=== PATIENT | female | born 1985 | race Caucasian/White ===

== ENCOUNTER 2018-03-29 18:56 | Emergency (ER) | payer OTHER, SELFPAY ==
[2018-03-29 21:10] LABS: Urine Blood 1+ (NEG); Urine Glucose NEGATIVE (NEG); Urine Protein NEGATIVE (NEG); Urine Specific Gravity 1.025 (1.005-1.030); Urine pH 6.5 (5.0-7.0)
[2018-03-29] MEDS ORDERED: CYCLOBENZAPRINE 10 MG TAB ONE (21:10)
[2018-03-29] MEDS ORDERED: IBUPROFEN 200 MG TAB PO ONE (21:11)
[2018-03-29] MEDS ORDERED: IBUPROFEN 400 MG TAB ONE (21:11)
--- NOTE | 2018-03-29 22:41 | RAD REPORT ---
EXAM DESCRIPTION: VAS - Extremity Venous Uni Ltd - 03/29/2018 10:10 pm CLINICAL HISTORY: Left leg pain COMPARISON: None. TECHNIQUE: Real-time sonographic evaluation of the right lower extremity deep venous systems was per formed. FINDINGS: Normal compressibility, flow augmentation, phasic flow and spontaneous flow are identified in the right lower extremity common femoral, superficial femoral, popliteal and posterior tibial vei ns. No intraluminal filling defects seen. Minimal amount of hemorrhage or reactive fluid seen in the musculature of the calf. IMPRESSION: No DVT in the right lower extremity. Small focus of hemorrhage or fluid in the left calf. This is 6 x 1 cm in size.
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
[2018-03-29 23:41] VITALS: O2SAT 98
[2018-03-29 23:44] VITALS: BP 128/89; TEMP 97.8
== END 2018-03-29 23:27 | disposition home or self-care (01) ==
LOC: ER 18:56
DX: M79.662 Pain in left lower leg (principal)
CPT/HCPCS: 81003; 81025; 93971; 99283

== ENCOUNTER 2019-07-29 10:09 | Emergency (ER) | payer SELFPAY ==
--- OUTSIDE RECORDS SUMMARY | 2019-07-29 10:11 | XMS REPORT ---
:1985 [facility] Address [address] [place] [address] Dr. Grady [address] [place] [id number] Care Team Providers Name Role Phone Unavailable Unavailable Unavailable Problems This patient has no known problems. Allergies, Adverse Reactions, Alerts This patient has no known allergies or adverse reactions. Medications This patient has no known medications.
--- NOTE | 2019-07-29 10:25 | ER ---
Nurse's Notes [facility] Name: Noé Gallegos Age: 33 yrs Sex: Female : 1985 Arrival Date: 07/29/2019 Time: 10:11 Bed 25 Private MD: Angélica Howe H Diagnosis: Allergic contact dermatitis due to plants, except food;Local infection of the skin and subcutaneous tissue, unspecified Presentation: 07/29 10:21 Presenting complaint: Patient states: Itchy rash that is spreading x 2 weeks. Pt ss believes it is poison PEREZ. Transition of care: patient was not received from another setting of care. Onset: The symptoms/episode began/occurred 2 week(s) ago. Anaphylaxis evaluation, no signs or symptoms of anaphylaxis were noted. Onset of symptoms was July 15, 2019. Risk Assessment: Do you want to hurt yourself or someone else? Patient reports no desire to harm self or others. Initial Sepsis Screen: Does the patient meet any 2 criteria? No. Patient's initial sepsis screen is negative. Does the patient have a suspected source of infection? No. Patient's initial sepsis screen is negative. Care prior to arrival: None. 10:21 Method Of Arrival: Ambulatory ss 10:21 Acuity: JESSICA 5 ss Historical: - Allergies: 10:25 No Known Allergies; ss - PMHx: 10:25 Anxiety; PTSD; ss - PSHx: 10:25 D \T\ C; ss - Immunization history:: Adult Immunizations up to date. - Social history:: Smoking status: Patient uses tobacco products, denies chronic smoking, but will smoke occasionally. - Ebola Screening: : Patient denies exposure to infectious person Patient denies travel to an Ebola-affected area in the 21 days before illness onset. Screenin:00 Abuse screen: Denies threats or abuse. Nutritional screening: No deficits noted. em Tuberculosis screening: No symptoms or risk factors identified. Fall Risk None identified. Assessment: 11:00 General: Appears in no apparent distress. uncomfortable, Behavior is calm, cooperative, em Denies fever. Pain: Denies pain. Neuro: Level of Consciousness is awake, alert, obeys commands, Oriented to person, place, time, situation, Appropriate for age. Cardiovascular: Capillary refill < 3 seconds Patient's skin is warm and dry. Respiratory: Airway is patent Respiratory effort is even, unlabored, Breath sounds are clear bilaterally. Derm: Rash noted that is itchy, raised, on abdomen, left foot, right arm, left arm and medial aspect of left thigh. Musculoskeletal: Capillary refill < 3 seconds, Range of motion: intact in all extremities. Vital Signs: 10:25 BP 140 / 98; Pulse 108; Resp 18; Temp 98.4; Pulse Ox 100% on R/A; Weight 94.8 kg; ss Height 5 ft. 4 in. (162.56 cm); 10:25 Body Mass Index 35.87 (94.80 kg, 162.56 cm) ED Course: 10:11 Patient arrived in ED. rg4 10:11 Angélica Howe DO is Private Physician. rg4 10:12 Loraine Stokes FNP-C is [facility]. kb 10:12 Nate Howe MD is Attending Physician. kb 10:24 Triage completed. ss 10:25 Arm band placed on left wrist. ss 10:29 Shant Mathews LVN is Primary Nurse. em 11:00 Patient has correct armband on for positive identification. Bed in low position. Call em light in reach. 11:12 No provider procedures requiring assistance completed. em 11:12 Patient did not have IV access during this emergency room visit. em Administered Medications: 11:00 Drug: predniSONE 40 mg Route: PO; em 11:16 Follow up: Response: No adverse reaction em 11:00 Drug: Pepcid 20 mg Route: PO; em 11:16 Follow up: Response: No adverse reaction em Outcome: 10:24 Discharge ordered by MD. kb 11:12 Discharged to home ambulatory. em 11:12 Condition: good 11:12 Discharge instructions given to patient, Instructed on discharge instructions, follow up and referral plans. medication usage, Demonstrated understanding of instructions, follow-up care, medications, Prescriptions given X 3. 11:17 Patient left the ED. em Signatures: Loraine Stokes FNP-C FNP-Shant Rocha LVN LVN em Gaviota Roy, RN RN Duyen Shahid rg4
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
[2019-07-29] MEDS ORDERED: predniSONE 20 MG TAB ONE (10:34)
[2019-07-29] MEDS ORDERED: FAMOTIDINE 20 MG TAB ONE (10:35)
[2019-07-29 11:22] VITALS: BP 140/98; TEMP 98.4; O2SAT 100
== END 2019-07-29 11:17 | disposition home or self-care (01) ==
LOC: ER 10:09
DX: L23.7 Allergic contact dermatitis due to plants, except food (principal); L08.9 Local infection of the skin and subcutaneous tissue, unspecified; Z72.0 Tobacco use
CPT/HCPCS: 99283; J7512

== ENCOUNTER 2024-06-23 06:15 | Emergency (ER) | payer OTHER, SELFPAY ==
--- OUTSIDE RECORDS SUMMARY | 2024-06-23 06:22 | XMS REPORT | Continuity of Care Document ---
Author Name Unknown Address [address] [facility] [address] [place] [address] [facility] Address [address] [facility] [address] [place] [address] Care Team Providers Care Medicine Technologist Name Role Phone Rosi Medley Primary Care Physician + [phone] [email or web address] Attending Clinician Unavaila Deysi Harrison DO Attending Clinician [phone] Doctor Unassigned, Akhiok Attending Clinician U Alberto Prasad DO Attending Clinician [phone] Rosi Medley Attending Clinician [phone] Lab, Adc Fam Pob I Attending Clinician Unavailab sarah Forbes ELECTRIC CRANE OPERATORBernie ReeseKarine Attending Clinician [phone] Ebrahim ELECTRIC CRANE OPERATOR, Rania Attending Clinician [phone] Omaghomi ELECTRIC CRANE OPERATOR Omayemi Attending Clinician [phone] UNKNOWN, ATTENDING Attending Clinician Unavailab sarah Castañedab1, [facility] Attending Clinician UnaROSI Calix Attending Clinician Unavailable LELAND GIMENEZ Attending Clinician Unavailable [email or web address] Admitting Clinician Unavaila ble Problems Condition Name Condition Details Condition Category Status Onset Date Resolution Date Last Treatment Date Treating Clinician Comments Source No known active problems No known active problems Disease [facility] Allergies, Adverse Reactions, Alerts Allergy Name Allergy Type Status Severity Reaction(s) Onset Date Inactive Date Treating Clinician Comments Source Sulfur - External Propensi ty to adverse reaction to drug Active 9-05 00:00: 00 Sulfa Dyne Propensi ty to adverse reaction s Active Unknown - See comments 7- 00:00: 00 [facility] SULFA DYNE DRUG Active Unknown-Cmnt 7-03 00:00: 00 [facility] Hydrocod one Propensi ty to adverse reaction to drug Active 7-28 00:00: 00 HYDROCOD ONE DRUG INGREDI Active N/V 2018-08 0- 00:00: 00 [facility] Hydrocod one Propensi ty to adverse reaction s Active Rash 2018-08 0- 00:00: 00 [facility] Social History Social Habit Start Date Stop Date Quantity Comments Source History of tobacco use Occasional tobacco smoker [facility] Exposure to SARS-CoV-2 (event) 2021-01-13 00:00:00 2021-02-12 09:43:00 Not sure [facility] History of Social function 2020-03-18 00:00:00 2020-03-18 00:00:00 [facility] Alcohol intake 2020-02-05 00:00:00 2020-02-05 00:00:00 Current drinker of alcohol (finding) [facility] Tobacco use and exposure 2019-10-31 00:00:00 2019-10-31 00:00:00 Smokeless tobacco non-user [facility] Tobacco Comment 2019-10-31 00:00:00 2019-10-31 00:00:00 twice monthly [facility] Alcohol Comment 2019-10-31 00:00:00 2019-10-31 00:00:00 3 x per month [facility] Sex Ass[birth year] At 1985 00:00:00 1985 00:00:00 [facility] Smoking Status Start Date Stop Date Source Occasional tobacco smoker 2019-10-31 00:00:00 [facility] Medications Ordered Medication Name Filled Medication Name Start Date Stop Date Current Medication? Ordering Clinician Indication Dosage Frequency Signature (SIG) Comments Components Source TAKE 1 CAPSULE TWICE DAILY. 08-19 00:00: 00 No APPLY SPARINGLY TO AFFECTED AREA(S) TWICE DAILY 2021-08 00:00: 00 No TAKE 2 TABS DAY 1 AND 1 TAB DAY 2-5 2021-08 00:00: 00 No APPLY DIRECTED. 2021-08 00:00: 00 No TAKE 5 ML EVERY 4 TO 6 HOURS NEEDED. 2021-08 00:00: 00 No TAKE 1 TABLET DAILY FOR THE FIRST WEEK. TAKE 2 TABLETS DAILY FOR THE SECOND WEEK TAKE 2 TABLETS IN THE MORNING AND 1 TABLET IN THE EVENING ON THE THIRD WEEK. TAKE 2 TABLETS IN THE MORNING AND 2 TABLETS IN THE AFTERNOON ON THE FORTH WEEK. 2021-08 00:00: 00 No TAKE 1 TABLET TWICE DAILY WITH FOOD. 2021-08 00:00: 00 No TAKE 1 CAPSULE 3 TIMES DAILY WITH MEALS. 2021-08 00:00: 00 No TAKE 1 TABLET EVERY 8 HOURS NEEDED. 2021-08 00:00: 00 No Dose Unknown 2021-08 00:00: 00 No Dose Unknown 2021-08 00:00: 00 No Dose Unknown 2021-08 00:00: 00 No TAKE 1 CAPSULE TWICE DAILY. 2021-08 00:00: 00 No TAKE 1 CAPSULE TWICE DAILY. 2021-08 0 00:00: 00 No TAKE 1 CAPSULE TWICE DAILY. 2021-08 025 00:00: 00 No TAKE 1 TABLET DAILY. 2021-08 0- 00:00: 00 No 375 TAKE 1 TABLET DAILY. 2021-08 0- 00:00: 00 No TAKE 1 TABLET DAILY. 2021-08 0- 00:00: 00 No TAKE 1 TABLET DAILY. 2021-08 0-21 00:00: 00 No Dose Unknown 2021-08 0-21 00:00: 00 No Dose Unknown 0 3-15 00:00: 00 No Dose Unknown 0 3-15 00:00: 00 No Dose Unknown 0 3-15 00:00: 00 No Dose Unknown 0 3-15 00:00: 00 No Dose Unknown 0 3-15 00:00: 00 No Dose Unknown 0 3-15 00:00: 00 No Dose Unknown 2022-0 3-15 00:00: 00 No Dose Unknown 2022-0 3-15 00:00: 00 No Dose Unknown 2022-0 3-15 00:00: 00 No Dose Unknown 2022-0 3-15 00:00: 00 No Dose Unknown 2022-0 3-15 00:00: 00 No Dose Unknown 2022-0 3-15 00:00: 00 No Dose Unknown 2022-0 3-15 00:00: 00 No Dose Unknown 2022-0 3-15 00:00: 00 No Dose Unknown 2022-0 3-15 00:00: 00 No Dose Unknown 2022-0 3-15 00:00: 00 No Dose Unknown 2022-0 3-15 00:00: 00 No Dose Unknown 2022-0 3-15 00:00: 00 No Dose Unknown 2022-0 3-15 00:00: 00 No Dose Unknown 2022-0 3-15 00:00: 00 No Dose Unknown 2022-0 3-15 00:00: 00 No Dose Unknown 2022-0 3-15 00:00: 00 No Dose Unknown 2022-0 3-15 00:00: 00 No Dose Unknown 2022-0 3-15 00:00: 00 No Dose Unknown 2022-0 3-15 00:00: 00 No Dose Unknown 2022-0 3-15 00:00: 00 No Dose Unknown 2022-0 3-15 00:00: 00 No Dose Unknown 2022-0 3-15 00:00: 00 No Dose Unknown 2022-0 3-15 00:00: 00 No Dose Unknown 2022-0 3-15 00:00: 00 No Dose Unknown 2022-0 3-15 00:00: 00 No Dose Unknown 2022-0 3-15 00:00: 00 No Dose Unknown 2022-0 3-15 00:00: 00 No Dose Unknown 2022-0 3-15 00:00: 00 No Dose Unknown 2022-0 3-15 00:00: 00 No Dose Unknown 2022-0 3-15 00:00: 00 No Dose Unknown 2022-0 3-15 00:00: 00 No Dose Unknown 2022-0 3-15 00:00: 00 No Dose Unknown 2022-0 3-15 00:00: 00 No Dose Unknown 2022-0 3-15 00:00: 00 No Dose Unknown 2022-0 3-15 00:00: 00 No Dose Unknown 2022-0 3-15 00:00: 00 No Dose Unknown 2022-0 3-15 00:00: 00 No Dose Unknown 2022-0 3-15 00:00: 00 No Dose Unknown 2022-0 3-15 00:00: 00 No Dose Unknown 2022-0 3-15 00:00: 00 No Dose Unknown 2022-0 3-15 00:00: 00 No Dose Unknown 2022-0 3-15 00:00: 00 No Dose Unknown 2022-0 3-15 00:00: 00 No Dose Unknown 2022-0 3-15 00:00: 00 No Dose Unknown 2-0 3-15 00:00: 00 No Dose Unknown 2022-0 3-15 00:00: 00 No Dose Unknown 2022-0 3-15 00:00: 00 No Dose Unknown 2022-0 3-15 00:00: 00 No Dose Unknown 2021-0 3-15 00:00: 00 No Dose Unknown 2-0 3-15 00:00: 00 No cefTRIAXone (ROCEPHIN) 1,000 mg in NaCl 0.9% (NS) 50 mL MINI-BAG 02-12 17:00: 00 02-12 16:35 :00 No 1000mg 1,000 mg, IV Piggyback, ONCE, 1 dose, 02/12/21 at 1200, 50 mL
Reas on for Anti-Infec tive: Empiric Therapy for Suspected Infection< br>Empiric Therapy Site: Urine
D uration of therapy: 72 hours [facility] dexamethaso ne (DECADRON PHOSPHATE) injection 10 mg 02-12 16:15: 00 02-12 15:13 :00 No 10mg 10 mg, IV Push, ONCE, 1 dose, 02/12/21 at 1115, STAT [facility] lidocaine 2% viscous (LIDOCAINE VISCOUS) 2 % solution 10 mL 02-12 16:00: 00 02-12 15:00 :00 No 10mL 10 mL, Oral, ONCE, 1 dose, 02/12/21 at 1100, TRIXIE [facility] ketorolac (TORADOL) injection 30 mg 02-12 15:30: 00 02-12 15:24 :00 No 30mg 30 mg, Slow IV Push, ONCE, 1 dose, 02/12/21 at 1030, TRIXIE
Fa culty member approving Restricted medication : DEYSI LANG [facility] NaCl 0.9% (NS) bolus infusion 1,000 mL 02-12 15:00: 00 02-12 16:30 :00 No 1000mL at 999 mL/hr, 1,000 mL, IV Infusion, ONCE, 1 dose, 02/12/21 at 1000, TRIXIE [facility] cefpodoxime 100 mg tablet 02-12 00:00: 00 02-20 04:59 :00 No [id number] 100mg Take 1 tablet by mouth 2 (two) times daily for 7 days. [facility] Dose Unknown 2019-0 8-13 00:00: 00 No Dose Unknown 2019-0 8-13 00:00: 00 No Dose Unknown 2019-0 8-13 00:00: 00 No Dose Unknown 2019-0 8-13 00:00: 00 No Dose Unknown 2019-0 8-13 00:00: 00 No Dose Unknown 2019-0 8-13 00:00: 00 No Dose Unknown 2019-0 8-13 00:00: 00 No Dose Unknown 2019-0 8-13 00:00: 00 No Dose Unknown 2019-0 8-13 00:00: 00 No Dose Unknown 2019-0 8-13 00:00: 00 No Dose Unknown 2019-0 8-13 00:00: 00 No Dose Unknown 2019-0 8-13 00:00: 00 No Dose Unknown 2019-0 8-13 00:00: 00 No Dose Unknown 2019-0 8-13 00:00: 00 No Dose Unknown 2019-0 8-13 00:00: 00 No Dose Unknown 2019-0 8-13 00:00: 00 No Dose Unknown 2019-0 8-11 00:00: 00 No Dose Unknown 2019-0 8-11 00:00: 00 No Dose Unknown 2019-0 8-11 00:00: 00 No Dose Unknown 2019-0 8-11 00:00: 00 No Dose Unknown 0 8- 00:00: 00 No Dose Unknown 0 8- 00:00: 00 No Dose Unknown 0 8- 00:00: 00 No Dose Unknown 0 8- 00:00: 00 No Dose Unknown 0 8- 00:00: 00 No Dose Unknown 0 8- 00:00: 00 No Dose Unknown 0 8- 00:00: 00 No Dose Unknown 0 8- 00:00: 00 No Dose Unknown 0 8- 00:00: 00 No Dose Unknown 0 8- 00:00: 00 No Dose Unknown 0 8- 00:00: 00 No Dose Unknown 0 - 00:00: 00 No Dose Unknown 0 8- 00:00: 00 No Dose Unknown 0 - 00:00: 00 No Dose Unknown 0 8- 00:00: 00 No Dose Unknown 0 - 00:00: 00 No Dose Unknown 0 - 00:00: 00 No Dose Unknown 0 03-23 00:00: 00 No Dose Unknown 0 - 00:00: 00 No Dose Unknown 0 - 00:00: 00 No Dose Unknown 0 - 00:00: 00 No Dose Unknown 0 - 00:00: 00 No Dose Unknown 0 - 00:00: 00 No Dose Unknown 0 8- 00:00: 00 No Dose Unknown 0 8- 00:00: 00 No Dose Unknown 0 - 00:00: 00 No Dose Unknown 0 - 00:00: 00 No Dose Unknown 0 8- 00:00: 00 No Dose Unknown 0 8- 00:00: 00 No Dose Unknown 0 8- 00:00: 00 No APPLY SPARINGLY TO AFFECTED AREA(S) TWICE DAILY 0 8- 00:00: 00 No Dose Unknown 0 8- 00:00: 00 No Dose Unknown 0 8- 00:00: 00 No Dose Unknown 0 8- 00:00: 00 No Dose Unknown 0 03-23 00:00: 00 No Dose Unknown 0 8 00:00: 00 No Dose Unknown 8 00:00: 00 No Dose Unknown 0 8 00:00: 00 No Dose Unknown 8 00:00: 00 No Dose Unknown 8 00:00: 00 No Dose Unknown 8 00:00: 00 No Dose Unknown 0 8 00:00: 00 No Dose Unknown 03-23 00:00: 00 No Dose Unknown 03-23 00:00: 00 No tamsulosin 0.4 mg capsule 0 8 00:00: 00 No 1mg tamsulosin 0.4 mg capsule 0 8 00:00: 00 No 1mg tamsulosin 0.4 mg capsule 8 00:00: 00 No 1mg tamsulosin 0.4 mg capsule 0 8 00:00: 00 No 1mg tamsulosin 0.4 mg capsule 0 8 00:00: 00 No 1mg tamsulosin 0.4 mg capsule 8 00:00: 00 No 1mg tamsulosin 0.4 mg capsule 8 00:00: 00 No 1mg tamsulosin 0.4 mg capsule 8 00:00: 00 No 1mg ciprofloxac in 500 mg tablet 0 7 00:00: 00 No 1mg naproxen 500 mg tablet 0 7 00:00: 00 No 1mg ciprofloxac in 500 mg tablet 0 7 00:00: 00 No 1mg naproxen 500 mg tablet 7 00:00: 00 No 1mg ciprofloxac in 500 mg tablet 0 7 00:00: 00 No 1mg naproxen 500 mg tablet 0 03-11 00:00: 00 No 1mg ciprofloxac in 500 mg tablet 03-11 00:00: 00 No 1mg naproxen 500 mg tablet 7 00:00: 00 No 1mg ciprofloxac in 500 mg tablet 0 03-11 00:00: 00 No 1mg naproxen 500 mg tablet 03-11 00:00: 00 No 1mg ciprofloxac in 500 mg tablet 03-11 00:00: 00 No 1mg naproxen 500 mg tablet 03-11 00:00: 00 No 1mg ciprofloxac in 500 mg tablet 03-11 00:00: 00 No 1mg naproxen 500 mg tablet 03-11 00:00: 00 No 1mg ciprofloxac in 500 mg tablet 03-11 00:00: 00 No 1mg naproxen 500 mg tablet 03-11 00:00: 00 No 1mg phentermine 37.5 mg capsule 02-04 15:29: 59 02-04 00:00 :00 No 37.5mg Take 37.5 mg by mouth every morning. [facility] copper 380 square mm IUD 02-04 15:29: 50 02-04 00:00 :00 No 1{IUD} 1 Intra Uterine Device by Intrauteri ne route once now. [facility] venlafaxine XR (EFFEXOR XR) 75 mg 24 hr capsule 02-04 14:47: 37 Yes 75mg Take 75 mg by mouth daily with breakfast. [facility] ALPRAZolam (XANAX) 2 mg tablet 02-04 14:47: 37 Yes 2mg Take 2 mg by mouth 2 (two) times daily as needed for Sleep. [facility] traZODone 50 mg tablet 02-04 14:47: 37 Yes 50mg Take 50 mg by mouth at bedtime. [facility] ALPRAZolam (XANAX) 2 mg tablet 02-04 09:47: 37 Yes 2mg Take 2 mg by mouth 2 (two) times daily as needed for Sleep. [facility] traZODone 50 mg tablet 02-04 09:47: 37 Yes 50mg Take 50 mg by mouth at bedtime. [facility] venlafaxine XR (EFFEXOR XR) 75 mg 24 hr capsule 02-04 09:47: 37 Yes 75mg Take 75 mg by mouth daily with breakfast. [facility] albuterol (PROAIR HFA) 90 mcg/actuati on inhaler 02-04 00:00: 00 Yes [id number] 2{puff} Inhale 2 Puffs every 4 (four) hours as needed for Wheezing or Shortness of Breath. [facility] phentermine 37.5 mg capsule 10-30 14:17: 16 Yes 37.5mg Take 37.5 mg by mouth every morning. [facility] venlafaxine XR (EFFEXOR XR) 75 mg 24 hr capsule 10-30 14:17: 16 Yes 75mg Take 75 mg by mouth daily with breakfast. [facility] ALPRAZolam (XANAX) 2 mg tablet 10-30 14:17: 15 Yes 2mg Take 2 mg by mouth 2 (two) times daily as needed for Sleep. [facility] traZODone 50 mg tablet 10-30 14:17: 15 Yes 50mg Take 50 mg by mouth at bedtime. [facility] copper 380 square mm IUD 10-30 14:10: 55 Yes 1{IUD} 1 Intra Uterine Device by Intrauteri ne route once now. [facility] benzonatate (TESSALON PERLES) 100 mg capsule 10-30 00:00: 11-10 04:59 :00 No [id number] 100mg Take 1 capsule by mouth 3 (three) times daily for 10 days. [facility] cephALEXin (KEFLEX) 500 mg capsule 10-30 00:00: 00 11-07 04:59 :00 No [id number] 500mg Take 1 capsule by mouth 2 (two) times daily for 7 days. [facility] ondansetron (ZOFRAN ODT) 4 mg disintegrat ing tablet 2018-08 00:00: 00 10-30 00:00 :00 No [id number] 4mg Take 1 tablet by mouth every 8 (eight) hours as needed for Nausea and Vomiting (N/V) (take prior to taking tylenol with codeine). [facility] acetaminoph en-codeine 300-30 mg tablet 2018-08 0-01 00:00: 00 10-30 00:00 :00 No [id number] 1{tbl} Take 1 tablet by mouth every 6 (six) hours as needed for Pain (scale 7-10). [facility] Vital Signs Vital Name Observation Time Observation Value Comments S ource Systolic blood pressure 2021-02-12 16:00:00 137 mm[Hg] [facility] Diastolic blood pressure 2021-02-12 16:00:00 85 mm[Hg] [facility] Heart rate 2021-02-12 16:00:00 109 /min Un[facility] Respiratory rate 2021-02-12 16:00:00 18 /min [facility] Oxygen saturation in Arterial blood by Pulse oximetry 2021-02-12 16:00:00 95 /min [facility] Body temperature 2021-02-12 14:41:00 37.61 Kori [facility] Body weight 2021-02-12 14:41:00 95.255 kg [facility] BMI 2021-02-12 14:41:00 36.05 kg/m2 [facility] Systolic blood pressure 2020-02-20 13:10:00 127 mm[Hg] [facility] Diastolic blood pressure 2020-02-20 13:10:00 83 mm[Hg] [facility] Heart rate 2020-02-20 13:10:00 102 /min Unive [facility] Body temperature 2020-02-20 13:10:00 36.78 Kori [facility] Respiratory rate 2020-02-20 13:10:00 18 /min [facility] Body height 2020-02-20 13:10:00 162.6 cm [facility] Body weight 2020-02-20 13:10:00 95.255 kg [facility] BMI 2020-02-20 13:10:00 36.05 kg/m2 [facility] Oxygen saturation in Arterial blood by Pulse oximetry 2020-02-20 13:10:00 97 /min [facility] Systolic blood pressure 2020-02-05 14:45:00 128 mm[Hg] [facility] Diastolic blood pressure 2020-02-05 14:45:00 88 mm[Hg] [facility] Heart rate 2020-02-05 14:45:00 89 /min Unive [facility] Body temperature 2020-02-05 14:45:00 36.94 Kori [facility] Respiratory rate 2020-02-05 14:45:00 19 /min [facility] Body height 2020-02-05 14:45:00 162.6 cm [facility] Body weight 2020-02-05 14:45:00 94.348 kg [facility] BMI 2020-02-05 14:45:00 35.70 kg/m2 [facility] Oxygen saturation in Arterial blood by Pulse oximetry 2020-02-05 14:45:00 98 /min [facility] Systolic blood pressure 2019-10-31 13:45:00 130 mm[Hg] [facility] Diastolic blood pressure 2019-10-31 13:45:00 80 mm[Hg] [facility] Heart rate 2019-10-31 13:45:00 96 /min [facility] Body temperature 2019-10-31 13:45:00 37.11 Kori [facility] Body weight 2019-10-31 13:45:00 54.432 kg [facility] BMI 2019-10-31 13:45:00 20.60 kg/m2 [facility] Oxygen saturation in Arterial blood by Pulse oximetry 2019-10-31 13:45:00 98 /min [facility] BP Systolic 2022-07-17 11:41:00 121 mm[Hg] BP Diastolic 2022-07-17 11:41:00 87 mm[Hg] Weight Measured 2022-07-17 11:41:00 211.40 pounds Height Measured 2022-07-17 11:41:00 64.00 inches Body Temperature 2022-07-17 11:41:00 99.00 degrees Heart Rate 2022-07-17 11:41:00 88.00 /min Respiratory Rate 2022-07-17 11:41:00 BP Systolic 2022-07-12 13:10:00 141 mm[Hg] BP Diastolic 2022-07-12 13:10:00 94 mm[Hg] Weight Measured 2022-07-12 13:10:00 212.60 pounds Height Measured 2022-07-12 13:10:00 64.00 inches Body Temperature 2022-07-12 13:10:00 97.90 degrees Heart Rate 2022-07-12 13:10:00 98.00 /min Respiratory Rate 2022-07-12 13:10:00 BP Systolic 2022-07-04 16:50:00 131 mm[Hg] BP Diastolic 2022-07-04 16:50:00 73 mm[Hg] Weight Measured 2022-07-04 16:50:00 212.60 pounds Height Measured 2022-07-04 16:50:00 64.00 inches Body Temperature 2022-07-04 16:50:00 98.40 degrees Heart Rate 2022-07-04 16:50:00 98.00 /min Respiratory Rate 2022-07-04 16:50:00 17.00 /min BP Systolic 2022-06-13 17:25:00 137 mm[Hg] BP Diastolic 2022-06-13 17:25:00 95 mm[Hg] Weight Measured 2022-06-13 17:25:00 209.60 pounds Height Measured 2022-06-13 17:25:00 64.00 inches Body Temperature 2022-06-13 17:25:00 98.20 degrees Heart Rate 2022-06-13 17:25:00 107.00 /min Respiratory Rate 2022-06-13 17:25:00 19.00 /min BP Systolic 2022-06-07 09:31:00 138 mm[Hg] BP Diastolic 2022-06-07 09:31:00 90 mm[Hg] Weight Measured 2022-06-07 09:31:00 209.80 pounds Height Measured 2022-06-07 09:31:00 64.00 inches Body Temperature 2022-06-07 09:31:00 98.20 degrees Heart Rate 2022-06-07 09:31:00 116.00 /min Respiratory Rate 2022-06-07 09:31:00 20.00 /min BP Systolic 2022-06-02 14:41:00 150 mm[Hg] BP Diastolic 2022-06-02 14:41:00 113 mm[Hg] Weight Measured 2022-06-02 14:41:00 211.00 pounds Height Measured 2022-06-02 14:41:00 64.00 inches Body Temperature 2022-06-02 14:41:00 98.20 degrees Heart Rate 2022-06-02 14:41:00 104.00 /min Respiratory Rate 2022-06-02 14:41:00 19.00 /min BP Systolic 2022-05-27 15:15:00 107 mm[Hg] BP Diastolic 2022-05-27 15:15:00 67 mm[Hg] Weight Measured 2022-05-27 15:15:00 201.60 pounds Height Measured 2022-05-27 15:15:00 64.00 inches Body Temperature 2022-05-27 15:15:00 97.50 degrees Heart Rate 2022-05-27 15:15:00 115.00 /min Respiratory Rate 2022-05-27 15:15:00 16.00 /min BP Systolic 2022-04-27 16:53:00 124 mm[Hg] BP Diastolic 2022-04-27 16:53:00 93 mm[Hg] Weight Measured 2022-04-27 16:53:00 203.20 pounds Height Measured 2022-04-27 16:53:00 64.00 inches Body Temperature 2022-04-27 16:53:00 98.30 degrees Heart Rate 2022-04-27 16:53:00 102.00 /min Respiratory Rate 2022-04-27 16:53:00 18.00 /min BP Systolic 2022-04-17 16:51:00 127 mm[Hg] BP Diastolic 2022-04-17 16:51:00 83 mm[Hg] Weight Measured 2022-04-17 16:51:00 203.00 pounds Height Measured 2022-04-17 16:51:00 64.00 inches Body Temperature 2022-04-17 16:51:00 97.90 degrees Heart Rate 2022-04-17 16:51:00 87.00 /min Respiratory Rate 2022-04-17 16:51:00 24.00 /min BP Systolic 2021-10-25 15:06:00 123 mm[Hg] BP Diastolic 2021-10-25 15:06:00 77 mm[Hg] Weight Measured 2021-10-25 15:06:00 196.60 pounds Height Measured 2021-10-25 15:06:00 64.00 inches Body Temperature 2021-10-25 15:06:00 98.40 degrees Heart Rate 2021-10-25 15:06:00 96.00 /min Respiratory Rate 2021-10-25 15:06:00 16.00 /min BP Systolic 2020-03-23 09:56:00 126 mm[Hg] BP Diastolic 2020-03-23 09:56:00 88 mm[Hg] Weight Measured 2020-03-23 09:56:00 236.20 pounds Height Measured 2020-03-23 09:56:00 64.00 inches Body Temperature 2020-03-23 09:56:00 98.90 degrees Heart Rate 2020-03-23 09:56:00 104.00 /min Respiratory Rate 2020-03-23 09:56:00 Procedures Procedure Date / Time Performed Performing Clinician Source [id number] Bx Skin Subcutaneous /mucous Membrane 1 Lesion 2022-06-13 00:00:00 URINALYSIS 2021-02-12 15:13:00 Deysi Lang [facility] RAPID STREP SCREEN FOR GROUP A 2021-02-12 15:13:00 Deysi Lang [facility] NOTICE OF PRIVACY PRACTICES 2021-02-12 14:31:57 Doctor Unassigned, Akhiok [facility] CONSENT/REFUSAL FOR DIAGNOSIS AND TREATMENT 2021-02-12 14:31:07 Doctor Unassigned, Akhiok [facility] XR CHEST 2 VW COVID 2020-02-20 14:36:12 Curtis Goode [facility] COVID-19 (PCR MOLECULAR TESTING) 2020-02-05 14:37:00 Mandy Barron [facility] STATEMENT OF PATIENT FINANCIAL RESPONSIBILITY 2019-10-31 05:01:00 Doctor Unassigned, Akhiok [facility] POCT URINALYSIS 2019-10-31 00:00:00 Rosi Schwartz [facility] POCT TEST 2019-10-31 00:00:00 Rosi Schwartz [facility] POCT FLU A AND B (MOLECULAR) 2019-10-31 00:00:00 Rosi Schwartz [facility] Plan of Care Planned Activity Planned Date Details Comments Source Goal Plan of Care Note [code = 28100-0] Goal Plan of Care Note [code = 39621-5] Goal Plan of Care Note [code = 28367-0] Goal Plan of Care Note [code = 09888-1] Goal Plan of Care Note [code = 73181-0] Goal Plan of Care Note [code = 88172-0] Goal Plan of Care Note [code = 77237-6] Goal Plan of Care Note [code = 76427-4] Goal Plan of Care Note [code = 16608-0] Goal Plan of Care Note [code = 45143-1] Goal Plan of Care Note [code = 97492-7] Goal Plan of Care Note [code = 34632-9] Goal Plan of Care Note [code = 04265-9] Goal Plan of Care Note [code = 81516-5] Goal Plan of Care Note [code = 65184-2] Goal Plan of Care Note [code = 38354-0] Goal Plan of Care Note [code = 28670-0] Goal Plan of Care Note [code = 49467-0] Goal Plan of Care Note [code = 59736-5] Goal Plan of Care Note [code = 39743-7] Goal Plan of Care Note [code = 38169-7] Goal Plan of Care Note [code = 12718-5] Goal Plan of Care Note [code = 29189-6] Goal Plan of Care Note [code = 66170-3] Goal Plan of Care Note [code = 18197-4] Goal Plan of Care Note [code = 94981-6] Goal Plan of Care Note [code = 52520-3] Goal Plan of Care Note [code = 35865-9] Goal Plan of Care Note [code = 92512-5] Goal Plan of Care Note [code = 26372-3] Goal Plan of Care Note [code = 26676-0] Goal Plan of Care Note [code = 03436-9] Goal Plan of Care Note [code = 25116-5] Goal Plan of Care Note [code = 05654-0] Goal Plan of Care Note [code = 00054-9] Goal Plan of Care Note [code = 22868-8] Goal Plan of Care Note [code = 67742-2] Goal Plan of Care Note [code = 53448-7] Goal Plan of Care Note [code = 34421-4] Goal Plan of Care Note [code = 92117-0] Goal Plan of Care Note [code = 05254-9] Goal Plan of Care Note [code = 89807-0] Goal Plan of Care Note [code = 38638-0] Goal Plan of Care Note [code = 62308-3] Goal Plan of Care Note [code = 40284-8] Goal Plan of Care Note [code = 84158-0] Goal Plan of Care Note [code = 73739-9] Goal Plan of Care Note [code = 24788-6] Goal Plan of Care Note [code = 23434-2] Goal Plan of Care Note [code = 17790-0] Goal Plan of Care Note [code = 63949-1] Goal Plan of Care Note [code = 45298-6] Goal Plan of Care Note [code = 31844-3] Goal Plan of Care Note [code = 61001-0] Goal Plan of Care Note [code = 89933-5] Goal Plan of Care Note [code = 11439-7] Goal Plan of Care Note [code = 57921-2] Goal Plan of Care Note [code = 96774-7] Goal Plan of Care Note [code = 13501-5] Goal Plan of Care Note [code = 44894-0] Goal Plan of Care Note [code = 42064-8] Goal Plan of Care Note [code = 49472-7] Goal Plan of Care Note [code = 96043-6] Goal Plan of Care Note [code = 99874-6] Goal Plan of Care Note [code = 91948-6] Goal Plan of Care Note [code = 41204-8] Goal Plan of Care Note [code = 76413-6] Goal Plan of Care Note [code = 75262-0] Goal Plan of Care Note [code = 75464-3] Goal Plan of Care Note [code = 52827-3] Goal Plan of Care Note [code = 24471-9] Goal Plan of Care Note [code = 40226-4] Goal Plan of Care Note [code = 63423-2] Goal Plan of Care Note [code = 98134-1] Goal Plan of Care Note [code = 90397-3] Goal Plan of Care Note [code = 26962-7] Goal Plan of Care Note [code = 10940-3] Goal Plan of Care Note [code = 61204-6] Goal Plan of Care Note [code = 30092-0] Goal Plan of Care Note [code = 16176-7] Goal Plan of Care Note [code = 30151-7] Goal Plan of Care Note [code = 59199-3] Goal Plan of Care Note [code = 69054-7] Goal Plan of Care Note [code = 29770-9] Goal Plan of Care Note [code = 38004-3] Goal Plan of Care Note [code = 95114-1] Goal Plan of Care Note [code = 47168-5] Goal Plan of Care Note [code = 21298-0] Goal Plan of Care Note [code = 45308-3] Goal Plan of Care Note [code = 47902-2] Goal Plan of Care Note [code = 01572-2] Goal Plan of Care Note [code = 94574-0] Goal Plan of Care Note [code = 60382-5] Goal Plan of Care Note [code = 00588-5] Goal Plan of Care Note [code = 56027-0] Goal Plan of Care Note [code = 92521-3] Goal Plan of Care Note [code = 44239-8] Goal Plan of Care Note [code = 37015-7] Goal Plan of Care Note [code = 86347-1] Goal Plan of Care Note [code = 33835-6] Goal Plan of Care Note [code = 07023-5] Goal Plan of Care Note [code = 77392-3] Goal Plan of Care Note [code = 71997-5] Goal Plan of Care Note [code = 74721-7] Goal Plan of Care Note [code = 87146-9] Goal Plan of Care Note [code = 23270-2] Goal Plan of Care Note [code = 72717-5] Goal Plan of Care Note [code = 06757-7] Goal Plan of Care Note [code = 02487-1] Goal Plan of Care Note [code = 83956-2] Goal Plan of Care Note [code = 94436-9] Goal Plan of Care Note [code = 24056-9] Goal Plan of Care Note [code = 43077-0] Goal Plan of Care Note [code = 14186-8] Goal Plan of Care Note [code = 03242-7] Goal Plan of Care Note [code = 90289-7] Goal Plan of Care Note [code = 76428-9] Goal Plan of Care Note [code = 86235-3] Goal Plan of Care Note [code = 72696-0] Goal Plan of Care Note [code = 43616-1] Goal Plan of Care Note [code = 63369-6] Goal Plan of Care Note [code = 54762-4] Goal Plan of Care Note [code = 86032-0] Goal Plan of Care Note [code = 35344-4] Goal Plan of Care Note [code = 20207-3] Goal Plan of Care Note [code = 02465-9] Goal Plan of Care Note [code = 41366-9] Goal Plan of Care Note [code = 41301-4] Goal Plan of Care Note [code = 68672-9] Goal Plan of Care Note [code = 38902-1] Goal Plan of Care Note [code = 89277-9] Goal Plan of Care Note [code = 84768-6] Goal Plan of Care Note [code = 95411-6] Goal Plan of Care Note [code = 86492-9] Goal Plan of Care Note [code = 82465-1] Goal Plan of Care Note [code = 33681-9] Goal Plan of Care Note [code = 66925-6] Goal Plan of Care Note [code = 53792-6] Goal Plan of Care Note [code = 56508-3] Goal Plan of Care Note [code = 19498-7] Goal Plan of Care Note [code = 74225-8] Goal Plan of Care Note [code = 26301-8] Goal Plan of Care Note [code = 62413-1] Goal Plan of Care Note [code = 13864-1] Goal Plan of Care Note [code = 03512-7] Goal Plan of Care Note [code = 11598-5] Goal Plan of Care Note [code = 63040-2] Goal Plan of Care Note [code = 21462-4] Goal Plan of Care Note [code = 46182-9] Goal Plan of Care Note [code = 94105-6] Goal Plan of Care Note [code = 63096-7] Goal Plan of Care Note [code = 60447-6] Goal Plan of Care Note [code = 23706-9] Goal Plan of Care Note [code = 74612-2] Goal Plan of Care Note [code = 70233-9] Goal Plan of Care Note [code = 87217-4] Goal Plan of Care Note [code = 75149-3] Goal Plan of Care Note [code = 92039-5] Goal Plan of Care Note [code = 49439-5] Goal Plan of Care Note [code = 11052-2] Goal Plan of Care Note [code = 99665-4] Goal Plan of Care Note [code = 02636-8] Goal Plan of Care Note [code = 34413-7] Goal Plan of Care Note [code = 82986-7] Goal Plan of Care Note [code = 66518-3] Goal Plan of Care Note [code = 52911-6] Goal Plan of Care Note [code = 30394-7] Goal Plan of Care Note [code = 16325-5] Goal Plan of Care Note [code = 94558-6] Goal Plan of Care Note [code = 40391-9] Goal Plan of Care Note [code = 38056-9] Goal Plan of Care Note [code = 72167-4] Goal Plan of Care Note [code = 80751-2] Goal Plan of Care Note [code = 38684-7] Goal Plan of Care Note [code = 61253-6] Goal Plan of Care Note [code = 69617-4] Goal Plan of Care Note [code = 85040-8] Goal Plan of Care Note [code = 80098-8] Goal Plan of Care Note [code = 38402-6] Goal Plan of Care Note [code = 92489-2] Goal Plan of Care Note [code = 28293-9] Goal Plan of Care Note [code = 86137-4] Goal Plan of Care Note [code = 06352-4] Goal Plan of Care Note [code = 45749-3] Goal Plan of Care Note [code = 40199-1] Goal Plan of Care Note [code = 21051-9] Goal Plan of Care Note [code = 45996-6] Goal Plan of Care Note [code = 74908-0] Goal Plan of Care Note [code = 97475-4] Goal Plan of Care Note [code = 10690-8] Goal Plan of Care Note [code = 79047-3] Goal Plan of Care Note [code = 61554-1] Goal Plan of Care Note [code = 84840-6] Goal Plan of Care Note [code = 80997-1] Goal Plan of Care Note [code = 69555-6] Goal Plan of Care Note [code = 85056-5] Goal Plan of Care Note [code = 28425-2] Goal Plan of Care Note [code = 47002-7] Goal Plan of Care Note [code = 90789-6] Goal Plan of Care Note [code = 33281-7] Goal Plan of Care Note [code = 95058-6] Goal Plan of Care Note [code = 51224-9] Goal Plan of Care Note [code = 55437-4] Goal Plan of Care Note [code = 10231-1] Goal Plan of Care Note [code = 70293-5] Goal Plan of Care Note [code = 39635-1] Goal Plan of Care Note [code = 93259-9] Goal Plan of Care Note [code = 64600-0] Goal Plan of Care Note [code = 68064-2] Goal Plan of Care Note [code = 74097-9] Goal Plan of Care Note [code = 59469-9] Goal Plan of Care Note [code = 64741-6] Goal Plan of Care Note [code = 55159-9] Goal Plan of Care Note [code = 84969-8] Goal Plan of Care Note [code = 55941-2] Goal Plan of Care Note [code = 54849-9] Goal Plan of Care Note [code = 32736-4] Goal Plan of Care Note [code = 52285-4] Goal Plan of Care Note [code = 78425-1] Goal Plan of Care Note [code = 92743-8] Goal Plan of Care Note [code = 00798-0] Goal Plan of Care Note [code = 09373-4] Goal Plan of Care Note [code = 89926-6] Goal Plan of Care Note [code = 22045-4] Goal Plan of Care Note [code = 53708-2] Goal Plan of Care Note [code = 16411-1] Goal Plan of Care Note [code = 28711-3] Goal Plan of Care Note [code = 58859-3] Goal Plan of Care Note [code = 15787-0] Goal Plan of Care Note [code = 71647-0] Goal Plan of Care Note [code = 95391-7] Goal Plan of Care Note [code = 46036-8] Goal Plan of Care Note [code = 32727-4] Goal Plan of Care Note [code = 48672-9] Goal Plan of Care Note [code = 99033-3] Goal Plan of Care Note [code = 11414-7] Goal Plan of Care Note [code = 03870-5] Goal Plan of Care Note [code = 76869-0] Goal Plan of Care Note [code = 68295-5] Goal Plan of Care Note [code = 92119-6] Goal Plan of Care Note [code = 70374-5] Goal Plan of Care Note [code = 81184-8] Goal Plan of Care Note [code = 20432-4] Goal Plan of Care Note [code = 35541-6] Goal Plan of Care Note [code = 68964-0] Goal Plan of Care Note [code = 32810-3] Goal Plan of Care Note [code = 21484-3] Goal Plan of Care Note [code = 92487-5] Goal Plan of Care Note [code = 33878-6] Goal Plan of Care Note [code = 11525-4] Goal Plan of Care Note [code = 72756-9] Goal Plan of Care Note [code = 35951-1] Goal Plan of Care Note [code = 92599-6] Goal Plan of Care Note [code = 99185-1] Goal Plan of Care Note [code = 99821-2] Goal Plan of Care Note [code = 51651-0] Goal Plan of Care Note [code = 25873-7] Goal Plan of Care Note [code = 93696-5] Goal Plan of Care Note [code = 87374-2] Goal Plan of Care Note [code = 62294-8] Goal Plan of Care Note [code = 04095-4] Goal Plan of Care Note [code = 22105-7] Goal Plan of Care Note [code = 43076-3] Goal Plan of Care Note [code = 34397-9] Goal Plan of Care Note [code = 97780-7] Goal Plan of Care Note [code = 60009-4] Goal Plan of Care Note [code = 47517-9] Goal Plan of Care Note [code = 20386-7] Goal Plan of Care Note [code = 94708-2] Goal Plan of Care Note [code = 96719-4] Goal Plan of Care Note [code = 45693-8] Goal Plan of Care Note [code = 74306-4] Goal Plan of Care Note [code = 19951-8] Goal Plan of Care Note [code = 75954-8] Goal Plan of Care Note [code = 64361-2] Goal Plan of Care Note [code = 63510-0] Goal Plan of Care Note [code = 31539-4] Goal Plan of Care Note [code = 81620-2] Goal Plan of Care Note [code = 76162-4] Goal Plan of Care Note [code = 07493-0] Goal Plan of Care Note [code = 56976-0] Goal Plan of Care Note [code = 95864-6] Goal Plan of Care Note [code = 87208-8] Goal Plan of Care Note [code = 32526-6] Goal Plan of Care Note [code = 51641-9] Goal Plan of Care Note [code = 07283-6] Goal Plan of Care Note [code = 33976-6] Goal Plan of Care Note [code = 01134-9] Encounters Start Date/Time End Date/Time Encounter Type Admission Type Attending [facility] Facility Care Department Encounter ID Source 2021-06-13 05:46:29 Emergency [facility] [id number] [facility] 2023-06-10 00:00:00 2023-06-10 00:00:00 Outpatient GC_GCBZW_Ka diyala_S [facility] [id number] [facility] 2023-02-26 11:49:47 2023-02-26 11:49:47 Outpatient SFA SFA [id number] Shailesh Jansen 2023-02-23 15:00:55 2023-02-23 15:00:55 Outpatient SFA LIZ [id number] Shailesh Jansen 2022-12-15 13:09:57 2022-12-15 13:09:57 Outpatient SFA SFA [id number] Shailesh Jansen 2022-11-01 10:13:51 2022-11-01 10:13:51 Outpatient SFA SFA [id number] Shailesh Jansen 2022-10-26 10:28:55 2022-10-26 10:28:55 Outpatient SFA SFA [id number] Shailesh Jansen 2022-08-30 17:22:11 2022-08-30 17:22:11 Outpatient SFA SFA [id number] Shailesh Jansen 2022-07-21 16:35:19 2022-07-21 16:35:19 Outpatient SFA SFA [id number] Shailesh Jansen 2022-07-17 11:29:02 2022-07-17 11:29:02 Outpatient SFA SFA [id number] Shailesh Jansen 2022-07-17 00:00:00 2022-07-17 00:00:00 Outpatient Visit [id number]- 97de-4267 -889e-042 n86coul82 [id number] x720031b-5 7de-4267-8 89e-042d44 ffeb86 2022-07-12 16:01:37 2022-07-12 16:01:37 Outpatient SFA SFA [id number] Shailesh Jansen 2022-07-12 00:00:00 2022-07-12 00:00:00 Outpatient Visit 73zixzn2- 421a-44ac -v16r-wj8 52g4951x6 [id number] 18bezlz5-2 21a-44ac-b 84b-el964l 4934a5 2022-07-04 16:47:43 2022-07-04 16:47:43 Outpatient SFA SFA [id number] Shailesh Jansen 2022-07-04 00:00:00 2022-07-04 00:00:00 Outpatient Visit 6j7121am- 9618-48fe -79k2-oyr [id number] 3k9546pa-1 618-48fe-9 3o2-dve0wa 207348 9032-11-01 17:24:56 2022-06-13 17:24:56 Outpatient SFA SFA [id number] Shailesh Jansen 2022-06-13 00:00:00 2022-06-13 00:00:00 Outpatient Visit 9y1f9598- 3v18-7576 -7d01-g3n jb9s3q867 [id number] 0u9j3623-4 g68-6213-0 u80-s3iyw3 d9g893 2022-06-08 10:59:27 2022-06-08 10:59:27 Outpatient SFA SFA [id number] Shailesh Jansen 2022-06-07 09:22:25 2022-06-07 09:22:25 Outpatient SFA SFA [id number] Shailesh Jansen 2022-06-02 00:00:00 2022-06-02 00:00:00 Outpatient Visit [id number]- w51c-31pc -j431-021 y032122ja [id number] 4551424v-g 97b-47ee-b 563-008a88 3812fc 2022-05-27 00:00:00 2022-05-27 00:00:00 Outpatient Visit kb18bkk3- 4b2x-3k29 -uz52-1aj 3g0ttf15z [id number] da88dla7-6 q9b-5r04-d p11-6ot1b1 fde27b 2022-05-26 00:00:00 2022-05-26 00:00:00 Outpatient Visit 6o9t9736- 1p56-0324 -94s1-52v 9es7d5218 [id number] 5u1p7968-7 k46-2105-3 1e9-72w6qh 2r9163 2022-05-11 16:00:37 2022-05-11 16:00:37 Outpatient SFA SFA [id number] Shailesh Jansen 2022-05-11 00:00:00 2022-05-11 00:00:00 Outpatient Visit 4w0p46s7- w0kl-8324 -979a-ff4 145o68ix3 [id number] 7b3a52d2-w 7fd-4282-9 79a-mk5107 c10df7 2022-05-03 00:00:00 2022-05-03 00:00:00 Outpatient Visit 568010au- ar66-2z7c -8730-043 u3d81vpbr [id number] 547785hx-s p38-7s2r-3 730-043f5d 71acbd 2022-04-27 00:00:00 2022-04-27 00:00:00 Outpatient Visit 6190il63- 147e-4849 -0a36-295 z8328p15b [id number] 3809xb99-6 47e-4849-8 m54-234v50 84a97e 2022-04-17 00:00:00 2022-04-17 00:00:00 Outpatient Visit 3k72gpl7- p569-7b11 -na60-08r 255i98l6p [id number] 2c52rgr7-a 401-4f00-a i55-98g252 e80f5f 2021-02-12 09:35:00 2021-02-12 11:50:00 Emergency Deysi Lang [facility] 1.114 350.1.13.10 4.2.7.2.686 [id number] [facility] 2021-02-12 00:00:00 2021-02-12 00:00:00 Orders Only Doctor Unassigned, [place] [facility] .114 350.1.13.10 4.2.7.2.686 [id number] [facility] 2020-11-02 00:00:00 2020-11-02 00:00:00 Patient Outreach Alberto Christopher [facility] .114 350.1.13.10 4.2.7.2.686 [id number] [facility] 2020-03-05 00:00:00 2020-03-05 00:00:00 Telephone Rosi Schwartz [facility] .2.840.114 350.1.13.10 4.2.7.2.686 [id number] [facility] 2020-03-02 10:27:48 2020-03-02 10:47:48 Laboratory Only Lab, [facility] 1.114 350.1.13.10 4.2.7.2.686 [id number] [facility] 2020-03-02 10:20:00 2020-03-02 10:20:00 Outpatient R [facility] [id number] [facility] 2020-02-22 00:00:00 2020-02-22 00:00:00 Telephone JaradJessa [facility] 1.114 350.1.13.10 4.2.7.2.686 [id number] [facility] 2020-02-20 09:15:00 2020-02-20 23:59:00 Hospital Encounter Yany Goode [facility] 1.114 350.1.13.10 4.2.7.2.686 [id number] [facility] 2020-02-20 16:20:00 2020-02-20 16:20:00 Outpatient R UNKNOWN, ATTENDING [facility] [id number] [facility] 2020-02-20 07:58:29 2020-02-20 09:00:32 Urgent Care Pob1, [facility] 1.114 350.1.13.10 4.2.7.2.686 [id number] [facility] 2020-02-20 08:00:00 2020-02-20 08:00:00 Outpatient R [facility] [id number] [facility] 2020-02-20 00:00:2020-02-20 00:00:00 Telephone Yany Goode [facility] 1.114 350.1.13.10 4.2.7.2.686 [id number] [facility] 2020-02-07 00:00:00 2020-02-07 00:00:00 Patient Secure Msg Doctor Unassigned, [place] [facility] 1..114 350.1.13.10 4.2.7.2.686 [id number] [facility] 2020-02-06 00:00:00 2020-02-06 00:00:00 Telephone Rosi Schwartz [facility] 1.114 350.1.13.10 4.2.7.2.686 [id number] [facility] 2020-02-06 00:00:00 2020-02-06 00:00:00 Telephone Rosi Schwartz [facility] 1..114 350.1.13.10 4.2.7.2.686 [id number] [facility] 2020-02-05 09:28:55 2020-02-05 10:12:30 Urgent Care Pob1, Acute Care Clinic Rosi Schwartz [facility] 1.114 350.1.13.10 4.2.7.2.686 [id number] [facility] 2020-02-05 09:40:00 2020-02-05 09:40:00 Outpatient R ROSI SCHWARTZ [facility] [id number] [facility] 2019-10-31 08:37:28 2019-10-31 13:23:18 Office Visit Pob1, Acute Care Clinic Rosi Schwartz [facility] 1.114 350.1.13.10 4.2.7.2.686 [id number] [facility] 2019-10-31 08:20:00 2019-10-31 08:20:00 Outpatient ROSI CAMARGO [facility] [id number] [facility] 2019-10-31 00:00:00 2019-10-31 00:00:00 Orders Only Doctor Unassigned, [place] [facility] 1.2.840.114 350.1.13.10 4.2.7.2.686 [id number] [facility] 2019-05-13 20:47:08 2019-05-13 20:47:08 Outpatient LELAND MEHTA [facility] [id number] [facility] Results Test Description Test Time Test Comments Results Result Co mments Source HEMOGLOBIN [id number] 01:58:41* Test Item Value Reference Range Interpretation Comme [facility] HEMOGLOBIN A1c (test code = 72222) 5.5 % 4.2-5.6 SURGICAL PATHOLOGY [id number] 00:00:00* Test Item Value Reference Range Interpretation Comme nts DIAGNOSIS: (test code = 8200) (NOTE) MICROSCOPIC DESCRIPTION: (te st code = 8210) (NOTE) CLINICAL DATA: (test code = 8401) (NOTE) GROSS DESCRIPTION: (test code = 8220) (NOTE) PATHOLOGIST: (test code = 8250) (NOTE) CPT: (test code = 8400) (NOTE) SURGICAL PATHOLOGY [id number] 00:00:00* Test Item Value Reference Range Interpretation Comme nts DIAGNOSIS: (test code = 8200) (NOTE) MICROSCOPIC DESCRIPTION: (te st code = 8210) (NOTE) CLINICAL DATA: (test code = 8401) (NOTE) GROSS DESCRIPTION: (test code = 8220) (NOTE) PATHOLOGIST: (test code = 8250) (NOTE) CPT: (test code = 8400) (NOTE) SURGICAL PATHOLOGY [id number] 00:00:00* Test Item Value Reference Range Interpretation Comme nts DIAGNOSIS: (test code = 8200) (NOTE) MICROSCOPIC DESCRIPTION: (te st code = 8210) (NOTE) CLINICAL DATA: (test code = 8401) (NOTE) GROSS DESCRIPTION: (test code = 8220) (NOTE) PATHOLOGIST: (test code = 8250) (NOTE) CPT: (test code = 8400) (NOTE) CULTURE, [id number] 15:52:04SPECIMEN NUMBER: [id number] CULTURE, URINE SPECIMEN NUMBER: [id number] SPECIMEN COMMENT: URINE SOURCE: URINE REPORT STATUS: FINAL ISOLATE NUMBER 1: ORGANISM: 06/04/2022 >100,000 CFU/ML GRAM NEGATIVE BACILLI IDENTIFICATION: 06/05/2022 ESCHERICHIA COLI E. COLI AMOXICILLIN/CA SENSITIVE <=8/4AMPICILLIN SENSITIVE <=8CEFAZOLIN SENSITIVE <=2CEFTRIAXONE SENSITIVE <=1CIPROFLOXACIN SENSITIVE <=1LEVOFLOXACIN SENSITIVE <=2NITROFURANTOIN SENSITIVE <=32PIP/TAZOBAC SENSITIVE <=16TETRACYCLINE SENSITIVE <=4TOBRAMYCIN SENSITIVE <=4TRIMETH/SULFA SENSITIVE <=2/38 NOTE: NUMBERS DISPLAYED REPRESENT MINIMUM INHIBITORY CONCENTRATION (GEMA) WHICH IS EXPRESSED IN MCG/ML.CULTURE, [id number] 00:00:00* Test Item Value Reference Range Interpretation Comme nts CULTURE, URINE (test code = 41962) SPECIMEN NUMBER: [id number] CULTURE, [id number] 00:00:00* Test Item Value Reference Range Interpretation Comme nts CULTURE, URINE (test code = 40685) SPECIMEN NUMBER: [id number] CULTURE, [id number] 00:00:00* Test Item Value Reference Range Interpretation Comme nts CULTURE, URINE (test code = 22925) SPECIMEN NUMBER: [id number] CULTURE, [id number] 00:00:00* Test Item Value Reference Range Interpretation Comme nts CULTURE, URINE (test code = 36399) SPECIMEN NUMBER: [id number] VAGINAL PATHOGENS DNA [id number] 14:58:02* Test Item Value Reference Range Interpretation Comme nts CHERYL SPECIES (test code = 55170) NEGATIVE NEGATIVE G. VAGINALIS (test code = 90636) NEGATIVE NEGATIVE T. VAGINALIS (test code = 56023) NEGATIVE NEGATIVE UNLESS OTHERWISE INDICATED, ALL TESTING PERFORMED [facility] [employer] [address] [place] [address] IT SPECIALIST: MARYJANE CLEMENTS M.D. CLIA NUMBER [id number] [place]. [id number] VAGINAL PATHOGENS DNA [id number] 00:00:00* Test Item Value Reference Range Interpretation Comme nts CHERYL SPECIES (test code = 47916) NEGATIVE G. VAGINALIS (test code = 60325) NEGATIVE T. VAGINALIS (test code = 73557) NEGATIVE VAGINAL PATHOGENS DNA [id number] 00:00:00* Test Item Value Reference Range Interpretation Comme nts CHERYL SPECIES (test code = 14529) NEGATIVE G. VAGINALIS (test code = 44825) NEGATIVE T. VAGINALIS (test code = 91808) NEGATIVE VAGINAL PATHOGENS DNA [id number] 00:00:00* Test Item Value Reference Range Interpretation Comme nts CHERYL SPECIES (test code = 92552) NEGATIVE G. VAGINALIS (test code = 11699) NEGATIVE T. VAGINALIS (test code = 52664) NEGATIVE VAGINAL PATHOGENS DNA [id number] 00:00:00* Test Item Value Reference Range Interpretation Comme nts CHERYL SPECIES (test code = 57493) NEGATIVE G. VAGINALIS (test code = 37444) NEGATIVE T. VAGINALIS (test code = 60989) NEGATIVE VITAMIN [id number] 17:52:17* Test Item Value Reference Range Interpretation Comme nts VITAMIN K1 (test code = 71597) 0.70 nmol/L 0.22-4.88 INTERPRETIVE INF ORMATION: Vitamin K1, SerumVitamin K concentration is reported as nanomoles per liter (nmol/L). To convert concentration to nanograms per milliliter (ng/mL), multiply the result by 0.45.This test was developed and its performance characteristics determined by [employer]. It has not been cleared or approved by the [place] Food and Drug Administration. This test was performed in a CLIA certified laboratory and is intended for clinical purposes. TESTING PERFORMED AT [facility], [address] [place] [address] [place] [id number] CLIA NO. [id number] VITAMIN C (ASCORBIC)2022-05-17 14:46:23* Test Item Value Reference Range Interpretation Comme nts VITAMIN C (ASCORBIC) (test code = 5020) 26 umol/L 23-114 INTERPRETIVE ANDRIY A: Vitamin C (Ascorbic Acid), PlasmaVitamin C concentrations lower than 11 umol/L indicate deficiency. Concentrations between 11 and 23 umol/L are consistent with a moderate risk of deficiency due to inadequate tissue stores. Vitamin C concentration is reported as micromoles per liter (umol/L). To convert concentration to milligrams per deciliter (mg/dL), multiply the result by 0.0176.This test was developed and its performance characteristics determined by [employer]. It has not been cleared or approved by the [place] Food and Drug Administration. This test was performed in a CLIA certified laboratory and is intended for clinical purposes. TESTING PERFORMED AT [place] [id number] [place]. [id number] CLIA NO. [id number] VITAMIN [id number] 12:13:32* Test Item Value Reference Range Interpretation Comme nts RETINOL (VITAMIN A) (test code = 03629) 0.54 mg/L 0.30-1.20 RETINYL PALMITATE (test code = 82159) <0.02 mg/L 0.00-0.10 INTERPRETATION (test code = 28691) Normal This test was developed and its performance characteristics determined by [employer]. It has not been cleared or approved by the [place] Food and Drug Administration. This test was performed in a CLIA certified laboratory and is intended for clinical purposes. TESTING PERFORMED AT [address] [address] [place]. [id number] CLIA NO. [id number] VITAMIN [id number] 12:13:32* Test Item Value Reference Range Interpretation Comme nts ALPHA-TOCOPHEROL (VIT E) (test code = 05827) 8.2 mg/L 5.5-18.0 This test was de veloped and its performance characteristics determined by [facility]. It has not been cleared or approved by the [place] Food and Drug Administration. This test was performed in a CLIA certified laboratory and is intended for clinical purposes. GAMMA-TOCOPHEROL (VIT E) (test code = 95518) 1.4 mg/L 0.0-6.0 TESTING PERFORME D AT [address] [address] [place]. [id number] CLIA NO. [id number] VITAMIN [id number] 00:00:00* Test Item Value Reference Range Interpretation Comme nts RETINOL (VITAMIN A) (test co de = 64746) 0.54 mg/L RETINYL PALMITATE (test code = 37078) <0.02 mg/L INTERPRETATION (test code = 90669) Normal VITAMIN C (ASCORBIC)2022-05-17 00:00:00* Test Item Value Reference Range Interpretation Comme nts VITAMIN C (ASCORBIC) (test c ode = 5020) 26 umol/L VITAMIN [id number] 00:00:00* Test Item Value Reference Range Interpretation Comme nts VITAMIN K1 (test code = 58402) 0.70 nmol/L VITAMIN [id number] 00:00:00* Test Item Value Reference Range Interpretation Comme nts ALPHA-TOCOPHEROL (VIT E) (te st code = 26508) 8.2 mg/L GAMMA-TOCOPHEROL (VIT E) (te st code = 48489) 1.4 mg/L VITAMIN [id number] 00:00:00* Test Item Value Reference Range Interpretation Comme nts RETINOL (VITAMIN A) (test co de = 06314) 0.54 mg/L RETINYL PALMITATE (test code = 45203) <0.02 mg/L INTERPRETATION (test code = 87764) Normal VITAMIN C (ASCORBIC)2022-05-17 00:00:00* Test Item Value Reference Range Interpretation Comme nts VITAMIN C (ASCORBIC) (test c ode = 5020) 26 umol/L VITAMIN [id number] 00:00:00* Test Item Value Reference Range Interpretation Comme nts VITAMIN K1 (test code = 41296) 0.70 nmol/L VITAMIN [id number] 00:00:00* Test Item Value Reference Range Interpretation Comme nts ALPHA-TOCOPHEROL (VIT E) (te st code = 58286) 8.2 mg/L GAMMA-TOCOPHEROL (VIT E) (te st code = 99164) 1.4 mg/L VITAMIN [id number] 00:00:00* Test Item Value Reference Range Interpretation Comme nts RETINOL (VITAMIN A) (test co de = 73479) 0.54 mg/L RETINYL PALMITATE (test code = 87042) <0.02 mg/L INTERPRETATION (test code = 07968) Normal VITAMIN C (ASCORBIC)2022-05-17 00:00:00* Test Item Value Reference Range Interpretation Comme nts VITAMIN C (ASCORBIC) (test c ode = 5020) 26 umol/L VITAMIN [id number] 00:00:00* Test Item Value Reference Range Interpretation Comme nts VITAMIN K1 (test code = 86904) 0.70 nmol/L VITAMIN [id number] 00:00:00* Test Item Value Reference Range Interpretation Comme nts ALPHA-TOCOPHEROL (VIT E) (te st code = 83480) 8.2 mg/L GAMMA-TOCOPHEROL (VIT E) (te st code = 60992) 1.4 mg/L VITAMIN [id number] 00:00:00* Test Item Value Reference Range Interpretation Comme nts RETINOL (VITAMIN A) (test co de = 67902) 0.54 mg/L RETINYL PALMITATE (test code = 52736) <0.02 mg/L INTERPRETATION (test code = 95995) Normal VITAMIN C (ASCORBIC)2022-05-17 00:00:00* Test Item Value Reference Range Interpretation Comme nts VITAMIN C (ASCORBIC) (test c ode = 5020) 26 umol/L VITAMIN [id number] 00:00:00* Test Item Value Reference Range Interpretation Comme nts VITAMIN K1 (test code = 88644) 0.70 nmol/L VITAMIN [id number] 00:00:00* Test Item Value Reference Range Interpretation Comme nts ALPHA-TOCOPHEROL (VIT E) (te st code = 81868) 8.2 mg/L GAMMA-TOCOPHEROL (VIT E) (te st code = 54218) 1.4 mg/L VITAMIN [id number] 00:00:00* Test Item Value Reference Range Interpretation Comme nts RETINOL (VITAMIN A) (test co de = 07931) 0.54 mg/L RETINYL PALMITATE (test code = 91542) <0.02 mg/L INTERPRETATION (test code = 01036) Normal VITAMIN C (ASCORBIC)2022-05-17 00:00:00* Test Item Value Reference Range Interpretation Comme nts VITAMIN C (ASCORBIC) (test c ode = 5020) 26 umol/L VITAMIN [id number] 00:00:00* Test Item Value Reference Range Interpretation Comme nts VITAMIN K1 (test code = 68987) 0.70 nmol/L VITAMIN [id number] 00:00:00* Test Item Value Reference Range Interpretation Comme nts ALPHA-TOCOPHEROL (VIT E) (te st code = 20474) 8.2 mg/L GAMMA-TOCOPHEROL (VIT E) (te st code = 29050) 1.4 mg/L VITAMIN [id number] 00:00:00* Test Item Value Reference Range Interpretation Comme nts RETINOL (VITAMIN A) (test co de = 13362) 0.54 mg/L RETINYL PALMITATE (test code = 07532) <0.02 mg/L INTERPRETATION (test code = 96332) Normal VITAMIN C (ASCORBIC)2022-05-17 00:00:00* Test Item Value Reference Range Interpretation Comme nts VITAMIN C (ASCORBIC) (test c ode = 5020) 26 umol/L VITAMIN [id number] 00:00:00* Test Item Value Reference Range Interpretation Comme nts VITAMIN K1 (test code = 92852) 0.70 nmol/L VITAMIN [id number] 00:00:00* Test Item Value Reference Range Interpretation Comme nts ALPHA-TOCOPHEROL (VIT E) (te st code = 06632) 8.2 mg/L GAMMA-TOCOPHEROL (VIT E) (te st code = 50868) 1.4 mg/L VITAMIN [id number] 00:00:00* Test Item Value Reference Range Interpretation Comme nts RETINOL (VITAMIN A) (test co de = 97830) 0.54 mg/L RETINYL PALMITATE (test code = 98572) <0.02 mg/L INTERPRETATION (test code = 91514) Normal VITAMIN C (ASCORBIC)2022-05-17 00:00:00* Test Item Value Reference Range Interpretation Comme nts VITAMIN C (ASCORBIC) (test c ode = 5020) 26 umol/L VITAMIN [id number] 00:00:00* Test Item Value Reference Range Interpretation Comme nts VITAMIN K1 (test code = 97648) 0.70 nmol/L VITAMIN [id number] 00:00:00* Test Item Value Reference Range Interpretation Comme nts ALPHA-TOCOPHEROL (VIT E) (te st code = 60538) 8.2 mg/L GAMMA-TOCOPHEROL (VIT E) (te st code = 84090) 1.4 mg/L VITAMIN [id number] 00:00:00* Test Item Value Reference Range Interpretation Comme nts RETINOL (VITAMIN A) (test co de = 76055) 0.54 mg/L RETINYL PALMITATE (test code = 77650) <0.02 mg/L INTERPRETATION (test code = 10218) Normal VITAMIN C (ASCORBIC)2022-05-17 00:00:00* Test Item Value Reference Range Interpretation Comme nts VITAMIN C (ASCORBIC) (test c ode = 5020) 26 umol/L VITAMIN [id number] 00:00:00* Test Item Value Reference Range Interpretation Comme nts VITAMIN K1 (test code = 96231) 0.70 nmol/L VITAMIN [id number] 00:00:00* Test Item Value Reference Range Interpretation Comme nts ALPHA-TOCOPHEROL (VIT E) (te st code = 22063) 8.2 mg/L GAMMA-TOCOPHEROL (VIT E) (te st code = 90956) 1.4 mg/L VITAMIN [id number] 11:13:49* Test Item Value Reference Range Interpretation Comme nts VITAMIN B1 (test code = 4952) 138 nmol/L 64-201 This test was de veloped and its performance characteristicsdetermined by [facility] ([facility]). It has not beencleared or approved by the U.S. Food and Drug Administration (FDA).The FDA has determined that such clearance or approval is notnecessary. This test is used for clinical purposes and should not beregarded as investigational or for research. [facility] is qualified toperform high complexity testing under the Clinical LaboratoryImprovement Amendments (CLIA). TESTING PERFORMED AT [facility], [address], [address] [address] CLIA NO: [id number] VITAMIN [id number] 00:00:00* Test Item Value Reference Range Interpretation Comme nts VITAMIN B1 (test code = 4952) 138 nmol/L VITAMIN [id number] 00:00:00* Test Item Value Reference Range Interpretation Comme nts VITAMIN B1 (test code = 4952) 138 nmol/L VITAMIN [id number] 00:00:00* Test Item Value Reference Range Interpretation Comme nts VITAMIN B1 (test code = 4952) 138 nmol/L VITAMIN [id number] 00:00:00* Test Item Value Reference Range Interpretation Comme nts VITAMIN B1 (test code = 4952) 138 nmol/L VITAMIN [id number] 00:00:00* Test Item Value Reference Range Interpretation Comme nts VITAMIN B1 (test code = 4952) 138 nmol/L VITAMIN [id number] 00:00:00* Test Item Value Reference Range Interpretation Comme nts VITAMIN B1 (test code = 4952) 138 nmol/L VITAMIN [id number] 00:00:00* Test Item Value Reference Range Interpretation Comme nts VITAMIN B1 (test code = 4952) 138 nmol/L VITAMIN [id number] 00:00:00* Test Item Value Reference Range Interpretation Comme nts VITAMIN B1 (test code = 4952) 138 nmol/L VITAMIN [id number] 12:58:33* Test Item Value Reference Range Interpretation Comme nts VITAMIN B-6 (test code = 4956) 97 nmol/L 20-125 This test was de veloped and its performance characteristicsdetermined by [facility] ([facility]). It has not beencleared or approved by the U.S. Food and Drug Administration (FDA).The FDA has determined that such clearance or approval is notnecessary. This test is used for clinical purposes and should not beregarded as investigational or for research. [facility] is qualified toperform high complexity testing under the Clinical LaboratoryImprovement Amendments (CLIA). TESTING PERFORMED AT [facility] [address] [place] [address], [address], [address] [address] CLIA NO: [id number] VITAMIN [id number] 00:00:00* Test Item Value Reference Range Interpretation Comme nts VITAMIN B-6 (test code = 4956) 97 nmol/L VITAMIN [id number] 00:00:00* Test Item Value Reference Range Interpretation Comme nts VITAMIN B-6 (test code = 4956) 97 nmol/L VITAMIN [id number] 00:00:00* Test Item Value Reference Range Interpretation Comme nts VITAMIN B-6 (test code = 4956) 97 nmol/L VITAMIN [id number] 00:00:00* Test Item Value Reference Range Interpretation Comme nts VITAMIN B-6 (test code = 4956) 97 nmol/L VITAMIN [id number] 00:00:00* Test Item Value Reference Range Interpretation Comme nts VITAMIN B-6 (test code = 4956) 97 nmol/L VITAMIN [id number] 00:00:00* Test Item Value Reference Range Interpretation Comme nts VITAMIN B-6 (test code = 4956) 97 nmol/L VITAMIN [id number] 00:00:00* Test Item Value Reference Range Interpretation Comme nts VITAMIN B-6 (test code = 4956) 97 nmol/L VITAMIN [id number] 00:00:00* Test Item Value Reference Range Interpretation Comme nts VITAMIN B-6 (test code = 4956) 97 nmol/L [facility], [id number] 18:23:15* Test Item Value Reference Range Interpretation Comme nts ALUMINUM, SERUM (test code = 4818) <5.0 ug/L 0.0-15.0 INTERPRETIVE INF ORMATION: Aluminum, SerumSerum aluminum greater than 50.0 ug/L is consistent with overload and may correlate with toxicity.Elevated results may be due to skin or collection-related contamination, including the use of a noncertified metal-free collection/transport tube. If contamination concerns exist due to elevated levels of serum aluminum, confirmation with a second specimen collected in a certified metal-free tube is recommended. This test was developed and its performance characteristics determined by [employer]. It has not been cleared or approved by the U.S. Food and Drug Administration. This test was performed in a CLIA-certified laboratory and is intended for clinical purposes. TESTING PERFORMED AT [facility], [address] [address] [place]. [id number] CLIA NO. [id number] UNLESS OTHERWISE INDICATED, ALL TESTING PERFORMED [facility] [address] [place] [address] IT SPECIALIST: MARYJANE CLEMENTS M.D. CLIA NUMBER [id number] [place]. [id number] ALUMINUM, [id number] 00:00:00* Test Item Value Reference Range Interpretation Comme nts ALUMINUM, SERUM (test code = 4818) <5.0 ug/L ALUMINUM, [id number] 00:00:00* Test Item Value Reference Range Interpretation Comme nts ALUMINUM, SERUM (test code = 4818) <5.0 ug/L ALUMINUM, [id number] 00:00:00* Test Item Value Reference Range Interpretation Comme nts ALUMINUM, SERUM (test code = 4818) <5.0 ug/L ALUMINUM, [id number] 00:00:00* Test Item Value Reference Range Interpretation Comme nts ALUMINUM, SERUM (test code = 4818) <5.0 ug/L ALUMINUM, [id number] 00:00:00* Test Item Value Reference Range Interpretation Comme nts ALUMINUM, SERUM (test code = 4818) <5.0 ug/L ALUMINUM, [id number] 00:00:00* Test Item Value Reference Range Interpretation Comme nts ALUMINUM, SERUM (test code = 4818) <5.0 ug/L ALUMINUM, [id number] 00:00:00* Test Item Value Reference Range Interpretation Comme nts ALUMINUM, SERUM (test code = 4818) <5.0 ug/L ALUMINUM, [id number] 00:00:00* Test Item Value Reference Range Interpretation Comme nts ALUMINUM, SERUM (test code = 4818) <5.0 ug/L MUMPS IgG AND [id number] 23:48:05* Test Item Value Reference Range Interpretation Comme nts MUMPS VIRUS IgG (test code = 41942) 60.1 AU/mL INTERPRETIVE INF ORMATION: Mumps Ab, IgG by MARYLIN 8.9 AU/mL or less .... Negative - No significant level of detectable IgG mumps virus antibody 9.0-10.9 AU/mL ....... Equivocal - Repeat testing in 10-14 days may be helpful 11.0 AU/mL or greater: Positive - IgG antibody to mumps virus detected, which may indicate a current or past exposure/ immunization to mumps virus. The best evidence for current infection is a significant change on two appropriately timed specimens, where both tests are done in the same laboratory at the same time. TESTING PERFORMED AT [facility], [address] [place] [address] [place] [id number] CLIA NO. [id number] MUMPS VIRUS IgM (test code = 4587) 0.43 IV See_Comment INTERPRETIVE INFORMATION: Mumps Virus Antibody, IgM 0.79 IV or less: Negative - No significant level of detectable IgM antibody to mumps virus. 0.80 - 1.20 IV: Equivocal - Borderline levels of IgM antibody to mumps virus. Repeat testing in 10-14 days may be helpful. 1.21 IV or greater: Positive - Presence of IgM antibody to mumps virus detected, which may indicate a current or recent infection. However, low levels of IgM antibody may occasionally persist for more than 12 months post-infection or immunization. TESTING PERFORMED AT [facility], [address] [address] [place] [id number] CLIA NO. [id number] [Automated message] The system which generated this result transmitted reference range: <=0.79. The reference range was not used to interpret this result as normal/abnormal. MUMPS IgG AND [id number] 00:00:00* Test Item Value Reference Range Interpretation Comme nts MUMPS VIRUS IgG (test code = 03748) 60.1 AU/mL MUMPS VIRUS IgM (test code = 4587) 0.43 IV MUMPS IgG AND [id number] 00:00:00* Test Item Value Reference Range Interpretation Comme nts MUMPS VIRUS IgG (test code = 50238) 60.1 AU/mL MUMPS VIRUS IgM (test code = 4587) 0.43 IV MUMPS IgG AND [id number] 00:00:00* Test Item Value Reference Range Interpretation Comme nts MUMPS VIRUS IgG (test code = 67673) 60.1 AU/mL MUMPS VIRUS IgM (test code = 4587) 0.43 IV MUMPS IgG AND [id number] 00:00:00* Test Item Value Reference Range Interpretation Comme nts MUMPS VIRUS IgG (test code = 09407) 60.1 AU/mL MUMPS VIRUS IgM (test code = 4587) 0.43 IV MUMPS IgG AND [id number] 00:00:00* Test Item Value Reference Range Interpretation Comme nts MUMPS VIRUS IgG (test code = 28927) 60.1 AU/mL MUMPS VIRUS IgM (test code = 4587) 0.43 IV MUMPS IgG AND [id number] 00:00:00* Test Item Value Reference Range Interpretation Comme nts MUMPS VIRUS IgG (test code = 76660) 60.1 AU/mL MUMPS VIRUS IgM (test code = 4587) 0.43 IV MUMPS IgG AND [id number] 00:00:00* Test Item Value Reference Range Interpretation Comme nts MUMPS VIRUS IgG (test code = 64161) 60.1 AU/mL MUMPS VIRUS IgM (test code = 4587) 0.43 IV MUMPS IgG AND [id number] 00:00:00* Test Item Value Reference Range Interpretation Comme nts MUMPS VIRUS IgG (test code = 55093) 60.1 AU/mL MUMPS VIRUS IgM (test code = 4587) 0.43 IV RUBEOLA IgG [id number] 15:44:27* Test Item Value Reference Range Interpretation Comme nts RUBE[facility]A IgG ANTIBODY (test code = 18136) >260.0 AU/ML SEE BELOW INTERPRETATION R UBEOLA IgG NEGATIVE . . . . . . . . . . . . AU/ML <13.5 EQUIVOCAL. . . . . . . . . . . . AU/ML 13.5-16.4 NOTE: CONSIDER RETESTING IN A CLINICALLY SUITABLE PERIOD OF TIME, NO SOONER THAN 1-2 WEEKS. POSITIVE . . . . . . . . . . . . AU/ML >=16.5 VARICELLA ZOSTER [id number] 15:44:27* Test Item Value Reference Range Interpretation Comme [facility] VARICELLA ZOSTER IgG (test code = 93510) 1152 INDEX SEE BELOW INTERPRETATION V ZV IgG NEGATIVE . . . . . . . . . . . . INDEX <135 EQUIVOCAL. . . . . . . . . . . . INDEX 135-164 NOTE: CONSIDER RETESTING IN A CLINICALLY SUITABLE PERIOD OF TIME, NO SOONER THAN 1-2 WEEKS. POSITIVE . . . . . . . . . . . . INDEX >=165 MUMPS VIRUS [id number] 15:44:27* Test Item Value Reference Range Interpretation Comme nts MUMPS VIRUS IgG (test code = 4585) 56.8 AU/ML SEE BELOW INTERPRETATION M UMPS IgG NEGATIVE . . . . . . . . . . . . AU/ML <9.0 EQUIVOCAL. . . . . . . . . . . . AU/ML 9.0-10.9 POSITIVE . . . . . . . . . . . . AU/ML >=11.0 ZINC, SERUM/[id number] 15:43:55* Test Item Value Reference Range Interpretation Comme [facility] ZINC, SERUM/PLASMA (test code = 4261) 82 MCG/DL 60-120 This test was de veloped and its performance characteristicsdetermined by [facility] It has not beencleared or approved by the U.S. Food and Drug Administration (FDA).The FDA has determined that such clearance or approval is notrequired for clinical use of this test. [facility] is regulated under theClinical Laboratory Improvement Amendments of 1988 (CLIA) as qualifiedto perform high complexity clinical testing. VITAMIN [id number] 06:48:12* Test Item Value Reference Range Interpretation Comme [facility] VITAMIN B-12 (test code = 2840) 402 PG/ML 200-950 FOLIC [id number] 06:48:12* Test Item Value Reference Range Interpretation Comme [facility] FOLIC ACID (test code = 2695) 7.2 UG/L SEE BELOW INTERPRETI VE RANGES DEFICIENCY . . . . . . . . . . . . . . . UG/L <4.0 POSSIBLE DEFICIENCY. . . . . . . . . . . UG/L 4.0-5.9 SUFFICIENT . . . . . . . . . . . . . . . UG/L >=6.0 RUBELLA ANTIBODY [id number] 05:16:54* Test Item Value Reference Range Interpretation Comme [facility] RUBELLA ANTIBODY SCREEN (test code = 4600) >500 IU/ML SEE BELOW INTERPRETATION R UBELLA IgG NON-REACTIVE/NON-IMMUNE . . . . . . . IU/ML <10 REACTIVE/IMMUNE . . . . . . . . . . . IU/ML >=10 RUBELLA IgG INTERP (test code = 04837) REACTIVE REACTIVE COMPREHENSIVE METABOLIC [id number] 05:11:12* Test Item Value Reference Range Interpretation Comme [facility] GLUCOSE (test code = 2217) 96 MG/DL 70-99 BUN (test code = 2208) 9 MG/DL 6-20 CREATININE (test code = 2213) 0.81 MG/DL 0.60-1.30 eGFR (2020 CKD-EPI) (test code = ) 97 ML/MIN/1.73 >60 CALC BUN/CREAT (test code = 2234) 11 RATIO 6-28 SODIUM (test code = 2230) 140 MEQ/L 133-146 POTASSIUM (test code = 2227) 4.2 MEQ/L 3.5-5.4 CHLORIDE (test code = 2214) 102 MEQ/L 95-107 CARBON DIOXIDE (test code = 2205) 25 MEQ/L 19-31 CALCIUM (test code = 2208) 9.3 MG/DL 8.5-10.5 PROTEIN, TOTAL (test code = 2228) 6.9 G/DL 6.1-8.3 ALBUMIN (test code = 2200) 4.6 G/DL 3.5-5.2 CALC GLOBULIN (test code = 2239) 2.3 G/DL 1.9-3.7 CALC A/G RATIO (test code = 2233) 2.0 RATIO 1.0-2.6 BILIRUBIN, TOTAL (test code = 2206) 0.4 MG/DL See_Comment [Automated me ssage] The system which generated this result transmitted reference range: <=1.2. The reference range was not used to interpret this result as normal/abnormal. ALKALINE PHOSPHATASE (test code = 2203) 69 U/L 40-114 AST (test code = 2217) 14 U/L 9-40 ALT (test code = 2218) 17 U/L 5-40 IRON BINDING CAPACITY AND IRON AND % [id number] 05:11:12* Test Item Value Reference Range Interpretation Comme nts IRON, SERUM (test code = 2221) 93 UG/DL 37-145 UNSATURATED IBC (test code = ) 229 UG/DL 112-347 CALC TOTAL IBC (test code = 2076) 322 UG/DL 250-450 CALC % IRON SAT (test code = 2078) 29 % 20-50 LIPID [id number] 05:11:12* Test Item Value Reference Range Interpretation Comme nts CHOLESTEROL (test code = 2209) 152 MG/DL <200 TRIGLYCERIDES (test code = 2231) 99 MG/DL <150 HDL CHOLESTEROL (test code = 2220) 50 MG/DL >39 CALC LDL CHOL (test code = 2237) 83 MG/DL <100 NOTE: CALCULATED LDL IS BASED ON KYM-MENDEZ METHOD WHICHINCLUDES ADJUSTABLE TRIGLYCERIDE:VLDL CHOLESTEROL RATIO.THIS FACTOR VARIES BY MEASURED TRIGLYCERIDE AND NON-HDLCHOLESTEROL CONCENTRATIONS WITH INCREASED CALCULATED LDL SEENIN HIGHER TRIGLYCERIDE OR LOWER NON-HDL SPECIMENS. FOR MOREINFORMATION, SEE CLIENT ANNOUNCEMENT AT [email or web address] RISK RATIO LDL/HDL (test code = 2238) 1.66 RATIO <3.22 HEMOGLOBIN [id number] 05:10:39* Test Item Value Reference Range Interpretation Comme [facility] HEMOGLOBIN A1c (test code = 39869) 5.3 % 4.2-5.6 VITAMIN D, 25 [id number] 04:44:27* Test Item Value Reference Range Interpretation Comme [facility] VITAMIN D, 25 OH (test code = 4958) 22 NG/ML SEE BELOW L NOTE: 25-HYDR OXYVITAMIN D ASSAY INCLUDES 25-HYDROXYVITAMIN D2 AND D3. METHODOLOGY IS CHEMILUMINESCENT IMMUNOASSAY. INTERPRETIVE RANGES PEDIATRIC (<17 YEARS) . . . . . . . . . . . NG/ML 20-100ADULT: INSUFFICIENT . . . . . . . . . . . . . . NG/ML <20 SUBOPTIMAL . . . . . . . . . . . . . . . NG/ML 20-29 OPTIMAL . . . . . . . . . . . . . . . . . NG/ML 30-100 [id number] 04:32:12* Test Item Value Reference Range Interpretation Comme [facility] MAGNESIUM (test code = 2226) 2.0 MG/DL 1.6-2.6 HEPATITIS B SURFACE [id number] 04:23:49* Test Item Value Reference Range Interpretation Comme [facility] HEPATITIS B SURFACE AB (test code = 2737) NON-REACTIVE NON-REACTIVE CBC W/AUTO DIFF WITH [id number] 02:54:08* Test Item Value Reference Range Interpretation Comme [facility] WBC (test code = 1001) 6.6 K/UL 3.5-11.0 RBC (test code = 1002) 4.70 M/UL 3.80-5.40 HEMOGLOBIN (test code = 1003) 13.8 G/DL 11.5-15.5 HEMATOCRIT (test code = 1004) 40.3 % 34.0-45.0 MCV (test code = 1005) 85.7 fL 80.0-99.0 MCH (test code = 1006) 29.4 PG 25.0-33.0 MCHC (test code = 1007) 34.2 G/DL 31.0-36.0 RDW (test code = 1038) 11.6 % 11.5-15.0 NEUTROPHILS (test code = 1008) 50.3 % LYMPHOCYTES (test code = 1010) 41.4 % MONOCYTES (test code = 1011) 7.0 % EOSINOPHILS (test code = 1012) 0.3 % BASOPHILS (test code = 1013) 0.8 % IMMATURE GRANULOCYTES (test code = 1036) 0.2 % NUCLEATED RBCS (test code = 1065) 0.0 /100 WBC'S See_Comment [Automated [employer] ge] The system which generated this result transmitted reference range: 0.0. The reference range was not used to interpret this result as normal/abnormal. PLATELET COUNT (test code = 1015) 363 K/UL 130-400 ABSOLUTE NEUTROPHILS (test code = 1066) 3.30 K/UL 1.50-7.50 ABSOLUTE LYMPHOCYTES (test code = 1067) 2.71 K/UL 1.00-4.00 ABSOLUTE MONOCYTES (test code = 1068) 0.46 K/UL 0.20-1.00 ABSOLUTE EOSINOPHILS (test code = 1040) 0.02 K/UL 0.00-0.50 ABSOLUTE BASOPHILS (test code = 1069) 0.05 K/UL 0.00-0.20 ABS IMMATURE GRANULOCYTES (test code = 1020) 0.01 K/UL 0.00-0.10 ABS NUCLEATED RBCS (test code = 14857) 0.00 K/UL 0.00-0.11 RUBEOLA IgG [id number] 00:00:00* Test Item Value Reference Range Interpretation Comme nts [facility] IgG ANTIBODY (test c ode = 64547) >260.0 AU/ML HEPATITIS B SURFACE [id number] 00:00:00* Test Item Value Reference Range Interpretation Comme nts HEPATITIS B SURFACE AB (test code = 2737) NON-REACTIVE VARICELLA ZOSTER [id number] 00:00:00* Test Item Value Reference Range Interpretation Comme nts VARICELLA ZOSTER IgG (test c ode = 26976) 1152 INDEX MUMPS VIRUS [id number] 00:00:00* Test Item Value Reference Range Interpretation Comme nts MUMPS VIRUS IgG (test code = 4585) 56.8 AU/ML RUBELLA ANTIBODY [id number] 00:00:00* Test Item Value Reference Range Interpretation Comme nts RUBELLA ANTIBODY SCREEN (kayden t code = 4600) >500 IU/ML RUBELLA IgG INTERP (test cod e = 59321) REACTIVE CBC W/AUTO [id number] 00:00:00* Test Item Value Reference Range Interpretation Comme nts WBC (test code = 1001) 6.6 K/UL RBC (test code = 1002) 4.70 M/UL HEMOGLOBIN (test code = 1003) 13.8 G/DL HEMATOCRIT (test code = 1004) 40.3 % MCV (test code = 1005) 85.7 fL MCH (test code = 1006) 29.4 PG MCHC (test code = 1007) 34.2 G/DL RDW (test code = 1038) 11.6 % NEUTROPHILS (test code = 1008) 50.3 % LYMPHOCYTES (test code = 1010) 41.4 % MONOCYTES (test code = 1011) 7.0 % EOSINOPHILS (test code = 1012) 0.3 % BASOPHILS (test code = 1013) 0.8 % IMMATURE GRANULOCYTES (test code = 1036) 0.2 % NUCLEATED RBCS (test code = 1065) 0.0 /100WBC'S PLATELET COUNT (test code = 1015) 363 K/UL ABSOLUTE NEUTROPHILS (test c ode = 1066) 3.30 K/UL ABSOLUTE LYMPHOCYTES (test c ode = 1067) 2.71 K/UL ABSOLUTE MONOCYTES (test cod e = 1068) 0.46 K/UL ABSOLUTE EOSINOPHILS (test c ode = 1040) 0.02 K/UL ABSOLUTE BASOPHILS (test cod e = 1069) 0.05 K/UL ABS IMMATURE GRANULOCYTES (t est code = 1020) 0.01 K/UL ABS NUCLEATED RBCS (test cod e = 23824) 0.00 K/UL LIPID [id number] 00:00:00* Test Item Value Reference Range Interpretation Comme nts CHOLESTEROL (test code = 2210) 152 MG/DL TRIGLYCERIDES (test code = 2232) 99 MG/DL HDL CHOLESTEROL (test code = 2220) 50 MG/DL CALC LDL CHOL (test code = 2237) 83 MG/DL RISK RATIO LDL/HDL (test cod e = 2238) 1.66 RATIO HEMOGLOBIN [id number] 00:00:00* Test Item Value Reference Range Interpretation Comme nts HEMOGLOBIN A1c (test code = 75587) 5.3 % COMPREHENSIVE METABOLIC [id number] 00:00:00* Test Item Value Reference Range Interpretation Comme nts GLUCOSE (test code = 2217) 96 MG/DL BUN (test code = 220) 9 MG/DL CREATININE (test code = 2214) 0.81 MG/DL eGFR (2020 CKD-EPI) (test co de = 43469) 97 ML/MIN/1.73 CALC BUN/CREAT (test code = 2235) 11 RATIO SODIUM (test code = 223) 140 MEQ/L POTASSIUM (test code = 2228) 4.2 MEQ/L CHLORIDE (test code = 2215) 102 MEQ/L CARBON DIOXIDE (test code = 2206) 25 MEQ/L CALCIUM (test code = 2209) 9.3 MG/DL PROTEIN, TOTAL (test code = 2229) 6.9 G/DL ALBUMIN (test code = 2201) 4.6 G/DL CALC GLOBULIN (test code = 2240) 2.3 G/DL CALC A/G RATIO (test code = 2234) 2.0 RATIO BILIRUBIN, TOTAL (test code = 2207) 0.4 MG/DL ALKALINE PHOSPHATASE (test code = 2204) 69 U/L AST (test code = 2218) 14 U/L ALT (test code = 2219) 17 U/L VITAMIN [id number] 00:00:00* Test Item Value Reference Range Interpretation Comme nts VITAMIN B-12 (test code = 2840) 402 PG/ML VITAMIN D, 25 [id number] 00:00:00* Test Item Value Reference Range Interpretation Comme nts VITAMIN D, 25 OH (test code = 4958) 22 NG/ML IRON BINDING CAPACITY AND IRON AND % [id number] 00:00:00* Test Item Value Reference Range Interpretation Comme nts IRON, SERUM (test code = 2222) 93 UG/DL UNSATURATED IBC (test code = 25789) 229 UG/DL CALC TOTAL IBC (test code = 207) 322 UG/DL CALC % IRON SAT (test code = 2079) 29 % ZINC, SERUM/[id number] 00:00:00* Test Item Value Reference Range Interpretation Comme nts ZINC, SERUM/PLASMA (test cod e = 4261) 82 MCG/DL [id number] 00:00:00* Test Item Value Reference Range Interpretation Comme nts MAGNESIUM (test code = 2226) 2.0 MG/DL FOLIC [id number] 00:00:00* Test Item Value Reference Range Interpretation Comme nts FOLIC ACID (test code = 2695) 7.2 UG/L RUBEOLA IgG [id number] 00:00:00* Test Item Value Reference Range Interpretation Comme [facility] RUBEOLA IgG ANTIBODY (test c ode = 24444) >260.0 AU/ML HEPATITIS B SURFACE [id number] 00:00:00* Test Item Value Reference Range Interpretation Comme nts HEPATITIS B SURFACE AB (test code = 2737) NON-REACTIVE VARICELLA ZOSTER [id number] 00:00:00* Test Item Value Reference Range Interpretation Comme [facility] VARICELLA ZOSTER IgG (test c ode = 01703) 1152 INDEX MUMPS VIRUS [id number] 00:00:00* Test Item Value Reference Range Interpretation Comme [facility] MUMPS VIRUS IgG (test code = 4585) 56.8 AU/ML RUBELLA ANTIBODY [id number] 00:00:00* Test Item Value Reference Range Interpretation Comme [facility] RUBELLA ANTIBODY SCREEN (kayden t code = 4600) >500 IU/ML RUBELLA IgG INTERP (test cod e = 60190) REACTIVE CBC W/AUTO [id number] 00:00:00* Test Item Value Reference Range Interpretation Comme nts WBC (test code = 1001) 6.6 K/UL RBC (test code = 1002) 4.70 M/UL HEMOGLOBIN (test code = 1003) 13.8 G/DL HEMATOCRIT (test code = 1004) 40.3 % MCV (test code = 1005) 85.7 fL MCH (test code = 1006) 29.4 PG MCHC (test code = 1007) 34.2 G/DL RDW (test code = 1038) 11.6 % NEUTROPHILS (test code = 1008) 50.3 % LYMPHOCYTES (test code = 1010) 41.4 % MONOCYTES (test code = 1011) 7.0 % EOSINOPHILS (test code = 1012) 0.3 % BASOPHILS (test code = 1013) 0.8 % IMMATURE GRANULOCYTES (test code = 1036) 0.2 % NUCLEATED RBCS (test code = 1065) 0.0 /100WBC'S PLATELET COUNT (test code = 1015) 363 K/UL ABSOLUTE NEUTROPHILS (test c ode = 1066) 3.30 K/UL ABSOLUTE LYMPHOCYTES (test c ode = 1067) 2.71 K/UL ABSOLUTE MONOCYTES (test cod e = 1068) 0.46 K/UL ABSOLUTE EOSINOPHILS (test c ode = 1040) 0.02 K/UL ABSOLUTE BASOPHILS (test cod e = 1069) 0.05 K/UL ABS IMMATURE GRANULOCYTES (t est code = 1020) 0.01 K/UL ABS NUCLEATED RBCS (test cod e = 89202) 0.00 K/UL LIPID [id number] 00:00:00* Test Item Value Reference Range Interpretation Comme nts CHOLESTEROL (test code = 2210) 152 MG/DL TRIGLYCERIDES (test code = 2232) 99 MG/DL HDL CHOLESTEROL (test code = 2220) 50 MG/DL CALC LDL CHOL (test code = 2237) 83 MG/DL RISK RATIO LDL/HDL (test cod e = 2238) 1.66 RATIO HEMOGLOBIN [id number] 00:00:00* Test Item Value Reference Range Interpretation Comme nts HEMOGLOBIN A1c (test code = 93862) 5.3 % COMPREHENSIVE METABOLIC [id number] 00:00:00* Test Item Value Reference Range Interpretation Comme nts GLUCOSE (test code = 2217) 96 MG/DL BUN (test code = 2208) 9 MG/DL CREATININE (test code = 2214) 0.81 MG/DL eGFR (2020 CKD-EPI) (test co de = 96050) 97 ML/MIN/1.73 CALC BUN/CREAT (test code = 2235) 11 RATIO SODIUM (test code = 2231) 140 MEQ/L POTASSIUM (test code = 2228) 4.2 MEQ/L CHLORIDE (test code = 2215) 102 MEQ/L CARBON DIOXIDE (test code = 6) 25 MEQ/L CALCIUM (test code = 9) 9.3 MG/DL PROTEIN, TOTAL (test code = 2229) 6.9 G/DL ALBUMIN (test code = 1) 4.6 G/DL CALC GLOBULIN (test code = 2240) 2.3 G/DL CALC A/G RATIO (test code = 2234) 2.0 RATIO BILIRUBIN, TOTAL (test code = 2206) 0.4 MG/DL ALKALINE PHOSPHATASE (test code = 4) 69 U/L AST (test code = 2218) 14 U/L ALT (test code = 9) 17 U/L VITAMIN [id number] 00:00:00* Test Item Value Reference Range Interpretation Comme nts VITAMIN B-12 (test code = 2840) 402 PG/ML VITAMIN D, 25 [id number] 00:00:00* Test Item Value Reference Range Interpretation Comme nts VITAMIN D, 25 OH (test code = 4958) 22 NG/ML IRON BINDING CAPACITY AND IRON AND % [id number] 00:00:00* Test Item Value Reference Range Interpretation Comme nts IRON, SERUM (test code = 222) 93 UG/DL UNSATURATED IBC (test code = 18971) 229 UG/DL CALC TOTAL IBC (test code = 2076) 322 UG/DL CALC % IRON SAT (test code = 2079) 29 % ZINC, SERUM/[id number] 00:00:00* Test Item Value Reference Range Interpretation Comme nts ZINC, SERUM/PLASMA (test cod e = 4261) 82 MCG/DL [id number] 00:00:00* Test Item Value Reference Range Interpretation Comme nts MAGNESIUM (test code = 2226) 2.0 MG/DL FOLIC [id number] 00:00:00* Test Item Value Reference Range Interpretation Comme nts FOLIC ACID (test code = 2695) 7.2 UG/L RUBEOLA IgG [id number] 00:00:00* Test Item Value Reference Range Interpretation Comme nts RUBEOLA IgG ANTIBODY (test c ode = 18844) >260.0 AU/ML HEPATITIS B SURFACE [id number] 00:00:00* Test Item Value Reference Range Interpretation Comme nts HEPATITIS B SURFACE AB (test code = 2737) NON-REACTIVE VARICELLA ZOSTER [id number] 00:00:00* Test Item Value Reference Range Interpretation Comme nts VARICELLA ZOSTER IgG (test c ode = 25744) 1152 INDEX MUMPS VIRUS [id number] 00:00:00* Test Item Value Reference Range Interpretation Comme nts MUMPS VIRUS IgG (test code = 4585) 56.8 AU/ML RUBELLA ANTIBODY [id number] 00:00:00* Test Item Value Reference Range Interpretation Comme nts RUBELLA ANTIBODY SCREEN (kayden t code = 4600) >500 IU/ML RUBELLA IgG INTERP (test cod e = 20657) REACTIVE CBC W/AUTO [id number] 00:00:00* Test Item Value Reference Range Interpretation Comme nts WBC (test code = 1001) 6.6 K/UL RBC (test code = 1002) 4.70 M/UL HEMOGLOBIN (test code = 1003) 13.8 G/DL HEMATOCRIT (test code = 1004) 40.3 % MCV (test code = 1005) 85.7 fL MCH (test code = 1006) 29.4 PG MCHC (test code = 1007) 34.2 G/DL RDW (test code = 1038) 11.6 % NEUTROPHILS (test code = 1008) 50.3 % LYMPHOCYTES (test code = 1010) 41.4 % MONOCYTES (test code = 1011) 7.0 % EOSINOPHILS (test code = 1012) 0.3 % BASOPHILS (test code = 1013) 0.8 % IMMATURE GRANULOCYTES (test code = 1036) 0.2 % NUCLEATED RBCS (test code = 1065) 0.0 /100WBC'S PLATELET COUNT (test code = 1015) 363 K/UL ABSOLUTE NEUTROPHILS (test c ode = 1066) 3.30 K/UL ABSOLUTE LYMPHOCYTES (test c ode = 1067) 2.71 K/UL ABSOLUTE MONOCYTES (test cod e = 1068) 0.46 K/UL ABSOLUTE EOSINOPHILS (test c ode = 1040) 0.02 K/UL ABSOLUTE BASOPHILS (test cod e = 1069) 0.05 K/UL ABS IMMATURE GRANULOCYTES (t est code = 1020) 0.01 K/UL ABS NUCLEATED RBCS (test cod e = 26781) 0.00 K/UL LIPID [id number] 00:00:00* Test Item Value Reference Range Interpretation Comme nts CHOLESTEROL (test code = 2210) 152 MG/DL TRIGLYCERIDES (test code = 2232) 99 MG/DL HDL CHOLESTEROL (test code = 2220) 50 MG/DL CALC LDL CHOL (test code = 2237) 83 MG/DL RISK RATIO LDL/HDL (test cod e = 2238) 1.66 RATIO HEMOGLOBIN [id number] 00:00:00* Test Item Value Reference Range Interpretation Comme nts HEMOGLOBIN A1c (test code = 82532) 5.3 % COMPREHENSIVE METABOLIC [id number] 00:00:00* Test Item Value Reference Range Interpretation Comme nts GLUCOSE (test code = 2217) 96 MG/DL BUN (test code = 2208) 9 MG/DL CREATININE (test code = 2214) 0.81 MG/DL eGFR (2020 CKD-EPI) (test co de = 18817) 97 ML/MIN/1.73 CALC BUN/CREAT (test code = 2235) 11 RATIO SODIUM (test code = 2231) 140 MEQ/L POTASSIUM (test code = 2228) 4.2 MEQ/L CHLORIDE (test code = 2215) 102 MEQ/L CARBON DIOXIDE (test code = 2206) 25 MEQ/L CALCIUM (test code = 2209) 9.3 MG/DL PROTEIN, TOTAL (test code = 2229) 6.9 G/DL ALBUMIN (test code = 2201) 4.6 G/DL CALC GLOBULIN (test code = 2240) 2.3 G/DL CALC A/G RATIO (test code = 2234) 2.0 RATIO BILIRUBIN, TOTAL (test code = 2207) 0.4 MG/DL ALKALINE PHOSPHATASE (test code = 2204) 69 U/L AST (test code = 2218) 14 U/L ALT (test code = 2219) 17 U/L VITAMIN [id number] 00:00:00* Test Item Value Reference Range Interpretation Comme [facility] VITAMIN B-12 (test code = 2840) 402 PG/ML VITAMIN D, 25 [id number] 00:00:00* Test Item Value Reference Range Interpretation Comme [facility] VITAMIN D, 25 OH (test code = 4958) 22 NG/ML IRON BINDING CAPACITY AND IRON AND % [id number] 00:00:00* Test Item Value Reference Range Interpretation Comme nts IRON, SERUM (test code = 2222) 93 UG/DL UNSATURATED IBC (test code = 62559) 229 UG/DL CALC TOTAL IBC (test code = 2077) 322 UG/DL CALC % IRON SAT (test code = 2079) 29 % ZINC, SERUM/[id number] 00:00:00* Test Item Value Reference Range Interpretation Comme nts ZINC, SERUM/PLASMA (test cod e = 4261) 82 MCG/DL [id number] 00:00:00* Test Item Value Reference Range Interpretation Comme nts MAGNESIUM (test code = 2226) 2.0 MG/DL FOLIC [id number] 00:00:00* Test Item Value Reference Range Interpretation Comme nts FOLIC ACID (test code = 2695) 7.2 UG/L RUBEOLA IgG [id number] 00:00:00* Test Item Value Reference Range Interpretation Comme [facility] RUBEOLA IgG ANTIBODY (test c ode = 63557) >260.0 AU/ML HEPATITIS B SURFACE [id number] 00:00:00* Test Item Value Reference Range Interpretation Comme [facility] HEPATITIS B SURFACE AB (test code = 2737) NON-REACTIVE VARICELLA ZOSTER [id number] 00:00:00* Test Item Value Reference Range Interpretation Comme [facility] VARICELLA ZOSTER IgG (test c ode = 27700) 1152 INDEX MUMPS VIRUS [id number] 00:00:00* Test Item Value Reference Range Interpretation Comme [facility] MUMPS VIRUS IgG (test code = 4585) 56.8 AU/ML RUBELLA ANTIBODY [id number] 00:00:00* Test Item Value Reference Range Interpretation Comme nts RUBELLA ANTIBODY SCREEN (kayden t code = 4600) >500 IU/ML RUBELLA IgG INTERP (test cod e = 84051) REACTIVE CBC W/AUTO [id number] 00:00:00* Test Item Value Reference Range Interpretation Comme nts WBC (test code = 1001) 6.6 K/UL RBC (test code = 1002) 4.70 M/UL HEMOGLOBIN (test code = 1003) 13.8 G/DL HEMATOCRIT (test code = 1004) 40.3 % MCV (test code = 1005) 85.7 fL MCH (test code = 1006) 29.4 PG MCHC (test code = 1007) 34.2 G/DL RDW (test code = 1038) 11.6 % NEUTROPHILS (test code = 1008) 50.3 % LYMPHOCYTES (test code = 1010) 41.4 % MONOCYTES (test code = 1011) 7.0 % EOSINOPHILS (test code = 1012) 0.3 % BASOPHILS (test code = 1013) 0.8 % IMMATURE GRANULOCYTES (test code = 1036) 0.2 % NUCLEATED RBCS (test code = 1065) 0.0 /100WBC'S PLATELET COUNT (test code = 1015) 363 K/UL ABSOLUTE NEUTROPHILS (test c ode = 1066) 3.30 K/UL ABSOLUTE LYMPHOCYTES (test c ode = 1067) 2.71 K/UL ABSOLUTE MONOCYTES (test cod e = 1068) 0.46 K/UL ABSOLUTE EOSINOPHILS (test c ode = 1040) 0.02 K/UL ABSOLUTE BASOPHILS (test cod e = 1069) 0.05 K/UL ABS IMMATURE GRANULOCYTES (t est code = 1020) 0.01 K/UL ABS NUCLEATED RBCS (test cod e = 22648) 0.00 K/UL LIPID [id number] 00:00:00* Test Item Value Reference Range Interpretation Comme nts CHOLESTEROL (test code = 2210) 152 MG/DL TRIGLYCERIDES (test code = 2232) 99 MG/DL HDL CHOLESTEROL (test code = 2220) 50 MG/DL CALC LDL CHOL (test code = 2237) 83 MG/DL RISK RATIO LDL/HDL (test cod e = 2238) 1.66 RATIO HEMOGLOBIN [id number] 00:00:00* Test Item Value Reference Range Interpretation Comme nts HEMOGLOBIN A1c (test code = 94483) 5.3 % COMPREHENSIVE METABOLIC [id number] 00:00:00* Test Item Value Reference Range Interpretation Comme nts GLUCOSE (test code = 2217) 96 MG/DL BUN (test code = 2208) 9 MG/DL CREATININE (test code = 2214) 0.81 MG/DL eGFR (2020 CKD-EPI) (test co de = 79621) 97 ML/MIN/1.73 CALC BUN/CREAT (test code = 2235) 11 RATIO SODIUM (test code = 2231) 140 MEQ/L POTASSIUM (test code = 2228) 4.2 MEQ/L CHLORIDE (test code = 2215) 102 MEQ/L CARBON DIOXIDE (test code = 2206) 25 MEQ/L CALCIUM (test code = 2208) 9.3 MG/DL PROTEIN, TOTAL (test code = 2228) 6.9 G/DL ALBUMIN (test code = 2201) 4.6 G/DL CALC GLOBULIN (test code = 2240) 2.3 G/DL CALC A/G RATIO (test code = 2234) 2.0 RATIO BILIRUBIN, TOTAL (test code = 2206) 0.4 MG/DL ALKALINE PHOSPHATASE (test code = 2203) 69 U/L AST (test code = 2217) 14 U/L ALT (test code = 2218) 17 U/L VITAMIN [id number] 00:00:00* Test Item Value Reference Range Interpretation Comme nts VITAMIN B-12 (test code = 2840) 402 PG/ML VITAMIN D, 25 [id number] 00:00:00* Test Item Value Reference Range Interpretation Comme nts VITAMIN D, 25 OH (test code = 4958) 22 NG/ML IRON BINDING CAPACITY AND IRON AND % [id number] 00:00:00* Test Item Value Reference Range Interpretation Comme nts IRON, SERUM (test code = 222) 93 UG/DL UNSATURATED IBC (test code = 93462) 229 UG/DL CALC TOTAL IBC (test code = 2076) 322 UG/DL CALC % IRON SAT (test code = 2078) 29 % ZINC, SERUM/[id number] 00:00:00* Test Item Value Reference Range Interpretation Comme nts ZINC, SERUM/PLASMA (test cod e = 4261) 82 MCG/DL [id number] 00:00:00* Test Item Value Reference Range Interpretation Comme nts MAGNESIUM (test code = 2225) 2.0 MG/DL FOLIC [id number] 00:00:00* Test Item Value Reference Range Interpretation Comme nts FOLIC ACID (test code = 2695) 7.2 UG/L RUBEOLA IgG [id number] 00:00:00* Test Item Value Reference Range Interpretation Comme nts RUBEOLA IgG ANTIBODY (test c ode = 61151) >260.0 AU/ML HEPATITIS B SURFACE [id number] 00:00:00* Test Item Value Reference Range Interpretation Comme nts HEPATITIS B SURFACE AB (test code = 2737) NON-REACTIVE VARICELLA ZOSTER [id number] 00:00:00* Test Item Value Reference Range Interpretation Comme nts VARICELLA ZOSTER IgG (test c ode = 25569) 1152 INDEX MUMPS VIRUS [id number] 00:00:00* Test Item Value Reference Range Interpretation Comme nts MUMPS VIRUS IgG (test code = 4585) 56.8 AU/ML RUBELLA ANTIBODY [id number] 00:00:00* Test Item Value Reference Range Interpretation Comme nts RUBELLA ANTIBODY SCREEN (kayden t code = 4600) >500 IU/ML RUBELLA IgG INTERP (test cod e = 36611) REACTIVE CBC W/AUTO [id number] 00:00:00* Test Item Value Reference Range Interpretation Comme nts WBC (test code = 1001) 6.6 K/UL RBC (test code = 1002) 4.70 M/UL HEMOGLOBIN (test code = 1003) 13.8 G/DL HEMATOCRIT (test code = 1004) 40.3 % MCV (test code = 1005) 85.7 fL MCH (test code = 1006) 29.4 PG MCHC (test code = 1007) 34.2 G/DL RDW (test code = 1038) 11.6 % NEUTROPHILS (test code = 1008) 50.3 % LYMPHOCYTES (test code = 1010) 41.4 % MONOCYTES (test code = 1011) 7.0 % EOSINOPHILS (test code = 1012) 0.3 % BASOPHILS (test code = 1013) 0.8 % IMMATURE GRANULOCYTES (test code = 1036) 0.2 % NUCLEATED RBCS (test code = 1065) 0.0 /100WBC'S PLATELET COUNT (test code = 1015) 363 K/UL ABSOLUTE NEUTROPHILS (test c ode = 1066) 3.30 K/UL ABSOLUTE LYMPHOCYTES (test c ode = 1067) 2.71 K/UL ABSOLUTE MONOCYTES (test cod e = 1068) 0.46 K/UL ABSOLUTE EOSINOPHILS (test c ode = 1040) 0.02 K/UL ABSOLUTE BASOPHILS (test cod e = 1069) 0.05 K/UL ABS IMMATURE GRANULOCYTES (t est code = 1020) 0.01 K/UL ABS NUCLEATED RBCS (test cod e = 50881) 0.00 K/UL LIPID [id number] 00:00:00* Test Item Value Reference Range Interpretation Comme nts CHOLESTEROL (test code = 2210) 152 MG/DL TRIGLYCERIDES (test code = 2232) 99 MG/DL HDL CHOLESTEROL (test code = 2220) 50 MG/DL CALC LDL CHOL (test code = 2237) 83 MG/DL RISK RATIO LDL/HDL (test cod e = 2238) 1.66 RATIO HEMOGLOBIN [id number] 00:00:00* Test Item Value Reference Range Interpretation Comme nts HEMOGLOBIN A1c (test code = 79966) 5.3 % COMPREHENSIVE METABOLIC [id number] 00:00:00* Test Item Value Reference Range Interpretation Comme nts GLUCOSE (test code = 2217) 96 MG/DL BUN (test code = 2208) 9 MG/DL CREATININE (test code = 2214) 0.81 MG/DL eGFR (2020 CKD-EPI) (test co de = 98585) 97 ML/MIN/1.73 CALC BUN/CREAT (test code = 2235) 11 RATIO SODIUM (test code = 2231) 140 MEQ/L POTASSIUM (test code = 2228) 4.2 MEQ/L CHLORIDE (test code = 2215) 102 MEQ/L CARBON DIOXIDE (test code = 2206) 25 MEQ/L CALCIUM (test code = 2209) 9.3 MG/DL PROTEIN, TOTAL (test code = 2229) 6.9 G/DL ALBUMIN (test code = 2201) 4.6 G/DL CALC GLOBULIN (test code = 2240) 2.3 G/DL CALC A/G RATIO (test code = 2234) 2.0 RATIO BILIRUBIN, TOTAL (test code = 2207) 0.4 MG/DL ALKALINE PHOSPHATASE (test code = 2204) 69 U/L AST (test code = 2218) 14 U/L ALT (test code = 2219) 17 U/L VITAMIN [id number] 00:00:00* Test Item Value Reference Range Interpretation Comme nts VITAMIN B-12 (test code = 2840) 402 PG/ML VITAMIN D, 25 [id number] 00:00:00* Test Item Value Reference Range Interpretation Comme nts VITAMIN D, 25 OH (test code = 4958) 22 NG/ML IRON BINDING CAPACITY AND IRON AND % [id number] 00:00:00* Test Item Value Reference Range Interpretation Comme nts IRON, SERUM (test code = 2222) 93 UG/DL UNSATURATED IBC (test code = 96520) 229 UG/DL CALC TOTAL IBC (test code = 2077) 322 UG/DL CALC % IRON SAT (test code = 2079) 29 % ZINC, SERUM/[id number] 00:00:00* Test Item Value Reference Range Interpretation Comme nts ZINC, SERUM/PLASMA (test cod e = 4261) 82 MCG/DL [id number] 00:00:00* Test Item Value Reference Range Interpretation Comme [facility] MAGNESIUM (test code = 2226) 2.0 MG/DL FOLIC [id number] 00:00:00* Test Item Value Reference Range Interpretation Comme [facility] FOLIC ACID (test code = 2695) 7.2 UG/L RUBEOLA IgG [id number] 00:00:00* Test Item Value Reference Range Interpretation Comme [facility] RUBEOLA IgG ANTIBODY (test c ode = 04896) >260.0 AU/ML HEPATITIS B SURFACE [id number] 00:00:00* Test Item Value Reference Range Interpretation Comme [facility] HEPATITIS B SURFACE AB (test code = 2737) NON-REACTIVE VARICELLA ZOSTER [id number] 00:00:00* Test Item Value Reference Range Interpretation Comme [facility] VARICELLA ZOSTER IgG (test c ode = 51616) 1152 INDEX MUMPS VIRUS [id number] 00:00:00* Test Item Value Reference Range Interpretation Comme [facility] MUMPS VIRUS IgG (test code = 4585) 56.8 AU/ML RUBELLA ANTIBODY [id number] 00:00:00* Test Item Value Reference Range Interpretation Comme [facility] RUBELLA ANTIBODY SCREEN (kayden t code = 4600) >500 IU/ML RUBELLA IgG INTERP (test cod e = 79468) REACTIVE CBC W/AUTO [id number] 00:00:00* Test Item Value Reference Range Interpretation Comme nts WBC (test code = 1001) 6.6 K/UL RBC (test code = 1002) 4.70 M/UL HEMOGLOBIN (test code = 1003) 13.8 G/DL HEMATOCRIT (test code = 1004) 40.3 % MCV (test code = 1005) 85.7 fL MCH (test code = 1006) 29.4 PG MCHC (test code = 1007) 34.2 G/DL RDW (test code = 1038) 11.6 % NEUTROPHILS (test code = 1008) 50.3 % LYMPHOCYTES (test code = 1010) 41.4 % MONOCYTES (test code = 1011) 7.0 % EOSINOPHILS (test code = 1012) 0.3 % BASOPHILS (test code = 1013) 0.8 % IMMATURE GRANULOCYTES (test code = 1036) 0.2 % NUCLEATED RBCS (test code = 1065) 0.0 /100WBC'S PLATELET COUNT (test code = 1015) 363 K/UL ABSOLUTE NEUTROPHILS (test c ode = 1066) 3.30 K/UL ABSOLUTE LYMPHOCYTES (test c ode = 1067) 2.71 K/UL ABSOLUTE MONOCYTES (test cod e = 1068) 0.46 K/UL ABSOLUTE EOSINOPHILS (test c ode = 1040) 0.02 K/UL ABSOLUTE BASOPHILS (test cod e = 1069) 0.05 K/UL ABS IMMATURE GRANULOCYTES (t est code = 1020) 0.01 K/UL ABS NUCLEATED RBCS (test cod e = 77212) 0.00 K/UL LIPID [id number] 00:00:00* Test Item Value Reference Range Interpretation Comme nts CHOLESTEROL (test code = 2210) 152 MG/DL TRIGLYCERIDES (test code = 2232) 99 MG/DL HDL CHOLESTEROL (test code = 2220) 50 MG/DL CALC LDL CHOL (test code = 2237) 83 MG/DL RISK RATIO LDL/HDL (test cod e = 2238) 1.66 RATIO HEMOGLOBIN [id number] 00:00:00* Test Item Value Reference Range Interpretation Comme nts HEMOGLOBIN A1c (test code = 82550) 5.3 % COMPREHENSIVE METABOLIC [id number] 00:00:00* Test Item Value Reference Range Interpretation Comme nts GLUCOSE (test code = 2217) 96 MG/DL BUN (test code = 2208) 9 MG/DL CREATININE (test code = 2214) 0.81 MG/DL eGFR (2020 CKD-EPI) (test co de = 07187) 97 ML/MIN/1.73 CALC BUN/CREAT (test code = 223) 11 RATIO SODIUM (test code = 223) 140 MEQ/L POTASSIUM (test code = 2228) 4.2 MEQ/L CHLORIDE (test code = 2215) 102 MEQ/L CARBON DIOXIDE (test code = 2206) 25 MEQ/L CALCIUM (test code = 2208) 9.3 MG/DL PROTEIN, TOTAL (test code = 2228) 6.9 G/DL ALBUMIN (test code = 220) 4.6 G/DL CALC GLOBULIN (test code = 2240) 2.3 G/DL CALC A/G RATIO (test code = 2234) 2.0 RATIO BILIRUBIN, TOTAL (test code = 2206) 0.4 MG/DL ALKALINE PHOSPHATASE (test code = 2203) 69 U/L AST (test code = 2217) 14 U/L ALT (test code = 2218) 17 U/L VITAMIN [id number] 00:00:00* Test Item Value Reference Range Interpretation Comme [facility] VITAMIN B-12 (test code = 2840) 402 PG/ML VITAMIN D, 25 [id number] 00:00:00* Test Item Value Reference Range Interpretation Comme [facility] VITAMIN D, 25 OH (test code = 4958) 22 NG/ML IRON BINDING CAPACITY AND IRON AND % [id number] 00:00:00* Test Item Value Reference Range Interpretation Comme nts IRON, SERUM (test code = 222) 93 UG/DL UNSATURATED IBC (test code = 13815) 229 UG/DL CALC TOTAL IBC (test code = 2076) 322 UG/DL CALC % IRON SAT (test code = 2078) 29 % ZINC, SERUM/[id number] 00:00:00* Test Item Value Reference Range Interpretation Comme [facility] ZINC, SERUM/PLASMA (test cod e = 4261) 82 MCG/DL [id number] 00:00:00* Test Item Value Reference Range Interpretation Comme nts MAGNESIUM (test code = 2225) 2.0 MG/DL FOLIC [id number] 00:00:00* Test Item Value Reference Range Interpretation Comme nts FOLIC ACID (test code = 2695) 7.2 UG/L RUBEOLA IgG [id number] 00:00:00* Test Item Value Reference Range Interpretation Comme nts RUBEOLA IgG ANTIBODY (test c ode = 33766) >260.0 AU/ML HEPATITIS B SURFACE [id number] 00:00:00* Test Item Value Reference Range Interpretation Comme nts HEPATITIS B SURFACE AB (test code = 2737) NON-REACTIVE VARICELLA ZOSTER [id number] 00:00:00* Test Item Value Reference Range Interpretation Comme nts VARICELLA ZOSTER IgG (test c ode = 12052) 1152 INDEX MUMPS VIRUS [id number] 00:00:00* Test Item Value Reference Range Interpretation Comme nts MUMPS VIRUS IgG (test code = 4585) 56.8 AU/ML RUBELLA ANTIBODY [id number] 00:00:00* Test Item Value Reference Range Interpretation Comme nts RUBELLA ANTIBODY SCREEN (kayden t code = 4600) >500 IU/ML RUBELLA IgG INTERP (test cod e = 47944) REACTIVE CBC W/AUTO [id number] 00:00:00* Test Item Value Reference Range Interpretation Comme nts WBC (test code = 1001) 6.6 K/UL RBC (test code = 1002) 4.70 M/UL HEMOGLOBIN (test code = 1003) 13.8 G/DL HEMATOCRIT (test code = 1004) 40.3 % MCV (test code = 1005) 85.7 fL MCH (test code = 1006) 29.4 PG MCHC (test code = 1007) 34.2 G/DL RDW (test code = 1038) 11.6 % NEUTROPHILS (test code = 1008) 50.3 % LYMPHOCYTES (test code = 1010) 41.4 % MONOCYTES (test code = 1011) 7.0 % EOSINOPHILS (test code = 1012) 0.3 % BASOPHILS (test code = 1013) 0.8 % IMMATURE GRANULOCYTES (test code = 1036) 0.2 % NUCLEATED RBCS (test code = 1065) 0.0 /100WBC'S PLATELET COUNT (test code = 1015) 363 K/UL ABSOLUTE NEUTROPHILS (test c ode = 1066) 3.30 K/UL ABSOLUTE LYMPHOCYTES (test c ode = 1067) 2.71 K/UL ABSOLUTE MONOCYTES (test cod e = 1068) 0.46 K/UL ABSOLUTE EOSINOPHILS (test c ode = 1040) 0.02 K/UL ABSOLUTE BASOPHILS (test cod e = 1069) 0.05 K/UL ABS IMMATURE GRANULOCYTES (t est code = 1020) 0.01 K/UL ABS NUCLEATED RBCS (test cod e = 98923) 0.00 K/UL LIPID [id number] 00:00:00* Test Item Value Reference Range Interpretation Comme nts CHOLESTEROL (test code = 2210) 152 MG/DL TRIGLYCERIDES (test code = 2232) 99 MG/DL HDL CHOLESTEROL (test code = 2220) 50 MG/DL CALC LDL CHOL (test code = 2237) 83 MG/DL RISK RATIO LDL/HDL (test cod e = 2238) 1.66 RATIO HEMOGLOBIN [id number] 00:00:00* Test Item Value Reference Range Interpretation Comme nts HEMOGLOBIN A1c (test code = 34782) 5.3 % COMPREHENSIVE METABOLIC [id number] 00:00:00* Test Item Value Reference Range Interpretation Comme nts GLUCOSE (test code = 2217) 96 MG/DL BUN (test code = 2208) 9 MG/DL CREATININE (test code = 2214) 0.81 MG/DL eGFR (2020 CKD-EPI) (test co de = 21893) 97 ML/MIN/1.73 CALC BUN/CREAT (test code = 2235) 11 RATIO SODIUM (test code = 2231) 140 MEQ/L POTASSIUM (test code = 2228) 4.2 MEQ/L CHLORIDE (test code = 2215) 102 MEQ/L CARBON DIOXIDE (test code = 2206) 25 MEQ/L CALCIUM (test code = 2209) 9.3 MG/DL PROTEIN, TOTAL (test code = 2229) 6.9 G/DL ALBUMIN (test code = 2201) 4.6 G/DL CALC GLOBULIN (test code = 2240) 2.3 G/DL CALC A/G RATIO (test code = 2234) 2.0 RATIO BILIRUBIN, TOTAL (test code = 2207) 0.4 MG/DL ALKALINE PHOSPHATASE (test code = 2204) 69 U/L AST (test code = 2218) 14 U/L ALT (test code = 2219) 17 U/L VITAMIN [id number] 00:00:00* Test Item Value Reference Range Interpretation Comme nts VITAMIN B-12 (test code = 2840) 402 PG/ML VITAMIN D, 25 [id number] 00:00:00* Test Item Value Reference Range Interpretation Comme nts VITAMIN D, 25 OH (test code = 4958) 22 NG/ML IRON BINDING CAPACITY AND IRON AND % [id number] 00:00:00* Test Item Value Reference Range Interpretation Comme nts IRON, SERUM (test code = 2222) 93 UG/DL UNSATURATED IBC (test code = 19255) 229 UG/DL CALC TOTAL IBC (test code = 2077) 322 UG/DL CALC % IRON SAT (test code = 2079) 29 % ZINC, SERUM/[id number] 00:00:00* Test Item Value Reference Range Interpretation Comme nts ZINC, SERUM/PLASMA (test cod e = 4261) 82 MCG/DL [id number] 00:00:00* Test Item Value Reference Range Interpretation Comme nts MAGNESIUM (test code = 2226) 2.0 MG/DL FOLIC [id number] 00:00:00* Test Item Value Reference Range Interpretation Comme nts FOLIC ACID (test code = 2695) 7.2 UG/L RUBEOLA IgG [id number] 00:00:00* Test Item Value Reference Range Interpretation Comme nts RUBEOLA IgG ANTIBODY (test c ode = 03221) >260.0 AU/ML HEPATITIS B SURFACE [id number] 00:00:00* Test Item Value Reference Range Interpretation Comme [facility] HEPATITIS B SURFACE AB (test code = 2737) NON-REACTIVE VARICELLA ZOSTER [id number] 00:00:00* Test Item Value Reference Range Interpretation Comme [facility] VARICELLA ZOSTER IgG (test c ode = 37952) 1152 INDEX MUMPS VIRUS [id number] 00:00:00* Test Item Value Reference Range Interpretation Comme nts MUMPS VIRUS IgG (test code = 4585) 56.8 AU/ML RUBELLA ANTIBODY [id number] 00:00:00* Test Item Value Reference Range Interpretation Comme nts RUBELLA ANTIBODY SCREEN (kayden t code = 4600) >500 IU/ML RUBELLA IgG INTERP (test cod e = 71858) REACTIVE CBC W/AUTO [id number] 00:00:00* Test Item Value Reference Range Interpretation Comme nts WBC (test code = 1001) 6.6 K/UL RBC (test code = 1002) 4.70 M/UL HEMOGLOBIN (test code = 1003) 13.8 G/DL HEMATOCRIT (test code = 1004) 40.3 % MCV (test code = 1005) 85.7 fL MCH (test code = 1006) 29.4 PG MCHC (test code = 1007) 34.2 G/DL RDW (test code = 1038) 11.6 % NEUTROPHILS (test code = 1008) 50.3 % LYMPHOCYTES (test code = 1010) 41.4 % MONOCYTES (test code = 1011) 7.0 % EOSINOPHILS (test code = 1012) 0.3 % BASOPHILS (test code = 1013) 0.8 % IMMATURE GRANULOCYTES (test code = 1036) 0.2 % NUCLEATED RBCS (test code = 1065) 0.0 /100WBC'S PLATELET COUNT (test code = 1015) 363 K/UL ABSOLUTE NEUTROPHILS (test c ode = 1066) 3.30 K/UL ABSOLUTE LYMPHOCYTES (test c ode = 1067) 2.71 K/UL ABSOLUTE MONOCYTES (test cod e = 1068) 0.46 K/UL ABSOLUTE EOSINOPHILS (test c ode = 1040) 0.02 K/UL ABSOLUTE BASOPHILS (test cod e = 1069) 0.05 K/UL ABS IMMATURE GRANULOCYTES (t est code = 1020) 0.01 K/UL ABS NUCLEATED RBCS (test cod e = 79396) 0.00 K/UL LIPID [id number] 00:00:00* Test Item Value Reference Range Interpretation Comme nts CHOLESTEROL (test code = 2210) 152 MG/DL TRIGLYCERIDES (test code = 2232) 99 MG/DL HDL CHOLESTEROL (test code = 2220) 50 MG/DL CALC LDL CHOL (test code = 2237) 83 MG/DL RISK RATIO LDL/HDL (test cod e = 2238) 1.66 RATIO HEMOGLOBIN [id number] 00:00:00* Test Item Value Reference Range Interpretation Comme nts HEMOGLOBIN A1c (test code = 69640) 5.3 % COMPREHENSIVE METABOLIC [id number] 00:00:00* Test Item Value Reference Range Interpretation Comme nts GLUCOSE (test code = 2217) 96 MG/DL BUN (test code = 2208) 9 MG/DL CREATININE (test code = 2214) 0.81 MG/DL eGFR (2020 CKD-EPI) (test co de = 88324) 97 ML/MIN/1.73 CALC BUN/CREAT (test code = 2235) 11 RATIO SODIUM (test code = 223) 140 MEQ/L POTASSIUM (test code = 2228) 4.2 MEQ/L CHLORIDE (test code = 2215) 102 MEQ/L CARBON DIOXIDE (test code = 220) 25 MEQ/L CALCIUM (test code = 2209) 9.3 MG/DL PROTEIN, TOTAL (test code = 222) 6.9 G/DL ALBUMIN (test code = 220) 4.6 G/DL CALC GLOBULIN (test code = 2240) 2.3 G/DL CALC A/G RATIO (test code = 2234) 2.0 RATIO BILIRUBIN, TOTAL (test code = 2206) 0.4 MG/DL ALKALINE PHOSPHATASE (test code = 2203) 69 U/L AST (test code = 2217) 14 U/L ALT (test code = 2218) 17 U/L VITAMIN [id number] 00:00:00* Test Item Value Reference Range Interpretation Comme [facility] VITAMIN B-12 (test code = 2840) 402 PG/ML VITAMIN D, 25 [id number] 00:00:00* Test Item Value Reference Range Interpretation Comme [facility] VITAMIN D, 25 OH (test code = 4958) 22 NG/ML IRON BINDING CAPACITY AND IRON AND % [id number] 00:00:00* Test Item Value Reference Range Interpretation Comme [facility] IRON, SERUM (test code = 2221) 93 UG/DL UNSATURATED IBC (test code = 66775) 229 UG/DL CALC TOTAL IBC (test code = 2076) 322 UG/DL CALC % IRON SAT (test code = 2078) 29 % ZINC, SERUM/[id number] 00:00:00* Test Item Value Reference Range Interpretation Comme [facility] ZINC, SERUM/PLASMA (test cod e = 4261) 82 MCG/DL [id number] 00:00:00* Test Item Value Reference Range Interpretation Comme nts MAGNESIUM (test code = 2225) 2.0 MG/DL FOLIC [id number] 00:00:00* Test Item Value Reference Range Interpretation Comme nts FOLIC ACID (test code = 2695) 7.2 UG/L MUMPS IgG AND [id number] 02:05:57* Test Item Value Reference Range Interpretation Comme nts MUMPS VIRUS IgG (test code = 42856) 20.8 AU/mL INTERPRETIVE INF ORMATION: Mumps Ab, IgG by MARYLIN 8.9 AU/mL or less .... Negative - No significant level of detectable IgG mumps virus antibody 9.0-10.9 AU/mL ....... Equivocal - Repeat testing in 10-14 days may be helpful 11.0 AU/mL or greater: Positive - IgG antibody to mumps virus detected, which may indicate a current or past exposure/ immunization to mumps virus. The best evidence for current infection is a significant change on two appropriately timed specimens, where both tests are done in the same laboratory at the same time. TESTING PERFORMED AT [facility], [address] [address] [place] [id number] CLIA NO. [id number] MUMPS VIRUS IgM (test code = 4587) 0.33 IV See_Comment INTERPRETIVE INFORMATION: Mumps Virus Antibody, IgM 0.79 IV or less: Negative - No significant level of detectable IgM antibody to mumps virus. 0.80 - 1.20 IV: Equivocal - Borderline levels of IgM antibody to mumps virus. Repeat testing in 10-14 days may be helpful. 1.21 IV or greater: Positive - Presence of IgM antibody to mumps virus detected, which may indicate a current or recent infection. However, low levels of IgM antibody may occasionally persist for more than 12 months post-infection or immunization. TESTING PERFORMED AT [facility], [facility] [address] [place], [place] [address] [place] [id number] CLIA NO. [id number] [Automated message] The system which generated this result transmitted reference range: <=0.79. The reference range was not used to interpret this result as normal/abnormal. MUMPS IgG AND [id number] 00:00:00* Test Item Value Reference Range Interpretation Comme [facility] MUMPS VIRUS IgG (test code = 74938) 20.8 AU/mL MUMPS VIRUS IgM (test code = 4587) 0.33 IV MUMPS IgG AND [id number] 00:00:00* Test Item Value Reference Range Interpretation Comme nts MUMPS VIRUS IgG (test code = 05036) 20.8 AU/mL MUMPS VIRUS IgM (test code = 4587) 0.33 IV MUMPS IgG AND [id number] 00:00:00* Test Item Value Reference Range Interpretation Comme nts MUMPS VIRUS IgG (test code = 55338) 20.8 AU/mL MUMPS VIRUS IgM (test code = 4587) 0.33 IV MUMPS IgG AND [id number] 00:00:00* Test Item Value Reference Range Interpretation Comme nts MUMPS VIRUS IgG (test code = 33440) 20.8 AU/mL MUMPS VIRUS IgM (test code = 4587) 0.33 IV MUMPS IgG AND [id number] 00:00:00* Test Item Value Reference Range Interpretation Comme nts MUMPS VIRUS IgG (test code = 25396) 20.8 AU/mL MUMPS VIRUS IgM (test code = 4587) 0.33 IV MUMPS IgG AND [id number] 00:00:00* Test Item Value Reference Range Interpretation Comme nts MUMPS VIRUS IgG (test code = 67050) 20.8 AU/mL MUMPS VIRUS IgM (test code = 4587) 0.33 IV MUMPS IgG AND [id number] 00:00:00* Test Item Value Reference Range Interpretation Comme nts MUMPS VIRUS IgG (test code = 40001) 20.8 AU/mL MUMPS VIRUS IgM (test code = 4587) 0.33 IV MUMPS IgG AND [id number] 00:00:00* Test Item Value Reference Range Interpretation Comme nts MUMPS VIRUS IgG (test code = 25924) 20.8 AU/mL MUMPS VIRUS IgM (test code = 4587) 0.33 IV MUMPS IgG AND [id number] 00:00:00* Test Item Value Reference Range Interpretation Comme nts MUMPS VIRUS IgG (test code = 90545) 20.8 AU/mL MUMPS VIRUS IgM (test code = 4587) 0.33 IV MUMPS IgG AND [id number] 00:00:00* Test Item Value Reference Range Interpretation Comme nts MUMPS VIRUS IgG (test code = 21151) 20.8 AU/mL MUMPS VIRUS IgM (test code = 4587) 0.33 IV MUMPS IgG AND [id number] 00:00:00* Test Item Value Reference Range Interpretation Comme [facility] MUMPS VIRUS IgG (test code = 77098) 20.8 AU/mL MUMPS VIRUS IgM (test code = 4587) 0.33 IV RUBEOLA IgG [id number] 17:21:12* Test Item Value Reference Range Interpretation Comme [facility] RUBEOLA IgG ANTIBODY (test code = 57635) 16.4 AU/ML SEE BELOW L RESULTS RECHECKE D AND VERIFIED INTERPRETATION RUBEOLA IgG NEGATIVE . . . . . . . . . . . . AU/ML <13.5 EQUIVOCAL. . . . . . . . . . . . AU/ML 13.5-16.4 NOTE: CONSIDER RETESTING IN A CLINICALLY SUITABLE PERIOD OF TIME, NO SOONER THAN 1-2 WEEKS. POSITIVE . . . . . . . . . . . . AU/ML >=16.5 VARICELLA ZOSTER [id number] 17:21:12* Test Item Value Reference Range Interpretation Comme [facility] VARICELLA ZOSTER IgG (test code = 56559) 1090 INDEX SEE BELOW INTERPRETATION V ZV IgG NEGATIVE . . . . . . . . . . . . INDEX <135 EQUIVOCAL. . . . . . . . . . . . INDEX 135-164 NOTE: CONSIDER RETESTING IN A CLINICALLY SUITABLE PERIOD OF TIME, NO SOONER THAN 1-2 WEEKS. POSITIVE . . . . . . . . . . . . INDEX >=165 UNLESS OTHERWISE INDICATED, ALL TESTING PERFORMED [facility] [address] [place] [id number] IT SPECIALIST: MARYJANE CLEMENTS M.D. CLIA NUMBER [id number] [facility] [id number] RUBELLA ANTIBODY [id number] 04:32:47* Test Item Value Reference Range Interpretation Comme [facility] RUBELLA ANTIBODY SCREEN (test code = 4600) 199 IU/ML SEE BELOW INTERPRETATION R UBELLA IgG NON-REACTIVE/NON-IMMUNE . . . . . . . IU/ML <10 REACTIVE/IMMUNE . . . . . . . . . . . IU/ML >=10 RUBELLA IgG INTERP (test code = 72186) REACTIVE REACTIVE HEPATITIS PANEL, [id number] 03:27:52* Test Item Value Reference Range Interpretation Comme nts HEPATITIS A TOTAL AB (test code = 2725) NON-REACTIVE NON-REACTIVE HEPATITIS B SURF AG (test code = 2739) NON-REACTIVE NON-REACTIVE HEP B CORE TOTAL AB (test code = 2729) NON-REACTIVE NON-REACTIVE HEPATITIS B SURFACE AB (test code = 2737) NON-REACTIVE NON-REACTIVE HEPATITIS C ANTIBODY (test code = 4675) NON-REACTIVE NON-REACTIVE INTERPRETATION HEPATITIS A: (test code = 2552) (NOTE) Hepatitis A sero logy shows no evidence of past exposure to orcurrent infection with hepatitis A virus; patient not immune tohepatitis A. INTERPRETATION HEPATITIS B: (test code = 00115) (NOTE) Hepatitis B sero logy shows no evidence of past exposure to orcurrent infection with hepatitis B virus. No evidence of hepatitis Bimmunization is identified. INTERPRETATION HEPATITIS C: (test code = 90782) (NOTE) Hepatitis C sero logy shows no evidence of exposure to hepatitisC virus at this time. It can take up to 12 months after exposure tothe hepatitis C virus for antibodies to become detectable in the blood in certain patients. VARICELLA ZOSTER [id number] 00:00:00* Test Item Value Reference Range Interpretation Comme [facility] VARICELLA ZOSTER IgG (test c ode = 21379) 1090 INDEX HEPATITIS PROFILE (A,B,C)2021-10-27 00:00:00* Test Item Value Reference Range Interpretation Comme nts HEPATITIS A TOTAL AB (test c ode = 2725) NON-REACTIVE HEPATITIS B SURF AG (test co de = 2739) NON-REACTIVE HEP B CORE TOTAL AB (test co de = 2729) NON-REACTIVE HEPATITIS B SURFACE AB (test code = 2737) NON-REACTIVE HEPATITIS C ANTIBODY (test c ode = 4675) NON-REACTIVE INTERPRETATION HEPATITIS A: (test code = 2552) (NOTE) INTERPRETATION HEPATITIS B: (test code = 20729) (NOTE) INTERPRETATION HEPATITIS C: (test code = 75069) (NOTE) RUBEOLA IgG [id number] 00:00:00* Test Item Value Reference Range Interpretation Comme nts RU[facility] IgG ANTIBODY (test c ode = 82804) 16.4 AU/ML RUBELLA ANTIBODY [id number] 00:00:00* Test Item Value Reference Range Interpretation Comme nts RUBELLA ANTIBODY SCREEN (kayden t code = 4600) 199 IU/ML RUBELLA IgG INTERP (test cod e = 70517) REACTIVE VARICELLA ZOSTER [id number] 00:00:00* Test Item Value Reference Range Interpretation Comme nts VARICELLA ZOSTER IgG (test c ode = 53616) 1090 INDEX HEPATITIS PROFILE (A,B,C)2021-10-27 00:00:00* Test Item Value Reference Range Interpretation Comme nts HEPATITIS A TOTAL AB (test c ode = 2725) NON-REACTIVE HEPATITIS B SURF AG (test co de = 2739) NON-REACTIVE HEP B CORE TOTAL AB (test co de = 2729) NON-REACTIVE HEPATITIS B SURFACE AB (test code = 2737) NON-REACTIVE HEPATITIS C ANTIBODY (test c ode = 4675) NON-REACTIVE INTERPRETATION HEPATITIS A: (test code = 2552) (NOTE) INTERPRETATION HEPATITIS B: (test code = 18291) (NOTE) INTERPRETATION HEPATITIS C: (test code = 67654) (NOTE) RUBEOLA IgG [id number] 00:00:00* Test Item Value Reference Range Interpretation Comme nts RU[facility]A IgG ANTIBODY (test c ode = 43899) 16.4 AU/ML RUBELLA ANTIBODY [id number] 00:00:00* Test Item Value Reference Range Interpretation Comme nts RUBELLA ANTIBODY SCREEN (kayden t code = 4600) 199 IU/ML RUBELLA IgG INTERP (test cod e = 35923) REACTIVE VARICELLA ZOSTER [id number] 00:00:00* Test Item Value Reference Range Interpretation Comme nts VARICELLA ZOSTER IgG (test c ode = 61967) 1090 INDEX HEPATITIS PROFILE (A,B,C)2021-10-27 00:00:00* Test Item Value Reference Range Interpretation Comme nts HEPATITIS A TOTAL AB (test c ode = 2725) NON-REACTIVE HEPATITIS B SURF AG (test co de = 2739) NON-REACTIVE HEP B CORE TOTAL AB (test co de = 2729) NON-REACTIVE HEPATITIS B SURFACE AB (test code = 2737) NON-REACTIVE HEPATITIS C ANTIBODY (test c ode = 4675) NON-REACTIVE INTERPRETATION HEPATITIS A: (test code = 2552) (NOTE) INTERPRETATION HEPATITIS B: (test code = 29897) (NOTE) INTERPRETATION HEPATITIS C: (test code = 28076) (NOTE) RUBEOLA IgG [id number] 00:00:00* Test Item Value Reference Range Interpretation Comme nts RU[facility]A IgG ANTIBODY (test c ode = 91110) 16.4 AU/ML RUBELLA ANTIBODY [id number] 00:00:00* Test Item Value Reference Range Interpretation Comme nts RUBELLA ANTIBODY SCREEN (kayden t code = 4600) 199 IU/ML RUBELLA IgG INTERP (test cod e = 70953) REACTIVE VARICELLA ZOSTER [id number] 00:00:00* Test Item Value Reference Range Interpretation Comme nts VARICELLA ZOSTER IgG (test c ode = 76078) 1090 INDEX HEPATITIS PROFILE (A,B,C)2021-10-27 00:00:00* Test Item Value Reference Range Interpretation Comme nts HEPATITIS A TOTAL AB (test c ode = 2725) NON-REACTIVE HEPATITIS B SURF AG (test co de = 2739) NON-REACTIVE HEP B CORE TOTAL AB (test co de = 2729) NON-REACTIVE HEPATITIS B SURFACE AB (test code = 2737) NON-REACTIVE HEPATITIS C ANTIBODY (test c ode = 4675) NON-REACTIVE INTERPRETATION HEPATITIS A: (test code = 2552) (NOTE) INTERPRETATION HEPATITIS B: (test code = 49360) (NOTE) INTERPRETATION HEPATITIS C: (test code = 06844) (NOTE) RUBEOLA IgG [id number] 00:00:00* Test Item Value Reference Range Interpretation Comme nts RUBEOLA IgG ANTIBODY (test c ode = 37822) 16.4 AU/ML RUBELLA ANTIBODY [id number] 00:00:00* Test Item Value Reference Range Interpretation Comme nts RUBELLA ANTIBODY SCREEN (kayden t code = 4600) 199 IU/ML RUBELLA IgG INTERP (test cod e = 65817) REACTIVE VARICELLA ZOSTER [id number] 00:00:00* Test Item Value Reference Range Interpretation Comme nts VARICELLA ZOSTER IgG (test c ode = 45560) 1090 INDEX HEPATITIS PROFILE (A,B,C)2021-10-27 00:00:00* Test Item Value Reference Range Interpretation Comme nts HEPATITIS A TOTAL AB (test c ode = 2725) NON-REACTIVE HEPATITIS B SURF AG (test co de = 2739) NON-REACTIVE HEP B CORE TOTAL AB (test co de = 2729) NON-REACTIVE HEPATITIS B SURFACE AB (test code = 2737) NON-REACTIVE HEPATITIS C ANTIBODY (test c ode = 4675) NON-REACTIVE INTERPRETATION HEPATITIS A: (test code = 2552) (NOTE) INTERPRETATION HEPATITIS B: (test code = 12346) (NOTE) INTERPRETATION HEPATITIS C: (test code = 33989) (NOTE) RUBEOLA IgG [id number] 00:00:00* Test Item Value Reference Range Interpretation Comme nts [facility] IgG ANTIBODY (test c ode = 33898) 16.4 AU/ML RUBELLA ANTIBODY [id number] 00:00:00* Test Item Value Reference Range Interpretation Comme nts RUBELLA ANTIBODY SCREEN (kayden t code = 4600) 199 IU/ML RUBELLA IgG INTERP (test cod e = 81867) REACTIVE VARICELLA ZOSTER [id number] 00:00:00* Test Item Value Reference Range Interpretation Comme nts VARICELLA ZOSTER IgG (test c ode = 27567) 1090 INDEX HEPATITIS PROFILE (A,B,C)2021-10-27 00:00:00* Test Item Value Reference Range Interpretation Comme nts HEPATITIS A TOTAL AB (test c ode = 2725) NON-REACTIVE HEPATITIS B SURF AG (test co de = 2739) NON-REACTIVE HEP B CORE TOTAL AB (test co de = 2729) NON-REACTIVE HEPATITIS B SURFACE AB (test code = 2737) NON-REACTIVE HEPATITIS C ANTIBODY (test c ode = 4675) NON-REACTIVE INTERPRETATION HEPATITIS A: (test code = 2552) (NOTE) INTERPRETATION HEPATITIS B: (test code = 28895) (NOTE) INTERPRETATION HEPATITIS C: (test code = 28950) (NOTE) RUBEOLA IgG [id number] 00:00:00* Test Item Value Reference Range Interpretation Comme nts [facility] IgG ANTIBODY (test c ode = 45871) 16.4 AU/ML RUBELLA ANTIBODY [id number] 00:00:00* Test Item Value Reference Range Interpretation Comme nts RUBELLA ANTIBODY SCREEN (kayden t code = 4600) 199 IU/ML RUBELLA IgG INTERP (test cod e = 10760) REACTIVE VARICELLA ZOSTER [id number] 00:00:00* Test Item Value Reference Range Interpretation Comme nts VARICELLA ZOSTER IgG (test c ode = 52279) 1090 INDEX HEPATITIS PROFILE (A,B,C)2021-10-27 00:00:00* Test Item Value Reference Range Interpretation Comme nts HEPATITIS A TOTAL AB (test c ode = 2725) NON-REACTIVE HEPATITIS B SURF AG (test co de = 2739) NON-REACTIVE HEP B CORE TOTAL AB (test co de = 2729) NON-REACTIVE HEPATITIS B SURFACE AB (test code = 2737) NON-REACTIVE HEPATITIS C ANTIBODY (test c ode = 4675) NON-REACTIVE INTERPRETATION HEPATITIS A: (test code = 2552) (NOTE) INTERPRETATION HEPATITIS B: (test code = 12343) (NOTE) INTERPRETATION HEPATITIS C: (test code = 62691) (NOTE) RUBEOLA IgG [id number] 00:00:00* Test Item Value Reference Range Interpretation Comme nts [facility] IgG ANTIBODY (test c ode = 42559) 16.4 AU/ML RUBELLA ANTIBODY [id number] 00:00:00* Test Item Value Reference Range Interpretation Comme nts RUBELLA ANTIBODY SCREEN (kayden t code = 4600) 199 IU/ML RUBELLA IgG INTERP (test cod e = 74573) REACTIVE VARICELLA ZOSTER [id number] 00:00:00* Test Item Value Reference Range Interpretation Comme nts VARICELLA ZOSTER IgG (test c ode = 16402) 1090 INDEX HEPATITIS PROFILE (A,B,C)2021-10-27 00:00:00* Test Item Value Reference Range Interpretation Comme nts HEPATITIS A TOTAL AB (test c ode = 2725) NON-REACTIVE HEPATITIS B SURF AG (test co de = 2739) NON-REACTIVE HEP B CORE TOTAL AB (test co de = 2729) NON-REACTIVE HEPATITIS B SURFACE AB (test code = 2737) NON-REACTIVE HEPATITIS C ANTIBODY (test c ode = 4675) NON-REACTIVE INTERPRETATION HEPATITIS A: (test code = 2552) (NOTE) INTERPRETATION HEPATITIS B: (test code = 02492) (NOTE) INTERPRETATION HEPATITIS C: (test code = 17316) (NOTE) RUBEOLA IgG [id number] 00:00:00* Test Item Value Reference Range Interpretation Comme nts RUBEOLA IgG ANTIBODY (test c ode = 90376) 16.4 AU/ML RUBELLA ANTIBODY [id number] 00:00:00* Test Item Value Reference Range Interpretation Comme nts RUBELLA ANTIBODY SCREEN (kayden t code = 4600) 199 IU/ML RUBELLA IgG INTERP (test cod e = 85937) REACTIVE VARICELLA ZOSTER [id number] 00:00:00* Test Item Value Reference Range Interpretation Comme nts VARICELLA ZOSTER IgG (test c ode = 92854) 1090 INDEX HEPATITIS PROFILE (A,B,C)2021-10-27 00:00:00* Test Item Value Reference Range Interpretation Comme nts HEPATITIS A TOTAL AB (test c ode = 2725) NON-REACTIVE HEPATITIS B SURF AG (test co de = 2739) NON-REACTIVE HEP B CORE TOTAL AB (test co de = 2729) NON-REACTIVE HEPATITIS B SURFACE AB (test code = 2737) NON-REACTIVE HEPATITIS C ANTIBODY (test c ode = 4675) NON-REACTIVE INTERPRETATION HEPATITIS A: (test code = 2552) (NOTE) INTERPRETATION HEPATITIS B: (test code = 55659) (NOTE) INTERPRETATION HEPATITIS C: (test code = 89289) (NOTE) RUBEOLA IgG [id number] 00:00:00* Test Item Value Reference Range Interpretation Comme nts RU[facility]A IgG ANTIBODY (test c ode = 69205) 16.4 AU/ML RUBELLA ANTIBODY [id number] 00:00:00* Test Item Value Reference Range Interpretation Comme nts RUBELLA ANTIBODY SCREEN (kayden t code = 4600) 199 IU/ML RUBELLA IgG INTERP (test cod e = 97503) REACTIVE VARICELLA ZOSTER [id number] 00:00:00* Test Item Value Reference Range Interpretation Comme nts VARICELLA ZOSTER IgG (test c ode = 95266) 1090 INDEX HEPATITIS PROFILE (A,B,C)2021-10-27 00:00:00* Test Item Value Reference Range Interpretation Comme nts HEPATITIS A TOTAL AB (test c ode = 2725) NON-REACTIVE HEPATITIS B SURF AG (test co de = 2739) NON-REACTIVE HEP B CORE TOTAL AB (test co de = 2729) NON-REACTIVE HEPATITIS B SURFACE AB (test code = 2737) NON-REACTIVE HEPATITIS C ANTIBODY (test c ode = 4675) NON-REACTIVE INTERPRETATION HEPATITIS A: (test code = 2552) (NOTE) INTERPRETATION HEPATITIS B: (test code = 83877) (NOTE) INTERPRETATION HEPATITIS C: (test code = 73125) (NOTE) RUBEOLA IgG [id number] 00:00:00* Test Item Value Reference Range Interpretation Comme nts RUBEOLA IgG ANTIBODY (test c ode = 73330) 16.4 AU/ML HEPATITIS PROFILE (A,B,C)2021-10-27 00:00:00* Test Item Value Reference Range Interpretation Comme nts HEPATITIS A TOTAL AB (test c ode = 2725) NON-REACTIVE HEPATITIS B SURF AG (test co de = 2739) NON-REACTIVE HEP B CORE TOTAL AB (test co de = 2729) NON-REACTIVE HEPATITIS B SURFACE AB (test code = 2737) NON-REACTIVE HEPATITIS C ANTIBODY (test c ode = 4675) NON-REACTIVE INTERPRETATION HEPATITIS A: (test code = 2552) (NOTE) INTERPRETATION HEPATITIS B: (test code = 38428) (NOTE) INTERPRETATION HEPATITIS C: (test code = 87733) (NOTE) RUBEOLA IgG [id number] 00:00:00* Test Item Value Reference Range Interpretation Comme nts RUBEOLA IgG ANTIBODY (test c ode = 79758) 16.4 AU/ML RUBELLA ANTIBODY [id number] 00:00:00* Test Item Value Reference Range Interpretation Comme nts RUBELLA ANTIBODY SCREEN (kayden t code = 4600) 199 IU/ML RUBELLA IgG INTERP (test cod e = 35118) REACTIVE VARICELLA ZOSTER [id number] 00:00:00* Test Item Value Reference Range Interpretation Comme nts VARICELLA ZOSTER IgG (test c ode = 99523) 1090 INDEX RUBELLA ANTIBODY [id number] 00:00:00* Test Item Value Reference Range Interpretation Comme nts RUBELLA ANTIBODY SCREEN (kayden t code = 4600) 199 IU/ML RUBELLA IgG INTERP (test cod e = 03571) REACTIVE [id number] 15:43:45* Test Item Value Reference Range Interpretation Comme nts APPEARANCE (test code = 3486908376) Hazy Clear A COLOR (test code = 9691977649) Yellow Yellow PH (test code = 0415384041) 4.8-8.0 SP GRAVITY (test code = 5687550084) 1.003-1.030 GLU U QUAL (test code = 3706125095) Normal Normal BLOOD (test code = 7167450113) 1+ Negative A KETONES (test code = 6989373065) Negative Negative PROTEIN (test code = 2887-8) Negative Negative UROBILIN (test code = 2535965424) Normal Normal BILIRUBIN (test code = 6228014240) Negative Negative NITRITE (test code = 8449977061) Positive Negative A LEUK BRANDT (test code = 5323957668) 25/uL Negative A RBC/HPF (test code = 3499536554) See_Comment H [Automated messa ge] The system which generated this result transmitted reference range: 0 - 3 HPF. The reference range was not used to interpret this result as normal/abnormal. WBC/HPF (test code = 9069709547) See_Comment H [Automated messa ge] The system which generated this result transmitted reference range: 0 - 5 HPF. The reference range was not used to interpret this result as normal/abnormal. BACTERIA (test code = 7797148381) Moderate Negative A MUCOUS (test code = 8989356562) Slight Negative LPF A SQ EPITH (test code = 1657324446) HPF Lab Interpretation (test code = 08661-9) [facility] [id number] 15:33:52* Test Item Value Reference Range Interpretation Comme nts Streptococcus pyogenes (grou p A) antigen (test code = 20478-3) Negative Negative Lab Interpretation (test cod e = 52098-1) [facility] [id number] 00:00:00* Test Item Value Reference Range Interpretation Comme nts HEMOGLOBIN A1c (test code = 10390) 5.5 % [id number] 00:00:00* Test Item Value Reference Range Interpretation Comme nts TSH, THIRD GENERATION (test code = 2821) 0.904 UIU/ML HIV AB/AG COMBO RFLX [id number] 00:00:00* Test Item Value Reference Range Interpretation Comme nts HIV 1/2 4TH GEN, RFLX CONF ( test code = 3514) NON-REACTIVE ACUTE HEPATITIS [id number] 00:00:00* Test Item Value Reference Range Interpretation Comme nts HEPATITIS A IgM (test code = 41511) NON-REACTIVE HEPATITIS B CORE IgM (test c ode = 4644) NON-REACTIVE HEPATITIS B SURF AG (test co de = 6749) NON-REACTIVE HEPATITIS C ANTIBODY (test c ode = 6612) NON-REACTIVE INTERPRETATION HEPATITIS A: (test code = 2552) (NOTE) INTERPRETATION HEPATITIS B: (test code = 79955) (NOTE) INTERPRETATION HEPATITIS C: (test code = 45056) (NOTE) VAGINAL PATHOGENS DNA [id number] 00:00:00* Test Item Value Reference Range Interpretation Comme nts CHERYL SPECIES (test code = 96961) NEGATIVE G. VAGINALIS (test code = ) POSITIVE T. VAGINALIS (test code = ) NEGATIVE CBC W/AUTO [id number] 00:00:00* Test Item Value Reference Range Interpretation Comme nts WBC (test code = 1001) 6.7 K/UL RBC (test code = 1002) 4.66 M/UL HEMOGLOBIN (test code = 1003) 13.5 G/DL HEMATOCRIT (test code = 1004) 39.0 % MCV (test code = 1005) 83.7 fL MCH (test code = 1006) 29.0 PG MCHC (test code = 1007) 34.6 G/DL RDW (test code = 1038) 12.8 % NEUTROPHILS (test code = 1008) 44.7 % LYMPHOCYTES (test code = 1010) 47.8 % MONOCYTES (test code = 1011) 5.7 % EOSINOPHILS (test code = 1012) 0.9 % BASOPHILS (test code = 1013) 0.9 % PLATELET COUNT (test code = 1015) 385 K/UL CHLAMYDIA, AMPLIFIED, [id number] 00:00:00* Test Item Value Reference Range Interpretation Comme nts CHLAMYDIA, TMA (test code = 74125) NEGATIVE COMPREHENSIVE METABOLIC [id number] 00:00:00* Test Item Value Reference Range Interpretation Comme nts GLUCOSE (test code = 2217) 98 MG/DL BUN (test code = 2208) 13 MG/DL CREATININE (test code = 2214) 0.61 MG/DL eGFR AMER. (test cod e = 41017) 138 ML/MIN/1.73 eGFR NON- AMER. (test code = 22293) 119 ML/MIN/1.73 CALC BUN/CREAT (test code = 2235) 21 RATIO SODIUM (test code = 2231) 139 MEQ/L POTASSIUM (test code = 2228) 4.4 MEQ/L CHLORIDE (test code = 2215) 102 MEQ/L CARBON DIOXIDE (test code = 2206) 26 MEQ/L CALCIUM (test code = 2209) 9.5 MG/DL PROTEIN, TOTAL (test code = 2229) 7.3 G/DL ALBUMIN (test code = 2201) 4.7 G/DL CALC GLOBULIN (test code = 2240) 2.6 G/DL CALC A/G RATIO (test code = 2234) 1.8 RATIO BILIRUBIN, TOTAL (test code = 2207) <0.2 MG/DL ALKALINE PHOSPHATASE (test code = 2204) 60 U/L AST (test code = 2218) 38 U/L ALT (test code = 2219) 50 U/L LIPID [id number] 00:00:00* Test Item Value Reference Range Interpretation Comme nts CHOLESTEROL (test code = 2210) 173 MG/DL TRIGLYCERIDES (test code = 2232) 167 MG/DL HDL CHOLESTEROL (test code = 2220) 46 MG/DL CALC LDL CHOL (test code = 2237) 100 MG/DL RISK RATIO LDL/HDL (test cod e = 2238) 2.17 RATIO HEMOGLOBIN [id number] 00:00:00* Test Item Value Reference Range Interpretation Comme nts HEMOGLOBIN A1c (test code = 33958) 5.5 % [id number] 00:00:00* Test Item Value Reference Range Interpretation Comme nts TSH, THIRD GENERATION (test code = 2821) 0.904 UIU/ML GC, AMPLIFIED, [id number] 00:00:00* Test Item Value Reference Range Interpretation Comme nts GONORRHEA, TMA (test code = 11164) NEGATIVE HIV AB/AG COMBO RFLX [id number] 00:00:00* Test Item Value Reference Range Interpretation Comme nts HIV 1/2 4TH GEN, RFLX CONF ( test code = 3514) NON-REACTIVE ACUTE HEPATITIS [id number] 00:00:00* Test Item Value Reference Range Interpretation Comme nts HEPATITIS A IgM (test code = 80341) NON-REACTIVE HEPATITIS B CORE IgM (test c ode = 1618) NON-REACTIVE HEPATITIS B SURF AG (test co de = 6748) NON-REACTIVE HEPATITIS C ANTIBODY (test c ode = 4675) NON-REACTIVE INTERPRETATION HEPATITIS A: (test code = 2552) (NOTE) INTERPRETATION HEPATITIS B: (test code = 37780) (NOTE) INTERPRETATION HEPATITIS C: (test code = 60253) (NOTE) CHLAMYDIA, AMPLIFIED, [id number] 00:00:00* Test Item Value Reference Range Interpretation Comme nts CHLAMYDIA, TMA (test code = 70097) NEGATIVE GC, AMPLIFIED, [id number] 00:00:00* Test Item Value Reference Range Interpretation Comme nts GONORRHEA, TMA (test code = 84701) NEGATIVE [id number] 00:00:00* Test Item Value Reference Range Interpretation Comme nts RPR RESULT (test code = 3501) NON-REACTIVE RPR TITER (test code = 3500) NOT INDIC. TITER [id number] 00:00:00* Test Item Value Reference Range Interpretation Comme nts RPR RESULT (test code = 3501) NON-REACTIVE RPR TITER (test code = 3500) NOT INDIC. TITER VAGINAL PATHOGENS DNA [id number] 00:00:00* Test Item Value Reference Range Interpretation Comme nts CHERYL SPECIES (test code = 96635) NEGATIVE G. VAGINALIS (test code = 38715) POSITIVE T. VAGINALIS (test code = 73537) NEGATIVE CBC W/AUTO [id number] 00:00:00* Test Item Value Reference Range Interpretation Comme nts WBC (test code = 1001) 6.7 K/UL RBC (test code = 1002) 4.66 M/UL HEMOGLOBIN (test code = 1003) 13.5 G/DL HEMATOCRIT (test code = 1004) 39.0 % MCV (test code = 1005) 83.7 fL MCH (test code = 1006) 29.0 PG MCHC (test code = 1007) 34.6 G/DL RDW (test code = 1038) 12.8 % NEUTROPHILS (test code = 1008) 44.7 % LYMPHOCYTES (test code = 1010) 47.8 % MONOCYTES (test code = 1011) 5.7 % EOSINOPHILS (test code = 1012) 0.9 % BASOPHILS (test code = 1013) 0.9 % PLATELET COUNT (test code = 1015) 385 K/UL COMPREHENSIVE METABOLIC [id number] 00:00:00* Test Item Value Reference Range Interpretation Comme nts GLUCOSE (test code = 2217) 98 MG/DL BUN (test code = 2208) 13 MG/DL CREATININE (test code = 2214) 0.61 MG/DL eGFR AMER. (test cod e = 42926) 138 ML/MIN/1.73 eGFR NON- AMER. (test code = 19734) 119 ML/MIN/1.73 CALC BUN/CREAT (test code = 2235) 21 RATIO SODIUM (test code = 2231) 139 MEQ/L POTASSIUM (test code = 2228) 4.4 MEQ/L CHLORIDE (test code = 2215) 102 MEQ/L CARBON DIOXIDE (test code = 2206) 26 MEQ/L CALCIUM (test code = 2209) 9.5 MG/DL PROTEIN, TOTAL (test code = 2229) 7.3 G/DL ALBUMIN (test code = 2201) 4.7 G/DL CALC GLOBULIN (test code = 2240) 2.6 G/DL CALC A/G RATIO (test code = 2234) 1.8 RATIO BILIRUBIN, TOTAL (test code = 2207) <0.2 MG/DL ALKALINE PHOSPHATASE (test code = 2204) 60 U/L AST (test code = 2218) 38 U/L ALT (test code = 2219) 50 U/L LIPID [id number] 00:00:00* Test Item Value Reference Range Interpretation Comme nts CHOLESTEROL (test code = 2210) 173 MG/DL TRIGLYCERIDES (test code = 2232) 167 MG/DL HDL CHOLESTEROL (test code = 2220) 46 MG/DL CALC LDL CHOL (test code = 2237) 100 MG/DL RISK RATIO LDL/HDL (test cod e = 2238) 2.17 RATIO HEMOGLOBIN [id number] 00:00:00* Test Item Value Reference Range Interpretation Comme [facility] HEMOGLOBIN A1c (test code = 24499) 5.5 % [id number] 00:00:00* Test Item Value Reference Range Interpretation Comme [facility] TSH, THIRD GENERATION (test code = 2821) 0.904 UIU/ML HIV AB/AG COMBO RFLX [id number] 00:00:00* Test Item Value Reference Range Interpretation Comme [facility] HIV 1/2 4TH GEN, RFLX CONF ( test code = 3514) NON-REACTIVE ACUTE HEPATITIS [id number] 00:00:00* Test Item Value Reference Range Interpretation Comme nts HEPATITIS A IgM (test code = 50323) NON-REACTIVE HEPATITIS B CORE IgM (test c ode = 4644) NON-REACTIVE HEPATITIS B SURF AG (test co de = 0159) NON-REACTIVE HEPATITIS C ANTIBODY (test c ode = 4617) NON-REACTIVE INTERPRETATION HEPATITIS A: (test code = 2552) (NOTE) INTERPRETATION HEPATITIS B: (test code = 68383) (NOTE) INTERPRETATION HEPATITIS C: (test code = 62028) (NOTE) CHLAMYDIA, AMPLIFIED, [id number] 00:00:00* Test Item Value Reference Range Interpretation Comme nts CHLAMYDIA, TMA (test code = 32689) NEGATIVE GC, AMPLIFIED, [id number] 00:00:00* Test Item Value Reference Range Interpretation Comme nts GONORRHEA, TMA (test code = 48529) NEGATIVE [id number] 00:00:00* Test Item Value Reference Range Interpretation Comme nts RPR RESULT (test code = 3501) NON-REACTIVE RPR TITER (test code = 3500) NOT INDIC. TITER VAGINAL PATHOGENS DNA [id number] 00:00:00* Test Item Value Reference Range Interpretation Comme nts CHERYL SPECIES (test code = 45423) NEGATIVE G. VAGINALIS (test code = 30819) POSITIVE T. VAGINALIS (test code = 88083) NEGATIVE CBC W/AUTO [id number] 00:00:00* Test Item Value Reference Range Interpretation Comme nts WBC (test code = 1001) 6.7 K/UL RBC (test code = 1002) 4.66 M/UL HEMOGLOBIN (test code = 1003) 13.5 G/DL HEMATOCRIT (test code = 1004) 39.0 % MCV (test code = 1005) 83.7 fL MCH (test code = 1006) 29.0 PG MCHC (test code = 1007) 34.6 G/DL RDW (test code = 1038) 12.8 % NEUTROPHILS (test code = 1008) 44.7 % LYMPHOCYTES (test code = 1010) 47.8 % MONOCYTES (test code = 1011) 5.7 % EOSINOPHILS (test code = 1012) 0.9 % BASOPHILS (test code = 1013) 0.9 % PLATELET COUNT (test code = 1015) 385 K/UL COMPREHENSIVE METABOLIC [id number] 00:00:00* Test Item Value Reference Range Interpretation Comme nts GLUCOSE (test code = 2217) 98 MG/DL BUN (test code = 2208) 13 MG/DL CREATININE (test code = 2214) 0.61 MG/DL eGFR AMER. (test cod e = 10880) 138 ML/MIN/1.73 eGFR NON- AMER. (test code = 46520) 119 ML/MIN/1.73 CALC BUN/CREAT (test code = 2235) 21 RATIO SODIUM (test code = 2231) 139 MEQ/L POTASSIUM (test code = 2228) 4.4 MEQ/L CHLORIDE (test code = 2215) 102 MEQ/L CARBON DIOXIDE (test code = 2206) 26 MEQ/L CALCIUM (test code = 2209) 9.5 MG/DL PROTEIN, TOTAL (test code = 2229) 7.3 G/DL ALBUMIN (test code = 2201) 4.7 G/DL CALC GLOBULIN (test code = 2240) 2.6 G/DL CALC A/G RATIO (test code = 2234) 1.8 RATIO BILIRUBIN, TOTAL (test code = 2207) <0.2 MG/DL ALKALINE PHOSPHATASE (test code = 2204) 60 U/L AST (test code = 2218) 38 U/L ALT (test code = 2219) 50 U/L LIPID [id number] 00:00:00* Test Item Value Reference Range Interpretation Comme nts CHOLESTEROL (test code = 2210) 173 MG/DL TRIGLYCERIDES (test code = 2232) 167 MG/DL HDL CHOLESTEROL (test code = 2220) 46 MG/DL CALC LDL CHOL (test code = 2237) 100 MG/DL RISK RATIO LDL/HDL (test cod e = 2238) 2.17 RATIO HEMOGLOBIN [id number] 00:00:00* Test Item Value Reference Range Interpretation Comme nts HEMOGLOBIN A1c (test code = 18551) 5.5 % [id number] 00:00:00* Test Item Value Reference Range Interpretation Comme nts TSH, THIRD GENERATION (test code = 2821) 0.904 UIU/ML HIV AB/AG COMBO RFLX [id number] 00:00:00* Test Item Value Reference Range Interpretation Comme nts HIV 1/2 4TH GEN, RFLX CONF ( test code = 3514) NON-REACTIVE ACUTE HEPATITIS [id number] 00:00:00* Test Item Value Reference Range Interpretation Comme nts HEPATITIS A IgM (test code = 68611) NON-REACTIVE HEPATITIS B CORE IgM (test c ode = 4644) NON-REACTIVE HEPATITIS B SURF AG (test co de = 2739) NON-REACTIVE HEPATITIS C ANTIBODY (test c ode = 4675) NON-REACTIVE INTERPRETATION HEPATITIS A: (test code = 2552) (NOTE) INTERPRETATION HEPATITIS B: (test code = 08561) (NOTE) INTERPRETATION HEPATITIS C: (test code = 80873) (NOTE) CHLAMYDIA, AMPLIFIED, [id number] 00:00:00* Test Item Value Reference Range Interpretation Comme nts CHLAMYDIA, TMA (test code = 68960) NEGATIVE GC, AMPLIFIED, [id number] 00:00:00* Test Item Value Reference Range Interpretation Comme nts GONORRHEA, TMA (test code = 83092) NEGATIVE [id number] 00:00:00* Test Item Value Reference Range Interpretation Comme nts RPR RESULT (test code = 3501) NON-REACTIVE RPR TITER (test code = 3500) NOT INDIC. TITER VAGINAL PATHOGENS DNA [id number] 00:00:00* Test Item Value Reference Range Interpretation Comme nts CHERYL SPECIES (test code = 04114) NEGATIVE G. VAGINALIS (test code = 10913) POSITIVE T. VAGINALIS (test code = 33087) NEGATIVE CBC W/AUTO [id number] 00:00:00* Test Item Value Reference Range Interpretation Comme nts WBC (test code = 1001) 6.7 K/UL RBC (test code = 1002) 4.66 M/UL HEMOGLOBIN (test code = 1003) 13.5 G/DL HEMATOCRIT (test code = 1004) 39.0 % MCV (test code = 1005) 83.7 fL MCH (test code = 1006) 29.0 PG MCHC (test code = 1007) 34.6 G/DL RDW (test code = 1038) 12.8 % NEUTROPHILS (test code = 1008) 44.7 % LYMPHOCYTES (test code = 1010) 47.8 % MONOCYTES (test code = 1011) 5.7 % EOSINOPHILS (test code = 1012) 0.9 % BASOPHILS (test code = 1013) 0.9 % PLATELET COUNT (test code = 1015) 385 K/UL COMPREHENSIVE METABOLIC [id number] 00:00:00* Test Item Value Reference Range Interpretation Comme nts GLUCOSE (test code = 2217) 98 MG/DL BUN (test code = 2208) 13 MG/DL CREATININE (test code = 2214) 0.61 MG/DL eGFR AMER. (test cod e = 53682) 138 ML/MIN/1.73 eGFR NON- AMER. (test code = 85751) 119 ML/MIN/1.73 CALC BUN/CREAT (test code = 2235) 21 RATIO SODIUM (test code = 2231) 139 MEQ/L POTASSIUM (test code = 2228) 4.4 MEQ/L CHLORIDE (test code = 2215) 102 MEQ/L CARBON DIOXIDE (test code = 2206) 26 MEQ/L CALCIUM (test code = 2209) 9.5 MG/DL PROTEIN, TOTAL (test code = 2229) 7.3 G/DL ALBUMIN (test code = 2201) 4.7 G/DL CALC GLOBULIN (test code = 2240) 2.6 G/DL CALC A/G RATIO (test code = 2234) 1.8 RATIO BILIRUBIN, TOTAL (test code = 2207) <0.2 MG/DL ALKALINE PHOSPHATASE (test code = 2204) 60 U/L AST (test code = 2218) 38 U/L ALT (test code = 2219) 50 U/L LIPID [id number] 00:00:00* Test Item Value Reference Range Interpretation Comme nts CHOLESTEROL (test code = 2210) 173 MG/DL TRIGLYCERIDES (test code = 2232) 167 MG/DL HDL CHOLESTEROL (test code = 2220) 46 MG/DL CALC LDL CHOL (test code = 2237) 100 MG/DL RISK RATIO LDL/HDL (test cod e = 2238) 2.17 RATIO HEMOGLOBIN [id number] 00:00:00* Test Item Value Reference Range Interpretation Comme nts HEMOGLOBIN A1c (test code = 66642) 5.5 % [id number] 00:00:00* Test Item Value Reference Range Interpretation Comme nts TSH, THIRD GENERATION (test code = 2821) 0.904 UIU/ML HIV AB/AG COMBO RFLX [id number] 00:00:00* Test Item Value Reference Range Interpretation Comme nts HIV 1/2 4TH GEN, RFLX CONF ( test code = 3514) NON-REACTIVE ACUTE HEPATITIS [id number] 00:00:00* Test Item Value Reference Range Interpretation Comme nts HEPATITIS A IgM (test code = 25689) NON-REACTIVE HEPATITIS B CORE IgM (test c ode = 4644) NON-REACTIVE HEPATITIS B SURF AG (test co de = 2739) NON-REACTIVE HEPATITIS C ANTIBODY (test c ode = 4675) NON-REACTIVE INTERPRETATION HEPATITIS A: (test code = 2552) (NOTE) INTERPRETATION HEPATITIS B: (test code = 27691) (NOTE) INTERPRETATION HEPATITIS C: (test code = 04789) (NOTE) CHLAMYDIA, AMPLIFIED, [id number] 00:00:00* Test Item Value Reference Range Interpretation Comme nts CHLAMYDIA, TMA (test code = 20777) NEGATIVE GC, AMPLIFIED, [id number] 00:00:00* Test Item Value Reference Range Interpretation Comme nts GONORRHEA, TMA (test code = 83404) NEGATIVE [id number] 00:00:00* Test Item Value Reference Range Interpretation Comme nts RPR RESULT (test code = 3501) NON-REACTIVE RPR TITER (test code = 3500) NOT INDIC. TITER VAGINAL PATHOGENS DNA [id number] 00:00:00* Test Item Value Reference Range Interpretation Comme nts CHERYL SPECIES (test code = 63484) NEGATIVE G. VAGINALIS (test code = 27739) POSITIVE T. VAGINALIS (test code = 88060) NEGATIVE CBC W/AUTO [id number] 00:00:00* Test Item Value Reference Range Interpretation Comme nts WBC (test code = 1001) 6.7 K/UL RBC (test code = 1002) 4.66 M/UL HEMOGLOBIN (test code = 1003) 13.5 G/DL HEMATOCRIT (test code = 1004) 39.0 % MCV (test code = 1005) 83.7 fL MCH (test code = 1006) 29.0 PG MCHC (test code = 1007) 34.6 G/DL RDW (test code = 1038) 12.8 % NEUTROPHILS (test code = 1008) 44.7 % LYMPHOCYTES (test code = 1010) 47.8 % MONOCYTES (test code = 1011) 5.7 % EOSINOPHILS (test code = 1012) 0.9 % BASOPHILS (test code = 1013) 0.9 % PLATELET COUNT (test code = 1015) 385 K/UL COMPREHENSIVE METABOLIC [id number] 00:00:00* Test Item Value Reference Range Interpretation Comme nts GLUCOSE (test code = 2217) 98 MG/DL BUN (test code = 2208) 13 MG/DL CREATININE (test code = 2214) 0.61 MG/DL eGFR AMER. (test cod e = 27642) 138 ML/MIN/1.73 eGFR NON- AMER. (test code = 79851) 119 ML/MIN/1.73 CALC BUN/CREAT (test code = 2235) 21 RATIO SODIUM (test code = 2231) 139 MEQ/L POTASSIUM (test code = 2228) 4.4 MEQ/L CHLORIDE (test code = 2215) 102 MEQ/L CARBON DIOXIDE (test code = 2206) 26 MEQ/L CALCIUM (test code = 2209) 9.5 MG/DL PROTEIN, TOTAL (test code = 2229) 7.3 G/DL ALBUMIN (test code = 2201) 4.7 G/DL CALC GLOBULIN (test code = 2240) 2.6 G/DL CALC A/G RATIO (test code = 2234) 1.8 RATIO BILIRUBIN, TOTAL (test code = 2207) <0.2 MG/DL ALKALINE PHOSPHATASE (test code = 2204) 60 U/L AST (test code = 2218) 38 U/L ALT (test code = 2219) 50 U/L LIPID [id number] 00:00:00* Test Item Value Reference Range Interpretation Comme nts CHOLESTEROL (test code = 2210) 173 MG/DL TRIGLYCERIDES (test code = 2232) 167 MG/DL HDL CHOLESTEROL (test code = 2220) 46 MG/DL CALC LDL CHOL (test code = 2237) 100 MG/DL RISK RATIO LDL/HDL (test cod e = 2238) 2.17 RATIO HEMOGLOBIN [id number] 00:00:00* Test Item Value Reference Range Interpretation Comme nts HEMOGLOBIN A1c (test code = 43627) 5.5 % [id number] 00:00:00* Test Item Value Reference Range Interpretation Comme nts TSH, THIRD GENERATION (test code = 2821) 0.904 UIU/ML HIV AB/AG COMBO RFLX [id number] 00:00:00* Test Item Value Reference Range Interpretation Comme nts HIV 1/2 4TH GEN, RFLX CONF ( test code = 3514) NON-REACTIVE ACUTE HEPATITIS [id number] 00:00:00* Test Item Value Reference Range Interpretation Comme nts HEPATITIS A IgM (test code = 74583) NON-REACTIVE HEPATITIS B CORE IgM (test c ode = 4644) NON-REACTIVE HEPATITIS B SURF AG (test co de = 2739) NON-REACTIVE HEPATITIS C ANTIBODY (test c ode = 4675) NON-REACTIVE INTERPRETATION HEPATITIS A: (test code = 2552) (NOTE) INTERPRETATION HEPATITIS B: (test code = 38315) (NOTE) INTERPRETATION HEPATITIS C: (test code = 89864) (NOTE) CHLAMYDIA, AMPLIFIED, [id number] 00:00:00* Test Item Value Reference Range Interpretation Comme nts CHLAMYDIA, TMA (test code = 36644) NEGATIVE GC, AMPLIFIED, [id number] 00:00:00* Test Item Value Reference Range Interpretation Comme nts GONORRHEA, TMA (test code = 98066) NEGATIVE [id number] 00:00:00* Test Item Value Reference Range Interpretation Comme nts RPR RESULT (test code = 3501) NON-REACTIVE RPR TITER (test code = 3500) NOT INDIC. TITER VAGINAL PATHOGENS DNA [id number] 00:00:00* Test Item Value Reference Range Interpretation Comme nts CHERYL SPECIES (test code = 73172) NEGATIVE G. VAGINALIS (test code = 56880) POSITIVE T. VAGINALIS (test code = 51727) NEGATIVE CBC W/AUTO [id number] 00:00:00* Test Item Value Reference Range Interpretation Comme nts WBC (test code = 1001) 6.7 K/UL RBC (test code = 1002) 4.66 M/UL HEMOGLOBIN (test code = 1003) 13.5 G/DL HEMATOCRIT (test code = 1004) 39.0 % MCV (test code = 1005) 83.7 fL MCH (test code = 1006) 29.0 PG MCHC (test code = 1007) 34.6 G/DL RDW (test code = 1038) 12.8 % NEUTROPHILS (test code = 1008) 44.7 % LYMPHOCYTES (test code = 1010) 47.8 % MONOCYTES (test code = 1011) 5.7 % EOSINOPHILS (test code = 1012) 0.9 % BASOPHILS (test code = 1013) 0.9 % PLATELET COUNT (test code = 1015) 385 K/UL COMPREHENSIVE METABOLIC [id number] 00:00:00* Test Item Value Reference Range Interpretation Comme nts GLUCOSE (test code = 2217) 98 MG/DL BUN (test code = 2208) 13 MG/DL CREATININE (test code = 2214) 0.61 MG/DL eGFR AMER. (test cod e = 80179) 138 ML/MIN/1.73 eGFR NON- AMER. (test code = 14173) 119 ML/MIN/1.73 CALC BUN/CREAT (test code = 2235) 21 RATIO SODIUM (test code = 2231) 139 MEQ/L POTASSIUM (test code = 2228) 4.4 MEQ/L CHLORIDE (test code = 2215) 102 MEQ/L CARBON DIOXIDE (test code = 2206) 26 MEQ/L CALCIUM (test code = 2209) 9.5 MG/DL PROTEIN, TOTAL (test code = 2229) 7.3 G/DL ALBUMIN (test code = 2201) 4.7 G/DL CALC GLOBULIN (test code = 2240) 2.6 G/DL CALC A/G RATIO (test code = 2234) 1.8 RATIO BILIRUBIN, TOTAL (test code = 2207) <0.2 MG/DL ALKALINE PHOSPHATASE (test code = 2204) 60 U/L AST (test code = 2218) 38 U/L ALT (test code = 2219) 50 U/L LIPID [id number] 00:00:00* Test Item Value Reference Range Interpretation Comme nts CHOLESTEROL (test code = 2210) 173 MG/DL TRIGLYCERIDES (test code = 2232) 167 MG/DL HDL CHOLESTEROL (test code = 2220) 46 MG/DL CALC LDL CHOL (test code = 2237) 100 MG/DL RISK RATIO LDL/HDL (test cod e = 2238) 2.17 RATIO HEMOGLOBIN [id number] 00:00:00* Test Item Value Reference Range Interpretation Comme nts HEMOGLOBIN A1c (test code = 63100) 5.5 % [id number] 00:00:00* Test Item Value Reference Range Interpretation Comme nts TSH, THIRD GENERATION (test code = 2821) 0.904 UIU/ML HIV AB/AG COMBO RFLX [id number] 00:00:00* Test Item Value Reference Range Interpretation Comme nts HIV 1/2 4TH GEN, RFLX CONF ( test code = 3514) NON-REACTIVE ACUTE HEPATITIS [id number] 00:00:00* Test Item Value Reference Range Interpretation Comme nts HEPATITIS A IgM (test code = 55726) NON-REACTIVE HEPATITIS B CORE IgM (test c ode = 4644) NON-REACTIVE HEPATITIS B SURF AG (test co de = 2739) NON-REACTIVE HEPATITIS C ANTIBODY (test c ode = 4675) NON-REACTIVE INTERPRETATION HEPATITIS A: (test code = 2552) (NOTE) INTERPRETATION HEPATITIS B: (test code = 64186) (NOTE) INTERPRETATION HEPATITIS C: (test code = 17064) (NOTE) CHLAMYDIA, AMPLIFIED, [id number] 00:00:00* Test Item Value Reference Range Interpretation Comme nts CHLAMYDIA, TMA (test code = 08346) NEGATIVE GC, AMPLIFIED, [id number] 00:00:00* Test Item Value Reference Range Interpretation Comme nts GONORRHEA, TMA (test code = 84652) NEGATIVE [id number] 00:00:00* Test Item Value Reference Range Interpretation Comme nts RPR RESULT (test code = 3501) NON-REACTIVE RPR TITER (test code = 3500) NOT INDIC. TITER VAGINAL PATHOGENS DNA [id number] 00:00:00* Test Item Value Reference Range Interpretation Comme nts CHERYL SPECIES (test code = 99461) NEGATIVE G. VAGINALIS (test code = 07746) POSITIVE T. VAGINALIS (test code = 61789) NEGATIVE CBC W/AUTO [id number] 00:00:00* Test Item Value Reference Range Interpretation Comme nts WBC (test code = 1001) 6.7 K/UL RBC (test code = 1002) 4.66 M/UL HEMOGLOBIN (test code = 1003) 13.5 G/DL HEMATOCRIT (test code = 1004) 39.0 % MCV (test code = 1005) 83.7 fL MCH (test code = 1006) 29.0 PG MCHC (test code = 1007) 34.6 G/DL RDW (test code = 1038) 12.8 % NEUTROPHILS (test code = 1008) 44.7 % LYMPHOCYTES (test code = 1010) 47.8 % MONOCYTES (test code = 1011) 5.7 % EOSINOPHILS (test code = 1012) 0.9 % BASOPHILS (test code = 1013) 0.9 % PLATELET COUNT (test code = 1015) 385 K/UL COMPREHENSIVE METABOLIC [id number] 00:00:00* Test Item Value Reference Range Interpretation Comme nts GLUCOSE (test code = 2217) 98 MG/DL BUN (test code = 2208) 13 MG/DL CREATININE (test code = 2214) 0.61 MG/DL eGFR AMER. (test cod e = 17222) 138 ML/MIN/1.73 eGFR NON- AMER. (test code = 99328) 119 ML/MIN/1.73 CALC BUN/CREAT (test code = 2235) 21 RATIO SODIUM (test code = 2231) 139 MEQ/L POTASSIUM (test code = 2228) 4.4 MEQ/L CHLORIDE (test code = 2215) 102 MEQ/L CARBON DIOXIDE (test code = 2206) 26 MEQ/L CALCIUM (test code = 2209) 9.5 MG/DL PROTEIN, TOTAL (test code = 2229) 7.3 G/DL ALBUMIN (test code = 2201) 4.7 G/DL CALC GLOBULIN (test code = 2240) 2.6 G/DL CALC A/G RATIO (test code = 2234) 1.8 RATIO BILIRUBIN, TOTAL (test code = 2207) <0.2 MG/DL ALKALINE PHOSPHATASE (test code = 2204) 60 U/L AST (test code = 2218) 38 U/L ALT (test code = 2219) 50 U/L LIPID [id number] 00:00:00* Test Item Value Reference Range Interpretation Comme nts CHOLESTEROL (test code = 2210) 173 MG/DL TRIGLYCERIDES (test code = 2232) 167 MG/DL HDL CHOLESTEROL (test code = 2220) 46 MG/DL CALC LDL CHOL (test code = 2237) 100 MG/DL RISK RATIO LDL/HDL (test cod e = 2238) 2.17 RATIO HEMOGLOBIN [id number] 00:00:00* Test Item Value Reference Range Interpretation Comme nts HEMOGLOBIN A1c (test code = 96880) 5.5 % [id number] 00:00:00* Test Item Value Reference Range Interpretation Comme nts TSH, THIRD GENERATION (test code = 2821) 0.904 UIU/ML HIV AB/AG COMBO RFLX [id number] 00:00:00* Test Item Value Reference Range Interpretation Comme nts HIV 1/2 4TH GEN, RFLX CONF ( test code = 3514) NON-REACTIVE ACUTE HEPATITIS [id number] 00:00:00* Test Item Value Reference Range Interpretation Comme nts HEPATITIS A IgM (test code = 36817) NON-REACTIVE HEPATITIS B CORE IgM (test c ode = 4644) NON-REACTIVE HEPATITIS B SURF AG (test co de = 2739) NON-REACTIVE HEPATITIS C ANTIBODY (test c ode = 4675) NON-REACTIVE INTERPRETATION HEPATITIS A: (test code = 2552) (NOTE) INTERPRETATION HEPATITIS B: (test code = 94643) (NOTE) INTERPRETATION HEPATITIS C: (test code = 89627) (NOTE) CHLAMYDIA, AMPLIFIED, [id number] 00:00:00* Test Item Value Reference Range Interpretation Comme nts CHLAMYDIA, TMA (test code = 55715) NEGATIVE GC, AMPLIFIED, [id number] 00:00:00* Test Item Value Reference Range Interpretation Comme nts GONORRHEA, TMA (test code = 03314) NEGATIVE [id number] 00:00:00* Test Item Value Reference Range Interpretation Comme nts RPR RESULT (test code = 3501) NON-REACTIVE RPR TITER (test code = 3500) NOT INDIC. TITER VAGINAL PATHOGENS DNA [id number] 00:00:00* Test Item Value Reference Range Interpretation Comme nts CHERYL SPECIES (test code = 64328) NEGATIVE G. VAGINALIS (test code = 51828) POSITIVE T. VAGINALIS (test code = 12776) NEGATIVE CBC W/AUTO [id number] 00:00:00* Test Item Value Reference Range Interpretation Comme nts WBC (test code = 1001) 6.7 K/UL RBC (test code = 1002) 4.66 M/UL HEMOGLOBIN (test code = 1003) 13.5 G/DL HEMATOCRIT (test code = 1004) 39.0 % MCV (test code = 1005) 83.7 fL MCH (test code = 1006) 29.0 PG MCHC (test code = 1007) 34.6 G/DL RDW (test code = 1038) 12.8 % NEUTROPHILS (test code = 1008) 44.7 % LYMPHOCYTES (test code = 1010) 47.8 % MONOCYTES (test code = 1011) 5.7 % EOSINOPHILS (test code = 1012) 0.9 % BASOPHILS (test code = 1013) 0.9 % PLATELET COUNT (test code = 1015) 385 K/UL COMPREHENSIVE METABOLIC [id number] 00:00:00* Test Item Value Reference Range Interpretation Comme nts GLUCOSE (test code = 2217) 98 MG/DL BUN (test code = 2208) 13 MG/DL CREATININE (test code = 2214) 0.61 MG/DL eGFR AMER. (test cod e = 50816) 138 ML/MIN/1.73 eGFR NON- AMER. (test code = 87008) 119 ML/MIN/1.73 CALC BUN/CREAT (test code = 2235) 21 RATIO SODIUM (test code = 2231) 139 MEQ/L POTASSIUM (test code = 2228) 4.4 MEQ/L CHLORIDE (test code = 2215) 102 MEQ/L CARBON DIOXIDE (test code = 2206) 26 MEQ/L CALCIUM (test code = 2209) 9.5 MG/DL PROTEIN, TOTAL (test code = 2229) 7.3 G/DL ALBUMIN (test code = 2201) 4.7 G/DL CALC GLOBULIN (test code = 2240) 2.6 G/DL CALC A/G RATIO (test code = 2234) 1.8 RATIO BILIRUBIN, TOTAL (test code = 2207) <0.2 MG/DL ALKALINE PHOSPHATASE (test code = 2204) 60 U/L AST (test code = 2218) 38 U/L ALT (test code = 2219) 50 U/L LIPID [id number] 00:00:00* Test Item Value Reference Range Interpretation Comme nts CHOLESTEROL (test code = 2210) 173 MG/DL TRIGLYCERIDES (test code = 2232) 167 MG/DL HDL CHOLESTEROL (test code = 2220) 46 MG/DL CALC LDL CHOL (test code = 2237) 100 MG/DL RISK RATIO LDL/HDL (test cod e = 2238) 2.17 RATIO HEMOGLOBIN [id number] 00:00:00* Test Item Value Reference Range Interpretation Comme nts HEMOGLOBIN A1c (test code = 35972) 5.5 % [id number] 00:00:00* Test Item Value Reference Range Interpretation Comme nts TSH, THIRD GENERATION (test code = 2821) 0.904 UIU/ML HIV AB/AG COMBO RFLX [id number] 00:00:00* Test Item Value Reference Range Interpretation Comme nts HIV 1/2 4TH GEN, RFLX CONF ( test code = 3514) NON-REACTIVE ACUTE HEPATITIS [id number] 00:00:00* Test Item Value Reference Range Interpretation Comme nts HEPATITIS A IgM (test code = 41785) NON-REACTIVE HEPATITIS B CORE IgM (test c ode = 4644) NON-REACTIVE HEPATITIS B SURF AG (test co de = 2739) NON-REACTIVE HEPATITIS C ANTIBODY (test c ode = 4675) NON-REACTIVE INTERPRETATION HEPATITIS A: (test code = 2552) (NOTE) INTERPRETATION HEPATITIS B: (test code = 41419) (NOTE) INTERPRETATION HEPATITIS C: (test code = 49701) (NOTE) CHLAMYDIA, AMPLIFIED, [id number] 00:00:00* Test Item Value Reference Range Interpretation Comme nts CHLAMYDIA, TMA (test code = 41338) NEGATIVE GC, AMPLIFIED, [id number] 00:00:00* Test Item Value Reference Range Interpretation Comme nts GONORRHEA, TMA (test code = 77866) NEGATIVE [id number] 00:00:00* Test Item Value Reference Range Interpretation Comme nts RPR RESULT (test code = 3501) NON-REACTIVE RPR TITER (test code = 3500) NOT INDIC. TITER VAGINAL PATHOGENS DNA [id number] 00:00:00* Test Item Value Reference Range Interpretation Comme nts CHERYL SPECIES (test code = 45259) NEGATIVE G. VAGINALIS (test code = 68194) POSITIVE T. VAGINALIS (test code = 56612) NEGATIVE CBC W/AUTO [id number] 00:00:00* Test Item Value Reference Range Interpretation Comme nts WBC (test code = 1001) 6.7 K/UL RBC (test code = 1002) 4.66 M/UL HEMOGLOBIN (test code = 1003) 13.5 G/DL HEMATOCRIT (test code = 1004) 39.0 % MCV (test code = 1005) 83.7 fL MCH (test code = 1006) 29.0 PG MCHC (test code = 1007) 34.6 G/DL RDW (test code = 1038) 12.8 % NEUTROPHILS (test code = 1008) 44.7 % LYMPHOCYTES (test code = 1010) 47.8 % MONOCYTES (test code = 1011) 5.7 % EOSINOPHILS (test code = 1012) 0.9 % BASOPHILS (test code = 1013) 0.9 % PLATELET COUNT (test code = 1015) 385 K/UL COMPREHENSIVE METABOLIC [id number] 00:00:00* Test Item Value Reference Range Interpretation Comme nts GLUCOSE (test code = 2217) 98 MG/DL BUN (test code = 2208) 13 MG/DL CREATININE (test code = 2214) 0.61 MG/DL eGFR AMER. (test cod e = 04775) 138 ML/MIN/1.73 eGFR NON- AMER. (test code = 49559) 119 ML/MIN/1.73 CALC BUN/CREAT (test code = 2235) 21 RATIO SODIUM (test code = 2231) 139 MEQ/L POTASSIUM (test code = 2228) 4.4 MEQ/L CHLORIDE (test code = 2215) 102 MEQ/L CARBON DIOXIDE (test code = 2206) 26 MEQ/L CALCIUM (test code = 2209) 9.5 MG/DL PROTEIN, TOTAL (test code = 2229) 7.3 G/DL ALBUMIN (test code = 2201) 4.7 G/DL CALC GLOBULIN (test code = 2240) 2.6 G/DL CALC A/G RATIO (test code = 2234) 1.8 RATIO BILIRUBIN, TOTAL (test code = 2207) <0.2 MG/DL ALKALINE PHOSPHATASE (test code = 2204) 60 U/L AST (test code = 2218) 38 U/L ALT (test code = 2219) 50 U/L LIPID [id number] 00:00:00* Test Item Value Reference Range Interpretation Comme nts CHOLESTEROL (test code = 2210) 173 MG/DL TRIGLYCERIDES (test code = 2232) 167 MG/DL HDL CHOLESTEROL (test code = 2220) 46 MG/DL CALC LDL CHOL (test code = 2237) 100 MG/DL RISK RATIO LDL/HDL (test cod e = 2238) 2.17 RATIO HEMOGLOBIN [id number] 00:00:00* Test Item Value Reference Range Interpretation Comme nts HEMOGLOBIN A1c (test code = 23906) 5.5 % [id number] 00:00:00* Test Item Value Reference Range Interpretation Comme nts TSH, THIRD GENERATION (test code = 2821) 0.904 UIU/ML HIV AB/AG COMBO RFLX [id number] 00:00:00* Test Item Value Reference Range Interpretation Comme nts HIV 1/2 4TH GEN, RFLX CONF ( test code = 3514) NON-REACTIVE ACUTE HEPATITIS [id number] 00:00:00* Test Item Value Reference Range Interpretation Comme nts HEPATITIS A IgM (test code = 96281) NON-REACTIVE HEPATITIS B CORE IgM (test c ode = 4644) NON-REACTIVE HEPATITIS B SURF AG (test co de = 2739) NON-REACTIVE HEPATITIS C ANTIBODY (test c ode = 4631) NON-REACTIVE INTERPRETATION HEPATITIS A: (test code = 2552) (NOTE) INTERPRETATION HEPATITIS B: (test code = 76846) (NOTE) INTERPRETATION HEPATITIS C: (test code = 62596) (NOTE) CHLAMYDIA, AMPLIFIED, [id number] 00:00:00* Test Item Value Reference Range Interpretation Comme nts CHLAMYDIA, TMA (test code = 07660) NEGATIVE GC, AMPLIFIED, [id number] 00:00:00* Test Item Value Reference Range Interpretation Comme nts GONORRHEA, TMA (test code = 40457) NEGATIVE [id number] 00:00:00* Test Item Value Reference Range Interpretation Comme nts RPR RESULT (test code = 3501) NON-REACTIVE RPR TITER (test code = 3500) NOT INDIC. TITER VAGINAL PATHOGENS DNA [id number] 00:00:00* Test Item Value Reference Range Interpretation Comme nts CHERYL SPECIES (test code = ) NEGATIVE G. VAGINALIS (test code = 29382) POSITIVE T. VAGINALIS (test code = 58390) NEGATIVE CBC W/AUTO [id number] 00:00:00* Test Item Value Reference Range Interpretation Comme nts WBC (test code = 1001) 6.7 K/UL RBC (test code = 1002) 4.66 M/UL HEMOGLOBIN (test code = 1003) 13.5 G/DL HEMATOCRIT (test code = 1004) 39.0 % MCV (test code = 1005) 83.7 fL MCH (test code = 1006) 29.0 PG MCHC (test code = 1007) 34.6 G/DL RDW (test code = 1038) 12.8 % NEUTROPHILS (test code = 1008) 44.7 % LYMPHOCYTES (test code = 1010) 47.8 % MONOCYTES (test code = 1011) 5.7 % EOSINOPHILS (test code = 1012) 0.9 % BASOPHILS (test code = 1013) 0.9 % PLATELET COUNT (test code = 1015) 385 K/UL VAGINAL PATHOGENS DNA [id number] 00:00:00* Test Item Value Reference Range Interpretation Comme nts CHERYL SPECIES (test code = ) NEGATIVE G. VAGINALIS (test code = 53786) POSITIVE T. VAGINALIS (test code = 03726) NEGATIVE COMPREHENSIVE METABOLIC [id number] 00:00:00* Test Item Value Reference Range Interpretation Comme nts GLUCOSE (test code = 2217) 98 MG/DL BUN (test code = 2208) 13 MG/DL CREATININE (test code = 2214) 0.61 MG/DL eGFR AMER. (test cod e = 02017) 138 ML/MIN/1.73 eGFR NON- AMER. (test code = 56626) 119 ML/MIN/1.73 CALC BUN/CREAT (test code = 2235) 21 RATIO SODIUM (test code = 2231) 139 MEQ/L POTASSIUM (test code = 2228) 4.4 MEQ/L CHLORIDE (test code = 2215) 102 MEQ/L CARBON DIOXIDE (test code = 2206) 26 MEQ/L CALCIUM (test code = 2209) 9.5 MG/DL PROTEIN, TOTAL (test code = 2229) 7.3 G/DL ALBUMIN (test code = 2201) 4.7 G/DL CALC GLOBULIN (test code = 2240) 2.6 G/DL CALC A/G RATIO (test code = 2234) 1.8 RATIO BILIRUBIN, TOTAL (test code = 2207) <0.2 MG/DL ALKALINE PHOSPHATASE (test code = 2204) 60 U/L AST (test code = 2218) 38 U/L ALT (test code = 2219) 50 U/L CBC W/AUTO [id number] 00:00:00* Test Item Value Reference Range Interpretation Comme nts WBC (test code = 1001) 6.7 K/UL RBC (test code = 1002) 4.66 M/UL HEMOGLOBIN (test code = 1003) 13.5 G/DL HEMATOCRIT (test code = 1004) 39.0 % MCV (test code = 1005) 83.7 fL MCH (test code = 1006) 29.0 PG MCHC (test code = 1007) 34.6 G/DL RDW (test code = 1038) 12.8 % NEUTROPHILS (test code = 1008) 44.7 % LYMPHOCYTES (test code = 1010) 47.8 % MONOCYTES (test code = 1011) 5.7 % EOSINOPHILS (test code = 1012) 0.9 % BASOPHILS (test code = 1013) 0.9 % PLATELET COUNT (test code = 1015) 385 K/UL COMPREHENSIVE METABOLIC [id number] 00:00:00* Test Item Value Reference Range Interpretation Comme nts GLUCOSE (test code = 2217) 98 MG/DL BUN (test code = 2208) 13 MG/DL CREATININE (test code = 2214) 0.61 MG/DL eGFR AMER. (test cod e = 92611) 138 ML/MIN/1.73 eGFR NON- AMER. (test code = 53378) 119 ML/MIN/1.73 CALC BUN/CREAT (test code = 2235) 21 RATIO SODIUM (test code = 2231) 139 MEQ/L POTASSIUM (test code = 2228) 4.4 MEQ/L CHLORIDE (test code = 2215) 102 MEQ/L CARBON DIOXIDE (test code = 2206) 26 MEQ/L CALCIUM (test code = 2209) 9.5 MG/DL PROTEIN, TOTAL (test code = 2229) 7.3 G/DL ALBUMIN (test code = 2201) 4.7 G/DL CALC GLOBULIN (test code = 2240) 2.6 G/DL CALC A/G RATIO (test code = 2234) 1.8 RATIO BILIRUBIN, TOTAL (test code = 2207) <0.2 MG/DL ALKALINE PHOSPHATASE (test code = 2204) 60 U/L AST (test code = 2218) 38 U/L ALT (test code = 2219) 50 U/L LIPID [id number] 00:00:00* Test Item Value Reference Range Interpretation Comme nts CHOLESTEROL (test code = 2210) 173 MG/DL TRIGLYCERIDES (test code = 2232) 167 MG/DL HDL CHOLESTEROL (test code = 2220) 46 MG/DL CALC LDL CHOL (test code = 2237) 100 MG/DL RISK RATIO LDL/HDL (test cod e = 2238) 2.17 RATIO HEMOGLOBIN [id number] 00:00:00* Test Item Value Reference Range Interpretation Comme [facility] HEMOGLOBIN A1c (test code = 31928) 5.5 % [id number] 00:00:00* Test Item Value Reference Range Interpretation Comme [facility] TSH, THIRD GENERATION (test code = 2821) 0.904 UIU/ML HIV AB/AG COMBO RFLX [id number] 00:00:00* Test Item Value Reference Range Interpretation Comme [facility] HIV 1/2 4TH GEN, RFLX CONF ( test code = 3514) NON-REACTIVE ACUTE HEPATITIS [id number] 00:00:00* Test Item Value Reference Range Interpretation Comme nts HEPATITIS A IgM (test code = 84308) NON-REACTIVE HEPATITIS B CORE IgM (test c ode = 4644) NON-REACTIVE HEPATITIS B SURF AG (test co de = 2739) NON-REACTIVE HEPATITIS C ANTIBODY (test c ode = 4675) NON-REACTIVE INTERPRETATION HEPATITIS A: (test code = 2552) (NOTE) INTERPRETATION HEPATITIS B: (test code = 96341) (NOTE) INTERPRETATION HEPATITIS C: (test code = 36052) (NOTE) LIPID [id number] 00:00:00* Test Item Value Reference Range Interpretation Comme nts CHOLESTEROL (test code = 2210) 173 MG/DL TRIGLYCERIDES (test code = 2232) 167 MG/DL HDL CHOLESTEROL (test code = 2220) 46 MG/DL CALC LDL CHOL (test code = 2237) 100 MG/DL RISK RATIO LDL/HDL (test cod e = 2238) 2.17 RATIO CHLAMYDIA, AMPLIFIED, [id number] 00:00:00* Test Item Value Reference Range Interpretation Comme nts CHLAMYDIA, TMA (test code = 42477) NEGATIVE GC, AMPLIFIED, [id number] 00:00:00* Test Item Value Reference Range Interpretation Comme nts GONORRHEA, TMA (test code = 87527) NEGATIVE [id number] 00:00:00* Test Item Value Reference Range Interpretation Comme nts RPR RESULT (test code = 3501) NON-REACTIVE RPR TITER (test code = 3500) NOT INDIC. TITER XR CHEST 2 VW [id number] 16:24:00No acute cardiopulmonary abnormality. Preliminary Report Dictated by Resident: Richard Lyon MD., have reviewed this study and agree with theabove report.PROCEDURE: XR CHEST 2 VW COVID CLINICAL INDICATION: Wheezing and shortness of breath COMPARISON: None FINDINGS: The lungs are clear. No pleural effusion or pneumothorax is seen. The heartis normal in size. No acute bony abnormality. [facility], Radiant Results Inft User - 02/20/2020 11:25 AM CDTPROCEDURE: XR CHEST 2 VW COVIDCLINICAL INDICATION: Wheezing and shortness of breathCOMPARISON: NoneFINDINGS:The lungs are clear. No pleural effusion or pneumothorax is seen. The heartis normal in size.No acute bony abnormality.IMPRESSIONNo acute cardiopulmonary abnormality. Preliminary Report Dictated by Resident: Richard Staton MD., have reviewed this study and agree with theabove report.[facility]2020-[facility] 17:55:00* Test Item Value Reference Range Interpretation Comme nts SARS-CoV-2 PCR (test code = 34211-4) Positive Not Detected A IDA (test code = IDA) [employer] Aptima SARS-CoV-2 Assay is a nucleic acid amplification test intended for the qualitative detection of RNA from SARS-CoV-2 from nasopharyngeal ([employer]OWING MACHINE [employer]ENDANT) specimens. ?It is used under Emergency Use Authorization (EUA) by FDA. A positive result is indicative of the presence of SARS-CoV-2 RNA. ?Clinical correlation with patient history and other diagnostic information is necessary to determine patient infection status. A negative (Not Detected) result does not preclude SARS-CoV-2 infection. ?Clinical correlation with patient history and other diagnostic information should be used in patient management decisions. Invalid: Unable to generate a valid test result on this specimen. ?Please submit a new specimen for repeat testing if clinically indicated. Lab Interpretation (test code = 72431-7) Abnormal [facility] URINALYSIS W SPECIFIC [id number] 17:03:00* Test Item Value Reference Range Interpretation Comme nts POCT U SP GRAV (test code = 3255) 1.020 mg/dl 1.005-1.025 POCT PH U (test code = 3254) 5 mg/dl 5-8 POCT U LEUK EST (test code = 3263) trace Negative - Negative POCT U NIT (test code = 3262) positive Negative - Negati ve POCT U PROT (test code = 3259) negative Negative - Negative POCT U GLU (test code = 3256) normal Negative - Negati ve POCT U KETONE (test code = 3258) negative Negative - Negative POCT U UROBILI (test code = 3260) normal 0.2-1 POCT U BILI (test code = 3261) negative Negative - Negative POCT U BLD (test code = 3257) negative Negative - Negati ve POCT U COLOR (test code = 3266) pale yellow POCT U APPEAR (test code = 3267) clear [facility] URINALYSIS W SPECIFIC [id number] 17:03:00* Test Item Value Reference Range Interpretation Comme nts POCT U SP GRAV (test code = 3255) 1.020 mg/dl 1.005-1.025 POCT PH U (test code = 3254) 5 mg/dl 5-8 POCT U LEUK EST (test code = 3263) trace Negative - Negative POCT U NIT (test code = 3262) positive Negative - Negati ve POCT U PROT (test code = 3259) negative Negative - Negative POCT U GLU (test code = 3256) normal Negative - Negati ve POCT U KETONE (test code = 3258) negative Negative - Negative POCT U UROBILI (test code = 3260) normal 0.2-1 POCT U BILI (test code = 3261) negative Negative - Negative POCT U BLD (test code = 3257) negative Negative - Negati ve POCT U COLOR (test code = 3266) pale yellow POCT U APPEAR (test code = 3267) clear [facility] URINALYSIS W SPECIFIC [id number] 17:03:00* Test Item Value Reference Range Interpretation Comme nts POCT U SP GRAV (test code = 3255) 1.020 mg/dl 1.005-1.025 POCT PH U (test code = 3254) 5 mg/dl 5-8 POCT U LEUK EST (test code = 3263) trace Negative - Negative POCT U NIT (test code = 3262) positive Negative - Negati ve POCT U PROT (test code = 3259) negative Negative - Negative POCT U GLU (test code = 3256) normal Negative - Negati ve POCT U KETONE (test code = 3258) negative Negative - Negative POCT U UROBILI (test code = 3260) normal 0.2-1 POCT U BILI (test code = 3261) negative Negative - Negative POCT U BLD (test code = 3257) negative Negative - Negati ve POCT U COLOR (test code = 3266) pale yellow POCT U APPEAR (test code = 3267) clear [facility] [id number] 17:00:00* Test Item Value Reference Range Interpretation Comme nts POCT PREG (test code = 1605) Negative On board controls acceptable with C Line (test code = 3574) No POCT PREG LOT # (test code = 3575) POCT PREG TEST DATE ( test code = 3576) [facility] [id number] 17:00:00* Test Item Value Reference Range Interpretation Comme nts POCT PREG (test code = 1605) Negative On board controls acceptable with C Line (test code = 3574) No POCT PREG LOT # (test code = 3575) POCT PREG TEST DATE ( test code = 3576) [facility] [id number] 17:00:00* Test Item Value Reference Range Interpretation Comme nts POCT PREG (test code = 1605) Negative On board controls acceptable with C Line (test code = 3574) No POCT PREG LOT # (test code = 3575) POCT PREG TEST DATE ( test code = 3576) [facility]2019-10-31 16:59:00* Test Item Value Reference Range Interpretation Comme nts POCT INFLUENZA A (test code = 3840) negative Negative - Negative POCT INFLUENZA B (test code = 3841) negative Negative - Negative [facility]2019-10-31 16:59:00* Test Item Value Reference Range Interpretation Comme nts POCT INFLUENZA A (test code = 3840) negative Negative - Negative POCT INFLUENZA B (test code = 3841) negative Negative - Negative [facility]2019-10-31 16:59:00* Test Item Value Reference Range Interpretation Comme nts POCT INFLUENZA A (test code = 3840) negative Negative - Negative POCT INFLUENZA B (test code = 3841) negative Negative - Negative [facility]
--- NOTE | 2024-06-23 06:49 | ER ---
Nurse's Notes [facility] Name: Noé Gallegos Age: 38 yrs Sex: Female : 1985 Arrival Date: 06/23/2024 Time: 06:15 Bed 4 Private MD: Angélica Howe H Diagnosis: Bitten by dog;Cellulitis of abdominal wall;Acute pharyngitis, unspecified Presentation: 06/23 06:20 Chief complaint: Patient states: i was bit by a dog Yosef night. this morning I woke bm8 up with a terrible sore throat, and headache. I took 600 mg of motrin at 0400. Coronavirus screen: At this time, the client does not indicate any symptoms associated with coronavirus-19. Ebola Screen: Patient negative for fever greater than or equal to 101.5 degrees Fahrenheit, and additional compatible Ebola Virus Disease symptoms Patient denies exposure to infectious person. Patient denies travel to an Ebola-affected area in the 21 days before illness onset. No symptoms or risks identified at this time. Initial Sepsis Screen: Does the patient meet any 2 criteria? No. Patient's initial sepsis screen is negative. Does the patient have a suspected source of infection? No. Patient's initial sepsis screen is negative. Risk Assessment: Do you want to hurt yourself or someone else? Patient reports no desire to harm self or others. Onset of symptoms was June 20, 2024. 06:20 Method Of Arrival: Ambulatory 8 06:20 Acuity: JESSICA 4 bm8 Triage Assessment: 06:41 Bite description: bite sustained to right upper quadrant, left upper quadrant, right bm8 lower quadrant and left lower quadrant is superficial, from animal, domesticated dog was sustained 3 days by a dog, animal information: Appearance: appeared well, is superficial, from animal, vaccination(s) is unknown, was sustained 3 days. General: Appears in no apparent distress. uncomfortable, Behavior is calm, cooperative, appropriate for age. Pain: Complains of pain in abdomen and throat Pain currently is 5 out of 10 on a pain scale. EENT: Throat is reddened has enlarged tonsils on right on left with gag reflex present, Reports pain. Neuro: Level of Consciousness is awake, alert, obeys commands, Oriented to person, place, time, situation, Appropriate for age. Cardiovascular: Denies chest pain, Capillary refill < 3 seconds in bilateral fingers Patient's skin is warm and dry. Respiratory: Airway is patent Respiratory effort is even, unlabored, Respiratory pattern is regular, symmetrical. GI: No signs and/or symptoms were reported involving the gastrointestinal system. : No signs and/or symptoms were reported regarding the genitourinary system. Derm: No signs and/or symptoms reported regarding the dermatologic system. Reports bruising to abd post dog bite three days ago. Musculoskeletal: No signs and/or symptoms reported regarding the musculoskeletal system. 06:43 Bite description: bite sustained to abdomen by a dog, animal information: vc1 vaccination(s) is unknown, was sustained sunday Animal control has been notified. General: Appears in no apparent distress. uncomfortable, obese, well groomed, well developed, Behavior is calm, cooperative, appropriate for age. Pain: Complains of pain in throat and headache. EENT: Throat is reddened Reports pain when swallowing Pain is 8 out of 10 on a pain scale. Neuro: Level of Consciousness is awake, alert, obeys commands. Cardiovascular: No deficits noted. Capillary refill < 3 seconds Patient's skin is warm and dry. Respiratory: Airway is patent Respiratory effort is even, unlabored, Respiratory pattern is regular, symmetrical, Breath sounds are clear bilaterally. GI: Abdomen is round non-distended. : No deficits noted. No signs and/or symptoms were reported regarding the genitourinary system. Derm: Wound noted abdomen Bruising that is dark purple, brown. Musculoskeletal: Circulation, motion, and sensation intact. Range of motion: intact in all extremities. 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 - Infectious Disease History:: Denies. Denies. - Social history:: Smoking status: Patient denies any tobacco usage or history of. Smoking status: Patient denies any tobacco usage or history of. Patient/guardian denies using alcohol, street drugs. - Family history:: not pertinent. - Hospitalizations: : No recent hospitalization is reported. Screenin:46 [facility] ED Fall Risk Assessment (Adult) History of falling in the last 3 months, vc1 including since admission No falls in past 3 months (0 pts) Confusion or Disorientation No (0 pts) Intoxicated or Sedated No (0 pts) Impaired Gait No (0 pts) Mobility Assist Device Used No (0 pt) Altered Elimination No (0 pt) Score/Fall Risk Level 0 - 2 = Low Risk Oriented to surroundings, Maintained a safe environment, Educated pt \T\ family on fall prevention, incl call for assistance when getting out of bed. Abuse screen: Denies threats or abuse. Nutritional screening: No deficits noted. Tuberculosis screening: No symptoms or risk factors identified. Assessment: 06:46 Reassessment: see triage assessment. bm8 06:58 Reassessment: Patient appears in no apparent distress at this time. Patient and/or bm8 family updated on plan of care and expected duration. Pain level reassessed. Patient is alert, oriented x 3, equal unlabored respirations, skin warm/dry/pink. Patient denies pain at this time. Patient states feeling better. Vital Signs: 06:20 BP 141 / 94; Pulse 91; Resp 17; Temp 98.4; Pulse Ox 99% ; Weight 99.34 kg; Height 5 ft. bm8 4 in. ; Pain 5/10; 06:58 BP 135 / 86; Pulse 87; Resp 18; Temp 98.4; Pulse Ox 99% ; Pain 3/10; bm8 06:20 Body Mass Index 37.59 (99.34 kg, 162.56 cm) bm8 06:20 Pain Scale: Adult bm8 06:58 Pain Scale: Adult bm8 Deonna Coma Score: 06:58 Eye Response: spontaneous(4). Motor Response: obeys commands(6). Verbal Response: bm8 oriented(5). Total: 15. ED Course: 06:18 Patient arrived in ED. gm2 06:19 Angélica Howe DO is Private Physician. gm2 06:39 Sivakumar Fonseca, RN is Primary Nurse. bm8 06:41 Erik Yo MD is Attending Physician. rn 06:41 Triage completed. bm8 06:43 Arm band placed on right wrist. vc1 06:46 Patient has correct armband on for positive identification. Bed in low position. Call vc1 light in reach. Provided Education on: call light. Client placed on continuous cardiac and pulse oximetry monitoring. NIBP monitoring applied. Pulse ox on. NIBP on. 06:46 Door closed. Noise minimized. Verbal reassurance given. Head of bed elevated. bm8 06:46 Patient maintains SpO2 saturation greater than 95% on room air. bm8 06:47 No provider procedures requiring assistance completed. Patient did not have IV access vc1 during this emergency room visit. Administered Medications: 06:50 Not Given (med not avaliablee): amoxicillin-[id number] mg PO once lg3 06:51 Drug: Clindamycin PO 300 mg PO once Route: PO; lg3 06:57 Follow up: Response: No adverse reaction bm8 06:57 Drug: Rocephin (cefTRIAXone) IM 1 grams IM once Route: IM; Site: left gluteus; bm8 06:57 Follow up: Response: No adverse reaction; Medication administered at discharge. bm8 Medication: 06:46 VIS not applicable for this client. bm8 Outcome: 06:49 Discharge ordered by . rn 06:58 Discharged to home ambulatory, bm8 06:58 Condition: stable 06:58 Discharge instructions given to patient, Instructed on discharge instructions, follow up and referral plans. no drinking with medication, no driving heavy equipment, medication usage, safety practices, Demonstrated understanding of instructions, follow-up care, medications, Prescriptions given X 2, 07:01 Patient left the ED. bm8 Signatures: Erik Yo MD MD rn Able, Lacie, RN RN lg3 Berna Chambers RN RN 1 Karey Conroy 2 Sivakumar Fonseca, RN RN bm8 Corrections: (The following items were deleted from the chart) 06:43 06:41 Home Meds: Adderall XR Oral; bm8 bm8 06:43 06:41 PSHx: None; bm8 bm8
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
[2024-06-23] MEDS ORDERED: CEFTRIAXONE 1000 MG/VIAL ONE (06:52)
[2024-06-23] MEDS ORDERED: WATER FOR INJ,STERILE 10 ML ONE (06:53)
[2024-06-23 07:06] VITALS: TEMP 98.4; O2SAT 99
[2024-06-23 07:07] VITALS: BP 135/86
== END 2024-06-23 07:01 | disposition home or self-care (01) ==
LOC: ER 06:15
DX: L03.311 Cellulitis of abdominal wall (principal); W54.0XXA Bitten by dog, initial encounter; J02.9 Acute pharyngitis, unspecified
CPT/HCPCS: 96372; 99284; J0696